=== PATIENT | female | born 2000 | race Caucasian/White ===

== ENCOUNTER 2020-08-16 12:53 | Outpatient (REF) | payer MEDICAID, SELFPAY ==
--- NOTE | 2020-08-16 13:10 | US_ITS ---
EXAMINATION: US DIAGNOSTIC ULTRASOUND BREAST, RIGHT CLINICAL INFORMATION: Right breast lump upper outer quadrant with pain.. COMPARISON: None. TECHNIQUE: Ultrasound of the breast is performed with real-time abreu scale imaging and color Doppler. FINDINGS: There is no focal suspicious finding. There is no solid mass, architectural abnormality, duct ectasia, or edema in the soft tissue planes. Results are discussed with the patient at time of visit. US/US breast RT limited IMPRESSION: No suspicious ultrasound findings in region of palpable abnormality right breast. Dense breast tissue present. ASSESSMENT: BI-RADS 1: Negative RECOMMENDATION: Patient should be managed based on the clinical impression. No suspicious ultrasound findings.
== END 2020-08-16 12:54 | disposition home or self-care (01) ==
LOC: HO.MAMMO 12:53
PROVIDERS: PCP Registered Nurse; Visit Provider Registered Nurse
DX: N63.11 Unspecified lump in the right breast, upper outer quadrant (principal); N64.4 Mastodynia
CPT/HCPCS: 76642

== ENCOUNTER 2021-06-19 10:59 | Outpatient (REF) | payer MEDICAID, SELFPAY ==
[2021-06-19 15:53] LABS: CT PCR NOT DETECTED (Not Detect.); NG PCR NOT DETECTED (Not Detect.)
[2021-06-20 08:40] LABS: BV Int Neg Control Negative (Negative); BV Int Pos Control Positive (Positive)
== END 2021-06-19 11:00 | disposition home or self-care (01) ==
LOC: HO.LAB 10:59
PROVIDERS: Visit Provider Advanced Practice Midwife
DX: Z01.419 Encounter for gynecological examination (general) (routine) without abnormal findings (principal); Z11.8 Encounter for screening for other infectious and parasitic diseases; Z11.3 Encounter for screening for infections with a predominantly sexual mode of transmission; Z88.8 Allergy status to other drugs, medicaments and biological substances
CPT/HCPCS: 87480; 87491; 87510; 87591; 87660; 88142

== ENCOUNTER 2021-08-12 09:37 | Emergency (ER) | payer MEDICAID, SELFPAY ==
--- NOTE | ~2021-08-12 | XR_ITS ---
EXAMINATION: LEFT HAND/WRIST. CLINICAL INFORMATION: Left wrist pain COMPARISON: None TECHNIQUE: 4 views FINDINGS: There is no visible acute fracture, dislocation or subluxation. Especially there is no fracture involving the scaphoid bone or the carpal bones. The soft tissues are normal. XR/XR hand wrist LT IMPRESSION: Unremarkable left hand/wrist exam.
[2021-08-12 10:13] VITALS: BP 105/67; PULSE 62; RESP 18; TEMP 36.2; O2SAT 99; BMI 25.4
--- NOTE | 2021-08-12 11:29 | ED.EXTPRO ---
HPI - Extremity Problem General Chief complaint: Extremity Injury, Upper Stated complaint: hand inj Time Seen by Provider: 08/12/21 10:36 Source: patient Mode of arrival: ambulatory History of Present Illness HPI Narrative: 20-year-old female with no significant past medical history presenting to the ED complaining of left wrist pain s/p stacking boxes at work since yesterday. Denies direct trauma/injury or fall. Denies numbness, tingling MD Complaint: extremity pain, joint swelling and joint paint Onset (ago): day(s) Related Data Home Medications Medication Instructions Recorded Confirmed etonogestrel 68 mg subdermal SUBDERMAL 06/19/21 06/19/21 implant (Nexplanon) Allergies Allergy/AdvReac Type Severity Reaction Status Date / Time ibuprofen [From MOTRIN] Allergy Unknown SWELLING Verified 06/19/21 11:11 Review of Systems Review of Systems: Constitutional: No Fever, No Chills ENT/Mouth: No Ear Pain, No Nasal Congestion, No sore throat Cardiovascular: No Chest Pain, No SOB Respiratory: No Cough, No Sputum, No Wheezing Gastrointestinal: No Nausea, No Vomiting, No Abdominal pain Musculoskeletal: + joint pain, No Myalgias, No Joint Swelling Skin: No Skin Lesions, No rash Neuro: No Weakness, No Numbness, No Paresthesias Yes all other systems are reviewed and are negative FOR[facility]LY [facility] Past Medical History Attestation statement: The following information was validated with the patient. Family History Family History Paternal Grandmother Breast cancer Social History Social History Alcohol intake: never Patient Tobacco Use Status: Never used Tobacco Advance Directives: No Advance Directives Information Provided: No Patient : No Gender identity: Female Physical Exam Vital Signs: Vital Signs: Last Vital Signs Temp 97.1 F 08/12/21 10:13 Pulse 62 08/12/21 10:13 Resp 18 08/12/21 10:13 BP 105/67 08/12/21 10:13 Pulse Ox 99 08/12/21 10:13 BMI result Body Mass Index 25.4 Const: General: cooperative, healthy appearing and no acute distress Orientation/consciousness: patient oriented x3 Limitations: no limitations HENMT: Head: Yes normal to inspection Ears: hearing grossly normal bilaterally General nose exam: Normal external nose present Face and sinus: Yes normal facial exam Eyes: General: appearance normal, both eyes and all related structures EOM: EOMs intact bilaterally Neck: Neck: Yes normal visual inspection and Yes no meningeal signs Resp: Effort & Inspection: normal respiratory effort and no respiratory distress Cardio: Rate: regular rate Peripheral pulses: radial pulses present Skin: Rashes: no rashes Wounds: no wounds Neuro: General: patient oriented x3 and no meningeal signs Gait exam (Neuro): Normal gait present Extrem: Other: Left wrist with scaphoid/radial aspect tenderness to palpation. No deformity. Limited inversion secondary to pain. Hand nontender. [id number] opposition intact. Neurovascular intact. Sensation intact to light touch. No erythema/fluctuance, no streaking General: Yes normal to inspection Course Course Course Narrative: XR hand wrist LT IMPRESSION: Unremarkable left hand/wrist exam. >> patient placed in thumb spica secondary to scaphoid tenderness. Discussed worrisome signs and symptoms and strict return precautions as needed follow-up with orthopedics MDM - Extremity (Nontraumatic) MDM Narrative Medical decision making narrative: 20-year-old female with no significant past medical history presenting to the ED complaining of left wrist pain s/p stacking boxes at work since yesterday. On exam vital signs stable, NAD, physical exam as above. Concern for wrist strain/sprain versus occult fracture/scaphoid fracture Plan: X-rays. Will place patient in thumb spica and follow-up with orthopedics Discharge Plan Discharge Clinical Impression: Strain of left wrist Qualifiers: Encounter type: initial encounter Qualified Code(s): S66.912A - Strain of unspecified muscle, fascia and tendon at wrist and hand level, left hand, initial encounter Patient Disposition: Home, Self-Care Instructions: Wrist Injury (ED) Additional Instructions: Your x-rays were unremarkable, however where you are tender we specifically worry about a specific bone, please wear wrist splint at all times you may take off to shower. Please follow-up with orthopedics in 1-2 weeks Take Tylenol and Motrin at home for pain/swelling Ice her wrist If pain becomes unbearable please return to the ED Prescriptions: No Action Nexplanon 68 mg implant subdermal RF: 0 Referrals: Inez Gruber MD [Physician] - 10 days
== END 2021-08-12 11:43 | disposition home or self-care (01) ==
PROVIDERS: Emergency Provider Emergency Medicine
DX: S66.912A Strain of unspecified muscle, fascia and tendon at wrist and hand level, left hand, initial encounter (principal); X50.0XXA Overexertion from strenuous movement or load, initial encounter; Y93.89 Activity, other specified; Y92.512 Supermarket, store or market as the place of occurrence of the external cause; Y99.0 Civilian activity done for income or pay
CPT/HCPCS: 29125; 73110; 73130; 99283

== ENCOUNTER 2022-06-19 12:42 | Outpatient (REF) | payer MEDICAID, SELFPAY | END 2022-06-19 12:43 | disposition home or self-care (01) | LOC: HO.MAMMO 12:42 | PROVIDERS: Visit Provider Registered Nurse | DX: Z13.89 Encounter for screening for other disorder (principal) ==

== ENCOUNTER 2022-06-19 12:55 | Outpatient (REF) | payer MEDICAID, SELFPAY ==
--- NOTE | ~2022-06-19 | US_ITS ---
EXAMINATION: US DIAGNOSTIC ULTRASOUND BREAST, RIGHT CLINICAL INFORMATION: 21-year-old with palpable fullness and tenderness outer right breast. No discharge. No erythema. COMPARISON: Ultrasound right breast 08/16/2020. TECHNIQUE: Ultrasound right breast is targeted to the areas of clinical concern outer quadrants using grayscale imaging and color Doppler without and with harmonics. Patient is able to point to the area of concern at time of imaging. FINDINGS: There is a small cyst 9:00 position 4 cm from nipple corresponding to area of clinical palpable concern. This is anechoic with increased through-transmission of sound and no associated color flow and measures 1.2 x 0.3 x 0.8 cm. There is no focal suspicious finding. There is no solid mass, architectural abnormality, duct ectasia, or edema in the soft tissue planes. No skin thickening or edema tracking in soft tissue planes. Results are discussed with the patient at time of visit. US/US breast RT limited IMPRESSION: -Small simple cyst at area of palpable concern measuring 1.2 x 0.3 x 0.8 cm. ASSESSMENT: BI-RADS 2: Benign RECOMMENDATION: Patient may be managed based on the clinical impression as needed.
== END 2022-06-19 12:56 | disposition home or self-care (01) ==
LOC: HO.MAMMO 12:55
PROVIDERS: Visit Provider Registered Nurse
DX: N60.21 Fibroadenosis of right breast (principal)
CPT/HCPCS: 76642

== ENCOUNTER 2022-07-15 12:21 | Outpatient (REF) | payer MEDICAID, SELFPAY ==
[2022-07-15 17:19] LABS: CT PCR NOT DETECTED (Not Detect.); NG PCR NOT DETECTED (Not Detect.)
[2022-07-16 09:02] LABS: BV Int Neg Control Negative (Negative); BV Int Pos Control Positive (Positive)
== END 2022-07-15 12:22 | disposition home or self-care (01) ==
LOC: HO.LNP 12:21
PROVIDERS: Visit Provider Advanced Practice Midwife
DX: Z01.419 Encounter for gynecological examination (general) (routine) without abnormal findings (principal)
CPT/HCPCS: 87480; 87491; 87510; 87591; 87660

== ENCOUNTER 2022-12-24 09:23 | Emergency (ER) | payer MEDICAID, SELFPAY ==
--- NOTE | ~2022-12-24 | XR_ITS ---
EXAMINATION: XR FOOT, LEFT CLINICAL INFORMATION: Pain. Injury. COMPARISON: None available. TECHNIQUE: AP, lateral, and oblique views of the left foot. FINDINGS: The bones and soft tissues are normal. No fracture. Alignment is anatomic. Joint spaces are maintained. XR/XR foot LT min 3V IMPRESSION: Normal left foot.
[2022-12-24 09:25] VITALS: BP 100/45; PULSE 63; RESP 20; TEMP 36.1; O2SAT 100; BMI 25.7
--- OUTSIDE RECORDS SUMMARY | 2022-12-24 09:50 | XMS_ITS | Continuity of Care Document ---
Author Name Unknown Organization [facility] Address [address] [place] [id number]- Care Team Providers Care Drill Hand Name Role Phone Yohana Posey MD Primary Care Physician [phone] Encounter [facility] [place] Date(s): 03/10/22 - 03/10/[address] [address]- Discharge Disposition: A-D/C Walkout Attending Physician: Not on Staff, Attending MD Admitting Physician: Not on Staff, Admitting MD Referring Physician: Not on Staff, Referring MD Allergies, Adverse Reactions, Alerts No Known Allergies Vital Signs Most recent to oldest [Reference Range]: 1 Oxygen Saturation [94-100 %] 100 % (03/10/22 1:43 AM) Pulse Rate [55-90 bpm] 75 bpm (03/10/22 1:43 AM) Blood Pressure [90-138/55-84 mm Hg] 130/ 68mm Hg (03/10/22 1:43 AM) Respiratory Rate [16-30 br/min] 16 br/mi n (03/10/22 1:43 AM) Temperature [96.8-100.4 DegF] 98.6 DegF (03/10/22 1:43 AM) Mode of Delivery (Oxygen) Room air (03/10/22 1:43 AM) Blood pressure sites Arm, left (03/10/22 1:43 AM) Temperature Route Oral (03/10/22 1:43 AM)
[2022-12-24 10:00] VITALS: BP 100/62; PULSE 57; RESP 16; O2SAT 100
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
== END 2022-12-24 12:06 | disposition home or self-care (01) ==
PROVIDERS: Emergency Provider Emergency Medicine Emergency Medical Services
DX: S00.83XA Contusion of other part of head, initial encounter (principal); S93.602A Unspecified sprain of left foot, initial encounter; Y04.2XXA Assault by strike against or bumped into by another person, initial encounter; Y93.9 Activity, unspecified; Y92.9 Unspecified place or not applicable; Y99.9 Unspecified external cause status
CPT/HCPCS: 73630; 99283; 99284

== ENCOUNTER 2023-06-18 12:01 | Outpatient (REF) | payer MEDICAID, SELFPAY ==
[2023-06-18 13:01] LABS: MANUAL DIFF FLAG NO
[2023-06-18 13:21] LABS: Basophils Percent Auto 0.2 % (0-2); Eosinophils Absolute Auto 0.1 X10*3/uL (0.0-0.4); Eosinophils Percent Auto 0.6 % (0-4); Hematocrit 38.2 % (37.0-47.0); Hemoglobin 12.3 g/dl (12.0-16.0); Imm Gran Abs Auto 0.02 X10*3/uL (0.00-0.03); Imm Gran Pct Auto 0.2 % (0.0-0.4); Lymphocytes Absolute Auto 2.1 X10*3/uL (1.2-4.9); Lymphocytes Percent Auto 24.8 % (20-40); Mean Corpuscular HGB Conc 32.2 g/dl (31.0-35.0); Mean Corpuscular Hemoglobin 28.4 pg (27.0-33.0); Mean Corpuscular Volume 88.2 fL (80.0-98.0); Monocytes Absolute Auto 0.6 X10*3/uL (0.1-1.2); Neutrophils Absolute Auto 5.5 x10*3/uL (2.0-8.3); Neutrophils Percent Auto 67.2 % (45-73); Platelet Count 283 X10*3/uL (160-400); Red Blood Count 4.33 X10*6/uL (4.20-5.50); White Blood Count 8.3 X10*3/uL (4.8-10.8)
[2023-06-18 14:06] LABS: Estimated Average Glucose 94 mg/dL; Hemoglobin A1c % 4.9 % (<6.0)
[2023-06-18 14:14] LABS: Alanine Aminotransferase 10 U/L (0-31); Albumin Level 4.5 g/dL (3.5-5.0); Alkaline Phosphatase 43 U/L (39-117); Anion Gap 12 (12-20); Aspartate Amino Transferase 15 U/L (5-31); Bilirubin Total 0.3 mg/dL (0.0-1.0); Blood Urea Nitrogen 11 mg/dL (9-16); Calcium 9.5 mg/dL (8.4-10.2); Carbon Dioxide 26 mmol/L (22-29); Chloride 105 mmol/L (96-108); Cholesterol 134 mg/dL (<200); Estimated Glomerular Filt Rate > 60; Glucose Random 95 mg/dL (60-115); HDL Cholesterol 56 mg/dL (>40); LDL Cholesterol Calculated 72 mg/dL (<100); Potassium 4.2 mmol/L (3.3-5.1); Sodium 139 mmol/L (135-145); Total Protein 6.9 g/dL (6.5-8.0); Triglycerides 32 mg/dL (<150)
[2023-06-18 14:29] LABS: TSH reflex Free T4 0.68 uIU/mL (0.32-4.0)
[2023-06-18 15:21] LABS: CT PCR NOT DETECTED (Not Detect.); NG PCR NOT DETECTED (Not Detect.)
[2023-06-19 03:54] LABS: Syphilis Screen Nonreactive (Nonreactive)
[2023-06-19 04:01] LABS: HBS Num1 15.66 mIU/mL (0-7.99); HBc Num1 0.08 S/CO (0.00-0.79); HBsAGNum1 0.37 S/CO (0.00-0.99); HIV AB/AG Nonreactive (Nonreactive); HIV Num 1 0.05 S/CO (0.00-0.99); Hepatitis B Core Antibody Nonreactive (Nonreactive); Hepatitis B Surface Antigen Negative (Negative); ~HepC Num1 0.07 S/CO (0.00-0.79); ~Hepatitis B Surface Antibody REACTIVE (Nonreactive); ~Hepatitis C Antibody Nonreactive (Nonreactive)
== END 2023-06-18 12:02 | disposition home or self-care (01) ==
LOC: HO.HHCL 12:01
PROVIDERS: Visit Provider Student in an Organized Health Care Education/Training Program
DX: Z00.00 Encounter for general adult medical examination without abnormal findings (principal)
CPT/HCPCS: 0353U; 80053; 80061; 83036; 84443; 85025; 86704; 86706; 86780; 86803; 87340; 87389

== ENCOUNTER 2023-07-17 15:00 | Outpatient (AMB) | payer MEDICAID, SELFPAY ==
--- NOTE | 2023-07-17 15:13 | A.OFFVIS_ITS ---
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 She had a Nexplanon inserted 2 years ago she has been bleeding more on the Nexplanon then she has not been bleeding a very irregular bleeding pattern she says she gets symptoms of BV which is the odor but not so much itching or any abnormal discharge and she has been using boric acid capsules herself she last used 1 yesterday and this morning she did not realize she had an appointment. As she recently saw her primary care provider who did blood work and told her she was not anemic. 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 She wears full P PE to protect herself. She is nervous about the pain of any procedure. [facility] Family History Paternal Grandmother Breast cancer Social History Alcohol intake: never Patient Tobacco Use Status: Never used Tobacco Substance Use Type: Marijuana Gender identity: Female Female Reproductive History Menstrual Age of Menarche: 10 Duration of menses: other (every 2 wks 7 days) Date of last menstrual period: 07/10/23 control method: implanted History of abnormal pap smear: No (last pap done /06/19/2021, neg.) Physical Exam Vital Signs: Last Vital Signs BP 110/60 07/17/23 15:17 BMI result Body Mass Index 24.4 Const Other: Nexplanon is palpable in left arm General: healthy appearing, comfortable, no acute distress, well developed and alert Nutritional Appearance: average body habitus Orientation/consciousness: patient oriented x3 Limitations: no limitations HEENT Head: Yes normocephalic Neck Neck: Yes normal visual inspection Chest Chest palpation & inspection: normal inspection of the chest Breast/axilla inspection: normal inspection of the breasts and normal inspection of the axillae Breast/axilla palpation: normal palpation of the breasts and normal palpation of the axillae Resp Effort & Inspection: normal respiratory effort GI Inspection: Yes normal to inspection, No Abdominal wall edema and No distended Palpation (GI): Soft to palpation and nontender Other: Vagina pink and moist there is clear discharge that almost peer appears like fertile mucus her cervix is open ever so slightly. Her uterus is retroverted mobile nontender she has good tone with Kegel General: Yes bladder normal to palpation External Female Exam: normal external appearance and normal appearance of the urethra Speculum Exam - Vagina: normal appearance of the vagina, normal palpation and normal vaginal discharge Speculum Exam - Cervix: normal appearance of the cervix, normal palpation and nontender Bimanual exam- vagina & uterus: normal bimanual exam, normal palpation, uterine size normal, bladder normal to palpation, consistency normal, normal palpation, uterine mobility normal, uterine shape normal, No Cervical tenderness present, non-tender and no cervical motion tenderness Bimanual Exam- Adnexa, other: normal adnexae, no masses, normal and No adnexal tenderness Neuro General: patient oriented x3 Assessment & Plan Assessment & Plan (1) control counseling: Code(s): Z30.09 - Encounter for other general counseling and advice on contraception (2) Well woman exam with routine gynecological exam: Code(s): Z01.419 - Encounter for gynecological examination (general) (routine) without abnormal findings (3) Encounter for surveillance of Nexplanon subdermal contraceptive: Code(s): Z30.46 - Encounter for surveillance of implantable subdermal contraceptive (4) Potential exposure to STD: Code(s): Z20.2 - Contact with and (suspected) exposure to infections with a predominantly sexual mode of transmission (5) Cervical cancer screening: Comment: 06/19/21 pap= neg Code(s): Z12.4 - Encounter for screening for malignant neoplasm of cervix (6) Breakthrough bleeding on Nexplanon: Comment: Recounts bleeding almost every other week for much of the last 2 years. Code(s): N92.1 - Excessive and frequent menstruation with irregular cycle; Z97.5 - Presence of (intrauterine) contraceptive device (7) Vaginal odor: Comment: She treats it herself with boric acid capsules. Exam completely normal and negative today. Code(s): N89.8 - Other specified noninflammatory disorders of vagina Plan -----Discussed in this visit the following: healthy balanced diet, regular and consistent exercise, getting recommended health screens, doing the best she can for her particular health concerns, kegel exercises, pap smear screening and followup recommendations, mammography screening and SBE, normal changes in cycles in her life stage--- .-I reviewed with the patient, all of the currently common used methods of control that are available. We reviewed how they work in the body, how they are taken, common side effects, uncommon side effects, precautions, and contraindications. -Discussed also factors that influence their effectiveness and use, and womens satisfaction with the method. -Discussed how each are used, and drawbacks of each method as well. -Methods covered included: condoms, control pills, control patches, control rings, Depo-Provera, Nexplanon, Mirena and Kyleena IUDs, and ParaGard IUDs. All of the above methods were covered in great detail including their side effect profiles and common experiences that women have and ways to mitigate against the negative experiences including attention to diet and exercise patient's with bleeding challenges that may occur her and efforts to time the initiation of the method to this start of the menstrual period. Patient was given a choice of continuing with the Nexplanon or trying a 1 month course of control pills to see if it would ameliorate some of the breakthrough bleeding. But after full discussion of all of the methods she has chosen to switch to a Mirena. I did discuss with her that I think that her cervix and uterus could accommodate a Mirena and not be it limited to using a Kyleena and it will give her better bleeding control after bleeding often on for 2 years. She is nervous that it will hurt and wants to bring her sister and I told her that is fine but sometimes people tense up more when they have somebody with them but it will be fine. Ideally it we would insert it when she is bleeding. I did show her her cervix that looked consistent with midcycle ovulatory mucus but that would not be expected to be present with a Nexplanon that is been in 2 years.. chart will be checked as much as is possible. Did tell her also that at this point it does not appear that she has any thing close to BV. Testing for gonorrhea chlamydia trichomoniasis Gardnerella and yeast done though the boric acid probably will interfere with results. Also discussed that for women with recurrent BV using condoms is a solution. Orders: Orders Bacterial Vaginosis Panel Today Z20.2 - Contact with and (suspected) exposure to infections with a predominantly sexual mode of transmission CT NG by PCR Today Z01.419 - Encounter for gynecological examination (general) (routine) without abnormal findings Coding Level of Care Code Est Pt Prev Care [id number]) Diagnoses control counseling Z30.09 Well woman exam with routine gynecological exam Z01.419 Encounter for surveillance of Nexplanon subdermal contraceptive Z30.46 Potential exposure to STD Z20.2 Cervical cancer screening Z12.4 Breakthrough bleeding on Nexplanon N92.1; Z97.5 Vaginal odor N89.8
[2023-07-17 15:17] VITALS: BP 110/60; BMI 24.4
== END 2023-07-17 15:53 | disposition home or self-care (01) ==
LOC: HO.HWS 15:00
PROVIDERS: PCP Student in an Organized Health Care Education/Training Program; Visit Provider Advanced Practice Midwife
DX: Z30.09 Encounter for other general counseling and advice on contraception (principal); Z01.419 Encounter for gynecological examination (general) (routine) without abnormal findings; Z30.46 Encounter for surveillance of implantable subdermal contraceptive; Z20.2 Contact with and (suspected) exposure to infections with a predominantly sexual mode of transmission; Z12.4 Encounter for screening for malignant neoplasm of cervix; N92.1 Excessive and frequent menstruation with irregular cycle; Z97.5 Presence of (intrauterine) contraceptive device; N89.8 Other specified noninflammatory disorders of vagina
CPT/HCPCS: 99395

== ENCOUNTER 2023-07-17 15:00 | Outpatient (REF) | payer MEDICAID, SELFPAY ==
[2023-07-18 03:16] LABS: CT PCR NOT DETECTED (Not Detect.); NG PCR NOT DETECTED (Not Detect.)
[2023-07-18 12:41] LABS: BV Int Neg Control Negative (Negative); BV Int Pos Control Positive (Positive)
== END 2023-07-17 15:01 | disposition home or self-care (01) ==
LOC: HO.LAB 15:00
PROVIDERS: PCP Student in an Organized Health Care Education/Training Program; Visit Provider Advanced Practice Midwife
DX: Z01.419 Encounter for gynecological examination (general) (routine) without abnormal findings (principal); Z20.2 Contact with and (suspected) exposure to infections with a predominantly sexual mode of transmission; N92.1 Excessive and frequent menstruation with irregular cycle; N89.8 Other specified noninflammatory disorders of vagina; Z97.5 Presence of (intrauterine) contraceptive device
CPT/HCPCS: 0353U; 87480; 87510; 87660; 99395

== ENCOUNTER 2023-07-29 09:39 | Outpatient (AMB) | payer MEDICAID, SELFPAY ==
--- NOTE | 2023-07-29 09:44 | A.OFFVIS_ITS ---
Intake Vital Signs 07/29/23 09:54 Height 5 ft 1 in Weight 131 lb BMI 24.7 BP 114/68 Intake Visit Reasons: Mirena Biological Science Technician Required: No Information Interpreted: non-clinical & clinical Student Development Coordinator: Student Development Coordinator Present (Daya) Accompanied by: Sister Allergies ibuprofen [From MOTRIN] Allergy (Unknown, Verified 07/29/23 09:54) SWELLING Medication List - Last Reconciled 07/29/23 by Marya Carrasco CNM etonogestrel (Nexplanon) subdermal Is last menstrual period known: Yes Last menstrual period: 07/26/23 Post menopausal: No Patient : No HPI Mirena HPI Details Patient is here for Mirena insertion she is very very very nervous she brought her sister with her. She got her ?period on Thursday and is still bleeding rather heavily. She has a nexplanon and has had such irregular bleeding that that is why she wants it removed. [facility], [facility] Family History Paternal Grandmother Breast cancer Alcohol intake: never Patient Tobacco Use Status: Never used Tobacco Substance Use Type: Marijuana Gender identity: Female Female Reproductive History Menstrual Age of Menarche: 10 Date of last menstrual period: 07/26/23 control method: implanted Date of last pap smear: 06/19/21 (negative) Physical Exam Vital Signs: Last Vital Signs BP 114/68 07/29/23 09:54 BMI result Body Mass Index 24.7 Other: Nulliparous cervix very anterior uterus retroverted heavy menses. External Female Exam: normal external appearance Speculum Exam - Vagina: normal appearance of the vagina and normal vaginal discharge Speculum Exam - Cervix: normal appearance of the cervix Bimanual exam- vagina & uterus: normal bimanual exam, uterine size normal, consistency normal, uterine mobility normal, uterine shape normal and non-tender Bimanual Exam- Adnexa, other: normal adnexae, no masses and No adnexal tenderness Office Procedures IUD Insert/Removal Details Details: ---Patient is here for her IUD insertion. Bimanual exam was done. Her uterus is firm, nontender, and appropriate sized, and is retroverted with her cervix very anterior. . The cervix was swabbed with Betadine. Tenaculum was placed on the cervix slowly to minimize cramping. The uterus was sounded slowly and gently she show a measurement of 7 cm. The IUD was removed from its package, after checking identifying information and lot dates and expiration dates and and gently inserted into the os, as per the IUD insertion procedure. The strings were then trimmed to 3-4 centimetres. The tenaculum was removed and gentle pressure applied with a swab, until any bleeding subsided from the tenaculum sites. The speculum was gently removed. The patient sat up. I Reviewed what to expect, and what indications would necessitate a call. Pt to call for fever, untoward pain or cramping. I reviewed any appropriate backup method. Pt to return for recheck as scheduled. She was feeling nauseous from the nerves before the procedure and she was still feeling that afterwards and she is resting to recover from the vagal response. [id number] Insertion Procedure code (CPT) selection complete Office Meds Mirena 21 mcg/24 hours (8 yrs) 52 mg intrauterine device Performing Provider: Marya Carrasco CNM Performing Location: [facility] Administered by: DARRIUS Gallego on 07/29/23 10:20 Dose Route Admin Location Dispensed Lot Number Expiration Date [facility] [employer] 1 device [facility] [place] 1 device [id number] 08/06/25 [id number] [facility] Results AMB Test Urine AMB Test Urine Negative Last Edit by DARRIUS Gallego on 07/29/23 09:56 Results Reviewed Results Reviewed: Laboratory Last Values Tst Clinic Negative 07/29/23 09:56 Assessment & Plan Assessment & Plan (1) Breakthrough bleeding on Nexplanon: Comment: Recounts bleeding almost every other week for much of the last 2 years. Code(s): N92.1 - Excessive and frequent menstruation with irregular cycle; Z97.5 - Presence of (intrauterine) contraceptive device (2) Encounter for insertion of mirena IUD: Onset Date: ~07/29/23 Code(s): Z30.430 - Encounter for insertion of intrauterine contraceptive device Plan Patient tolerated procedure well she did feel nauseous and felt like she needed to rest for a little while after and she is with her sister resting on her side reviewed the normal vagal response and the range of experiences. Patient is going to be given and note for work today and she may take ibuprofen Q 6 hours as needed but never on an empty stomach we will see her in 6 weeks to see how she is doing with the Mirena and if she likes it and is up to getting the Nexplanon removed on the same day she may schedule it that way I will leave that decision up to her. I reviewed what situations would require a call any sign of severe pain or fever or any other problem but to expect some cramping. Orders: Orders AMB HCG Urine Test Today Z32.02 - Encounter for test, result negative AMB IUD Insertion/Removal - Practice Supplied Today Z30.430 - Encounter for insertion of intrauterine contraceptive device Coding Level of Care Code Est Pt Level 3 (11079) Diagnoses Breakthrough bleeding on Nexplanon N92.1; Z97.5 Encounter for insertion of mirena IUD Z30.430 CPT Codes Details - CPT: 24712-FMX Insertion ([id number])
[2023-07-29 09:54] VITALS: BP 114/68; BMI 24.7
== END 2023-07-29 10:26 | disposition home or self-care (01) ==
LOC: HO.HWS 09:39
PROVIDERS: PCP Student in an Organized Health Care Education/Training Program; Visit Provider Advanced Practice Midwife
DX: N92.1 Excessive and frequent menstruation with irregular cycle (principal); Z30.430 Encounter for insertion of intrauterine contraceptive device; Z32.02 Encounter for pregnancy test, result negative
CPT/HCPCS: 11982; 58300

== ENCOUNTER → 2023-07-29 09:39 | Outpatient (BNVA) | payer MEDICAID, SELFPAY | PROVIDERS: PCP Student in an Organized Health Care Education/Training Program; Visit Provider Advanced Practice Midwife | DX: Z30.430 Encounter for insertion of intrauterine contraceptive device (principal); N92.1 Excessive and frequent menstruation with irregular cycle | CPT/HCPCS: 11982; 58300; 81025; J7298 ==

== ENCOUNTER 2023-08-13 09:47 | Outpatient (AMB) | payer MEDICAID, SELFPAY ==
[2023-08-13 10:16] VITALS: BP 104/62; BMI 24.9
--- NOTE | 2023-08-13 10:16 | MHC.OFFVIS ---
Intake Vital Signs 08/13/23 10:16 Height 5 ft 1 in Weight 132 lb BMI 24.9 BP 104/62 Intake Visit Reasons: Nexplanon removal Clerical Investigator Required: No Information Interpreted: non-clinical & clinical Physician/Internist: Physician/Internist Present (Daya) Allergies ibuprofen [From MOTRIN] Allergy (Unknown, Verified 08/13/23 10:17) SWELLING Medication List - Last Reconciled 08/13/23 by Marya Carrasco CNM etonogestrel (Nexplanon) subdermal levonorgestrel (Mirena) intrauterine Is last menstrual period known: No Post menopausal: No Patient : No HPI Nexplanon removal HPI Details Patient is here for her Nexplanon removal she has had it for about 2 years she had long periods of bleeding with the Nexplanon and decided to have a Mirena inserted the Mirena was inserted at the last visit and she is doing fairly well with it and she has just had some light bleeding and just had cramping for couple of days and that was all so she is here to remove the Nexplanon. PFSH Family History Paternal Grandmother Breast cancer Social History Alcohol intake: never Patient Tobacco Use Status: Never used Tobacco Substance Use Type: Marijuana Patient : No Gender identity: Female Female Reproductive History Menstrual Age of Menarche: 10 control method: progestin IUCD and implanted Date of last pap smear: 06/19/21 (negative) Physical Exam Vital Signs: Last Vital Signs BP 104/62 08/13/23 10:16 BMI result Body Mass Index 24.9 Office Procedures Contraception Insert/Removal Details Details: Nexplanon Removal/Reinsertion Insertion Procedure The patient was placed in a supine position with her non dominant hand resting under her head. The insertion site was located: 8-10cm from the medial epicondyle notch of the humerus, posterior to the sulcus, between the triceps and biceps muscle. The area of the previous implant was identified and the distal tip located. This area was cleansed with an alcohol prep and 3 ml of 1% Lidocaine on a 25 gauge needle and syringe was utilized for adequate anesthesia to the insertion site. After ascertaining adequate anesthesia, the area was prepped with Betadine solution. The skin over the distal tip was incised with a #11 blade scalpel and the capsule was located and entered freeing the implant from the canal. The implant was removed with a gentle tug using a mosquito clamp and removed intact. Direct pressure was applied to the insertion site for hemostasis, minimal bleeding was observed. Steri strips, Tegaderm covering, gauze pads, and Yusef wrap dressing were secured with paper tape. The patient tolerated the procedure well and left the office in good condition. [id number] - Removal Results AMB Test Urine AMB Test Urine Negative Last Edit by DARRIUS Gallego on 08/13/23 10:28 Assessment & Plan Assessment & Plan (1) Breakthrough bleeding on Nexplanon: Comment: Recounts bleeding almost every other week for much of the last 2 years. Code(s): N92.1 - Excessive and frequent menstruation with irregular cycle; Z97.5 - Presence of (intrauterine) contraceptive device (2) Encounter for Nexplanon removal: Code(s): Z30.46 - Encounter for surveillance of implantable subdermal contraceptive Plan Procedure set section for details patient tolerated procedure well. Patient is to keep the Tegaderm dressing on for at least 3 days to keep it clean and sterile and keep the pressure dressing on for the rest of the day especially if she has to use her arm for any lifting effort at work consider presenting letter for no heavy lifting at work today. If she got any signs of infection she would need to seek emergency care. Orders: Orders AMB HCG Urine Test Today Z32.02 - Encounter for test, result negative AMB Nexplanon/Implanon Insertion/Removal - Practice Supplied Today N92.1 - Excessive and frequent menstruation with irregular cycle, Z30.46 - Encounter for surveillance of implantable subdermal contraceptive, Z97.5 - Presence of (intrauterine) contraceptive device Coding Level of Care Code Est Pt Level 3 (95708) Diagnoses Breakthrough bleeding on Nexplanon N92.1; Z97.5 Encounter for Nexplanon removal Z30.46 CPT Codes Details - Contraception: 86517 - Removal ([id number])
== END 2023-08-13 10:56 | disposition home or self-care (01) ==
PROVIDERS: PCP Student in an Organized Health Care Education/Training Program; Visit Provider Advanced Practice Midwife
DX: Z30.46 Encounter for surveillance of implantable subdermal contraceptive (principal); N92.1 Excessive and frequent menstruation with irregular cycle; Z97.5 Presence of (intrauterine) contraceptive device; Z32.02 Encounter for pregnancy test, result negative
CPT/HCPCS: 11982

== ENCOUNTER → 2023-08-13 09:47 | Outpatient (BNVA) | payer MEDICAID, SELFPAY | PROVIDERS: PCP Student in an Organized Health Care Education/Training Program; Visit Provider Advanced Practice Midwife | DX: Z30.46 Encounter for surveillance of implantable subdermal contraceptive (principal); N92.1 Excessive and frequent menstruation with irregular cycle; Z97.5 Presence of (intrauterine) contraceptive device | CPT/HCPCS: 11982; 81025 ==

== ENCOUNTER → 2023-09-17 10:01 | Outpatient (BNVA) | payer SELFPAY | PROVIDERS: PCP Student in an Organized Health Care Education/Training Program; Visit Provider Advanced Practice Midwife ==

== ENCOUNTER 2024-03-28 00:17 | Emergency (ER) | payer MEDICAID, SELFPAY ==
[2024-03-28 00:22] VITALS: BP 108/49; PULSE 69; RESP 18; TEMP 36.8; O2SAT 98; BMI 25.9
[2024-03-28 00:41] VITALS: BP 103/65; PULSE 67; RESP 16; O2SAT 98
[2024-03-28 00:42] LABS: UPreg QC Valid YES; Urine Pregnancy NEGATIVE (NEGATIVE)
[2024-03-28 00:46] LABS: Appearance Urine Cloudy; Bacteria Urine 4+ (None Seen); Color Urine Orange; Glucose Urine UA Negative (Negative); Hyaline Casts Urine 0-2 /LPF (0-2); Leukocyte Esterase Urine Large (3+) (Negative); Nitrite Urine Positive (Negative); RBC Urine >20 /HPF (0-2); UACC Culture Trigger YES; UMIC TRIGGER UACC YES; Urine Blood Small (1+) (Negative); Urine Ketones Negative (Negative); Urine Protein 100 (2+) mg/dL (Neg-Trace)
--- NOTE | 2024-03-28 00:54 | ED_ITS ---
HPI - Female Genitourinary General Chief complaint: Urogenital-Female Stated complaint: ? UTI Time Seen by Provider: 03/28/24 00:36 Source: patient Mode of arrival: ambulatory Limitations: no limitations History of Present Illness ED Provider: STEFAN SCOTT Narrative: 23 yo female with no sig PMH here with c/o dysuria, frequency since no n/v/d or fevers, no flank pain. The patient has mild yellow discharge has no STI concerns but would like to be tested not treated. MD elicited complaint: dysuria and UTI Onset (ago): day(s) (3) Location of symptoms: urethra Severity: mild Quality of pain: burning Consistency: intermittent Vaginal discharge: yellow Vaginal bleeding: none Urinary symptoms: Dysuria, Urgency and Frequency Exacerbating factors: urination Relieving factors: none Associated symptoms: denies other symptoms Treatment prior to arrival: none Related Data Home Medications ?Medication ?Instructions ?Recorded ?Confirmed etonogestrel 68 mg subdermal subdermal 06/19/21 08/13/23 implant (Nexplanon) levonorgestrel 21 mcg/24 hr (up to intrauterine 08/13/23 08/13/23 8 years) 52 mg intrauterine device (Mirena) Previous Rx's ?Medication ?Instructions ?Recorded nitrofurantoin 100 mg PO BID 7 days #13 caps 03/28/24 monohydrate/macrocrystals 100 mg capsule (Macrobid) Allergies Allergy/AdvReac Type Severity Reaction Status Date / Time ibuprofen [From MOTRIN] Allergy Unknown SWELLING Verified 03/28/24 00:24 Review of Systems Review of Systems: Constitutional : No Fever, No Chills, No Fatigue ENT/Mouth : No sore throat, No Rhinorrhea Eyes: No Eye Pain, No Swelling, No Redness Cardiovascular : No Chest Pain, No SOB, No Dyspnea on Exertion Respiratory : No Cough, No Sputum Gastrointestinal : No Nausea, No Vomiting, No Diarrhea, No abdominal Pain Genitourinary : pos Dysuria,pos Urinary Frequency, No Hematuria, pos discharge Musculoskeletal : No joint pain, No Myalgias, No Joint Swelling Skin : No Skin Lesions, No rash Neuro : No Weakness, No Numbness, No Dizziness, no Headache All other systems reviewed and are negative PMFSH Past Medical History Attestation statement: The following information was validated with the patient. Source: old records reviewed Medical History (Updated 03/28/24 @ 00:58 by Marylou Dewitt DO) Breakthrough bleeding on Nexplanon Family History Family History Paternal Grandmother Breast cancer Social History Social History Alcohol intake: never Patient Tobacco Use Status: Never used Tobacco Substance Use Type: Marijuana Advance Directives: No Advance Directives Information Provided: Yes Gender identity: Female Physical Exam Vital Signs: Vital Signs: Last Vital Signs Temp 98.3 F 03/28/24 00:22 Pulse 67 03/28/24 00:41 Resp 16 03/28/24 00:41 BP 103/65 03/28/24 00:41 Pulse Ox 98 03/28/24 00:41 O2 Del Method Room Air 03/28/24 00:41 BMI result Body Mass Index 25.9 Appearance: Alert. Oriented X3. No acute distress. Eyes: Pupils equal, round and reactive to light. ENT: Pharynx normal. Neck: Normal inspection. Neck supple. CVS: Normal heart rate and rhythm. Pulses normal. Respiratory: No respiratory distress. Breath sounds normal. Abdomen: Soft and nontender. no CVA ttp Skin: Skin warm and dry. Normal skin color. Extremities: No lower extremity edema. Neuro: Oriented X 3. No motor deficit. No sensory deficit. Medical Decision Making Medical Decision Making [facility] Narrative: 23 yo female no sig PMH here with dysuria and frequency no pain no fevers no n/v/d no flank pain at this time thinks she has UTI - mild discharge will order UA and pelvic swabs no pain to suggest PID no pain to suggest stone. If positive start on macrobid Differential Diagnosis Differential Diagnoses: The differential diagnosis associated with the presentation includes UTI, vaginitis, STI Admission/Observation Consideration of admission/observation: Escalation of care including admission/observation considered not toxic, stable for DC Lab Data [facility] Lab Attestation statement: I reviewed the patient's lab results. Labs: Lab Results 03/28/24 Range/Units 00:33 Urine Color [place] A Urine Appearance Cloudy Urine pH 5.0 (5.0-9.0) Ur Specific [place] 1.020 (1.005-1.025) Urine Protein 100 (2+) H (Neg-Trace) mg/dL Urine Glucose (UA) Negative (Negative) mg/dL Urine Ketones Negative (Negative) mg/dL Urine Blood Small (1+) H (Negative) Urine Nitrite Positive H (Negative) Ur Leukocyte Esterase Large (3+) H (Negative) Urine RBC >20 H (0-2) /HPF Urine WBC 11-20 H (0-5) /HPF Ur Squamous Epith Cells 11-20 (0-2) /HPF Urine Bacteria 4+ (None Seen) Hyaline Casts 0-2 (0-2) /LPF Urine Test NEGATIVE (NEGATIVE) External Record Review External record reviewed: Office record Prescription Management I considered prescription management with: Antibiotic Discharge Plan Discharge Clinical Impression: Urinary tract infection Qualifiers: Urinary tract infection type: acute cystitis Hematuria presence: with hematuria Qualified Code(s): N30.01 - Acute cystitis with hematuria Patient Disposition: Home, Self-Care Instructions: Urinary Tract Infection in Women (ED) Additional Instructions: return for fevers, vomiting, severe pain or any other concerns will call you with any positive swab results finish antibiotics Prescriptions: New nitrofurantoin monohyd/m-cryst [Macrobid] 100 mg capsule 100 mg PO BID 7 Days Qty: 13 0RF Rx Instructions: must administer with a meal/food No Action Nexplanon 68 mg implant subdermal Mirena 21 mcg/24 hours (8 yrs) 52 mg intrauterine device intrauterine Print Language: Syriac
[2024-03-28] MEDS: Nitrofurantoin Monohyd/M-Cryst 100 MG CAPSULE PO (01:58)
[2024-03-28 02:03] VITALS: BP 107/66; PULSE 77; RESP 16; O2SAT 99
[2024-03-28 02:06] VITALS: BP 107/66; PULSE 77; RESP 16; TEMP 36.5; O2SAT 99
[2024-03-28 11:32] LABS: Bacterial Vaginosis PCR POSITIVE (Negative); Candida Group PCR DETECTED (Not Detect); Candida glab krusei PCR NOT DETECTED (Not Detect); Trichomonas vaginalis PCR NOT DETECTED (Not Detect)
[2024-03-28 12:07] LABS: CT PCR NOT DETECTED (Not Detect.); NG PCR NOT DETECTED (Not Detect.)
== END 2024-03-28 02:07 | disposition home or self-care (01) ==
PROVIDERS: Emergency Provider Emergency Medicine
DX: N30.01 Acute cystitis with hematuria (principal); N89.8 Other specified noninflammatory disorders of vagina; R30.0 Dysuria; R35.0 Frequency of micturition; R39.15 Urgency of urination; Z79.899 Other long term (current) drug therapy
CPT/HCPCS: 0352U; 81001; 81025; 87086; 87088; 87186; 87491; 87591; 99283; 99284

== ENCOUNTER 2024-04-23 15:45 | Emergency (ER) | payer MEDICAID, SELFPAY ==
--- NOTE | ~2024-04-23 | XR_ITS ---
EXAMINATION: XR ANKLE, RIGHT CLINICAL INFORMATION: Injury COMPARISON: None available. TECHNIQUE: AP, lateral, and mortise views of the right ankle. FINDINGS: Nondisplaced fracture at the base of the fifth metatarsal, this is commonly an avulsion fracture. Ankle mortise is preserved. Talar dome is intact. Medial and lateral malleoli are normal. XR/XR ankle RT min 3V IMPRESSION: Nondisplaced avulsion FRACTURE at the base of the fifth metatarsal.
[2024-04-23 15:56] VITALS: BP 102/64; PULSE 109; RESP 18; TEMP 36.5; O2SAT 98; BMI 26.3
--- NOTE | 2024-04-23 16:42 | ED_ITS ---
HPI - Extremity Injury (Lower) General Chief Complaint: Extremity Injury, Lower Stated Complaint: right ankle inj Time Seen by Provider: 04/23/24 16:02 Source: patient and RN notes reviewed Mode of arrival: ambulatory Limitations: no limitations History of Present Illness ED Provider: Brittanie Landeros PA-C HPI Narrative: This is a 23-year-old female who presents emergency department with complaints of right foot pain status post inversion injury. Patient states that she was going down steps at a friend's house when she accidentally inverted her right ankle. She states that she twisted her ankle and heard a crack. She states that she immediately had pain in her left foot. She has been unable to fully bear weight her right foot secondary to pain. She states that she has sprained her ankle in the past however states that her pain has never been this severe before. Denies taking any medications at home to treat her current symptoms. No other complaints or concerns at this time. MD complaint: foot injury Type of Injury: inversion Place: street/outdoors Severity: moderate Relieving factors: cold therapy, immobilization and rest Exacerbating factors: weight bearing, movement and palpation Context: fall Associated symptoms: snap/pop sensation and swelling Other symptoms: none Treatments prior to arrival: cold therapy Related Data Home Medications ?Medication ?Instructions ?Recorded ?Confirmed etonogestrel 68 mg subdermal subdermal 06/19/21 08/13/23 implant (Nexplanon) levonorgestrel 21 mcg/24 hr (up to intrauterine 08/13/23 08/13/23 8 years) 52 mg intrauterine device (Mirena) Previous Rx's ?Medication ?Instructions ?Recorded nitrofurantoin 100 mg PO BID 7 days #13 caps 03/28/24 monohydrate/macrocrystals 100 mg capsule (Macrobid) acetaminophen 500 mg tablet 1,000 mg (2 x 500 mg) PO QID PRN 04/23/24 (Tylenol Extra Strength) pain #30 tabs Allergies Allergy/AdvReac Type Severity Reaction Status Date / Time ibuprofen [From MOTRIN] Allergy Unknown SWELLING Verified 04/23/24 15:58 Review of Systems Review of Systems: Yes all other systems are reviewed and are negative Constitutional: Constitutional: Reports as per [facility] Past Medical History Attestation statement: The following information was validated with the patient. Medical History Breakthrough bleeding on Nexplanon Family History Family History Paternal Grandmother Breast cancer Social History Social History Alcohol intake: never Patient Tobacco Use Status: Never used Tobacco Smoked in Last 30 Days: No Substance Use Type: Marijuana Advance Directives: No Advance Directives Information Provided: No Do you have a plan to hurt others: No Plan Patient : No Gender identity: Female Physical Exam Vital Signs: Vital Signs: Last Vital Signs Temp 97.8 F 04/23/24 17:53 Pulse 68 04/23/24 17:53 Resp 18 04/23/24 17:53 BP 118/66 04/23/24 17:53 Pulse Ox 100 04/23/24 17:53 O2 Del Method Room Air 04/23/24 17:53 BMI result Body Mass Index 26.3 Const: General: cooperative, comfortable and no acute distress Orientation/consciousness: patient oriented x3 Limitations: no limitations HEENT: Head: Yes normal to inspection, Yes normocephalic and Yes atraumatic Ears: hearing grossly normal bilaterally General nose exam: Normal external nose present Face and sinus: Yes normal facial exam Mouth: Normal oral and palatal mucosa present, oropharynx normal and moist mucous membranes Throat: Yes posterior oropharynx normal Eyes: General: appearance normal, both eyes and all related structures Eyelids: Yes eyelids normal Conjunctivae: conjunctivae normal Sclerae: sclerae normal Pupils: Equal, round and reactive pupils present EOM: EOMs intact bilaterally Neck: Neck: Yes normal visual inspection, Yes full ROM and Yes no lymphadenopathy Lymphatic: no lymphadenopathy noted Chest: Chest palpation & inspection: normal inspection of the chest Resp: Effort & Inspection: normal respiratory effort and able to speak in complete sentences Auscultation: clear to auscultation bilaterally, no crackles, no rales, no rhonchi and no wheezes Cardio: Rate: regular rate Rhythm: regular rhythm Heart sounds: S1 normal heart sound present and S2 normal heart sound present GI: Inspection: Yes normal to inspection Skin: General skin exam: no rashes or lesions noted Trauma: no lacerations or abrasions Wounds: no wounds Neuro: General: patient oriented x3 and moves all extremities Cranial nerves: Yes Equal, round and reactive pupils present Extrem: Other: Dorsum of the right foot, with ecchymosis seen, patient has tenderness palpation along the right 5th metatarsal region. Able to plantar and dorsiflex, pain with eversion and inversion of the right ankle. Malleoli are nontender. Strong DP pulse. Sensation intact General: Yes normal to inspection Right upper extremity: normal to inspection Left upper extremity: normal to inspection Right lower extremity: normal to inspection Left lower extremity: normal to inspection Medications Administered Discontinued Medications Generic Name Dose Route Start Last Admin Trade Name Freq PRN Reason Stop Dose Admin Acetaminophen 975 mg 04/23/24 16:42 04/23/24 16:59 Acetaminophen 325 Mg Tablet PO 04/23/24 16:43 975 mg ONCE ONE Administration Medical Decision Making Medical Decision Making MDM Narrative: This is a 23-year-old female who presents emergency department with complaints of right foot pain. On arrival, vital signs within normal limits. She has tenderness palpation along the right metatarsal. Strong DP pulse. Differential diagnoses include fracture, contusion, sprain, strain. X-ray revealing nondisplaced avulsion fracture of the base of the left 5th metatarsal. This is in zone 1, patient placed in short walking boot, and given crutches. Given orthopedic follow-up. Discharged on Tylenol as she has an allergy to ibuprofen. Given strict return precautions. She understands and agrees with plan. Patient stable for discharge. Differential Diagnosis Differential Diagnoses: The differential diagnosis associated with the presentation includes See above Radiology Impression Discussion of test interpretation with radiology: I have reviewed the radiologist's reading. Radiologist Impression: EXAMINATION: XR ANKLE, RIGHT CLINICAL INFORMATION: Injury COMPARISON: None available. TECHNIQUE: AP, lateral, and mortise views of the right ankle. FINDINGS: Nondisplaced fracture at the base of the fifth metatarsal, this is commonly an avulsion fracture. Ankle mortise is preserved. Talar dome is intact. Medial and lateral malleoli are normal. XR/XR ankle RT min 3V IMPRESSION: Nondisplaced avulsion FRACTURE at the base of the fifth metatarsal. Discharge Plan Discharge Clinical Impression: Metatarsal fracture Patient Disposition: Home, Self-Care Instructions: Foot Fracture in Adults (ED) Additional Instructions: You were seen in the emergency department after injuring your right foot. You fractured your right foot. Please keep your foot in the walking boot. Please use crutches. Keep foot in the walking boot until you see orthopedics for further recommendations. Alternate between ibuprofen and Tylenol as needed for pain and symptoms. Rest, ice, elevate. Follow-up with the orthopedic team, call on Thursday to make an appointment. If any new or worsening symptoms occur including but not limited to changes in color to your foot, worsening pain, please return for re-evaluation. Prescriptions: New acetaminophen [Tylenol Extra Strength] 500 mg tablet 1,000 mg PO QID PRN (Reason: pain) Qty: 30 0RF No Action nitrofurantoin monohyd/m-cryst [Macrobid] 100 mg capsule 100 mg PO BID 7 Days Qty: 13 0RF Rx Instructions: must administer with a meal/food Nexplanon 68 mg implant subdermal Mirena 21 mcg/24 hours (8 yrs) 52 mg intrauterine device intrauterine Referrals: [facility] [place] Orthopedic Surgeons [Provider Group] Interventions: ED Discharge Assessment Last Done: 04/23/24 17:53 Discharge Date/Time: 04/23/24 17:54 Print Language: Syriac
[2024-04-23] MEDS: Acetaminophen 325 MG TABLET 975 MG PO (16:59)
[2024-04-23 17:15] VITALS: BP 102/64; PULSE 109; RESP 18; TEMP 36.5; O2SAT 98
[2024-04-23 17:47] VITALS: BP 118/66; PULSE 68; RESP 18; TEMP 36.6; O2SAT 100
[2024-04-23 17:53] VITALS: BP 118/66; PULSE 68; RESP 18; TEMP 36.6; O2SAT 100
== END 2024-04-23 17:54 | disposition home or self-care (01) ==
PROVIDERS: Emergency Provider Emergency Medicine
DX: S92.354A Nondisplaced fracture of fifth metatarsal bone, right foot, initial encounter for closed fracture (principal); W10.8XXA Fall (on) (from) other stairs and steps, initial encounter; Y93.89 Activity, other specified; Y92.008 Other place in unspecified non-institutional (private) residence as the place of occurrence of the external cause; Y99.9 Unspecified external cause status
CPT/HCPCS: 73610; 99283; 99284

== ENCOUNTER 2024-05-13 13:05 | Outpatient (REF) | payer MEDICAID, SELFPAY ==
--- NOTE | ~2024-05-13 | XR_ITS ---
EXAMINATION: XR FOOT, RIGHT CLINICAL INFORMATION: Right foot fracture. COMPARISON: Most recent right ankle radiograph dated 04/23/2024. TECHNIQUE: AP, lateral, and oblique views of the right foot. FINDINGS: Nondisplaced fracture through the base of the fifth metatarsal in unchanged anatomic alignment. There appears to be persistence of the fracture line without significant new bone/callus formation. No additional fracture. No dislocation. No joint space narrowing marginal osteophytes. No osseous erosion. No abnormal soft tissue calcification. XR/XR foot RT min 3V IMPRESSION: Nondisplaced fracture through the base of the fifth metatarsal in unchanged anatomic alignment. Electronically signed by: Anderson Dobbins MD 05/19/2024 02:15 PM EDT
== END 2024-05-13 13:06 | disposition home or self-care (01) ==
LOC: HO.XRAY 13:05
PROVIDERS: Visit Provider Physician Assistant
DX: S92.351A Displaced fracture of fifth metatarsal bone, right foot, initial encounter for closed fracture (principal)
CPT/HCPCS: 73630; 99212

== ENCOUNTER 2024-05-13 13:47 | Outpatient (AMB) | payer MEDICAID, SELFPAY ==
[2024-05-13 13:51] VITALS: BMI 26.3
--- NOTE | 2024-05-13 13:51 | A.OFFVIS_ITS ---
Vital Signs 05/13/24 13:51 Height 5 ft 1 in Weight 139 lb BMI 26.3 Intake Visit Reasons: ED f/u avulsion fx at the base 5th metatarsal Intake Note: Diaz roque 23 year old female who presents today for an ER follow up of right 5th metatarsal fracture, DOI 04/22/24. Patient reports that she was going down steps when she twisted her ankle and heard a crack. She presented to [facility] ER the following day where xrays were taken and placed in a walking boot. Currently she does not have pain, states some soreness. Denies numbness or tingling. She continues to wear boot as instructed. Allergies ibuprofen [From MOTRIN] Allergy (Unknown, Verified 05/13/24 14:00) SWELLING HPI HPI ED f/u avulsion fx at the base 5th metatarsal: Details: 23-year-old female who presents to the office today for an ER follow-up of right 5th metatarsal injury, 04/22/24. She reports she was going downstairs when she twisted her ankle and heard a crack. She was seen at ER the following day where x-rays were performed and she was placed in a walking boot. She currently states she has no pain, numbness, or tingling however she does have some soreness in her foot. She continues to wear her boot as instructed. 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 [facility] Medical History Breakthrough bleeding on Nexplanon Family History Paternal Grandmother Breast cancer Social History (Updated 05/13/24 @ 13:57 by Catarina Horne [facility]) Alcohol intake: never Patient Tobacco Use Status: Never used Tobacco Substance Use Type: Marijuana Current occupational status: unemployed Gender identity: Female Female Reproductive History Menstrual Age of Menarche: 10 Review of Systems Const All systems reviewed & are unremarkable except as noted in HPI and below Physical Exam Vital Signs: BMI result Body Mass Index 26.3 Const General: cooperative, healthy appearing, comfortable, no acute distress, well developed and alert Orientation/consciousness: patient oriented x3 HEENT Head: Yes normal to inspection, Yes normocephalic and Yes atraumatic Eyes General: appearance normal, both eyes and all related structures Resp Effort & Inspection: normal respiratory effort and able to speak in complete sentences Cardio Rate: regular rate Peripheral pulses: Peripheral pulses 2+ throughout GI Palpation (GI): Soft to palpation Skin Lesions: no lesions Rashes: no rashes Neuro General: patient oriented x3 Extrem Other: Right foot: Skin intact.? There is some bruising of the lateral edge of the left foot.? There is tenderness at the base of the 5th metatarsal. Sensation intact.? EHL intact.? No pain along the mediolateral malleolus.? Neurovascularly intact. Office Procedures Fracture Care Fracture Billing Code: Fracture Billing Code Results Reviewed Results Reviewed: xrays of the right foot obtained today show stable avulsion fracture through base of the 5th metatarsal Assessment & Plan Assessment & Plan (1) Fracture of fifth metatarsal bone: Code(s): S92.353A - Displaced fracture of fifth metatarsal bone, unspecified foot, initial encounter for closed fracture Category: Medical Qualifiers: Encounter type: initial encounter Fracture type: closed Laterality: right Plan She will continue with the boot as tolerated. She can transition to a regular street shoe based on her symptoms. She will continue working without limitations. I did explain that she may need to take anti-inflammatories before and after work to help with inflammation. She may also need to ice and elevate and may have intermittent flareups for the next 6-8 weeks which she understands as it is the healing process. If symptoms persist or worsen, patient will contact the office, otherwise follow-up as needed. Orders: Orders XR foot LT min 3V Today M79.672 - Pain in left foot XR foot RT min 3V Today S92.351A - Displaced fracture of fifth metatarsal bone, right foot, initial encounter for closed fracture Patient Instructions: Scribed for Marianna Acuna PA-C, by Song Ordoñez medical records custodian, on 05/13/2024 at 1:15 PM EST.? I, Marianna Acuna PA-C, have personally reviewed and agree with the information entered by the scribe. Coding Level of Care Code New Pt Level 3 (59603) Complex EM visit Add On G2211 Diagnoses Fracture of fifth metatarsal bone S92.353A Encounter type: initial encounter Fracture type: closed Laterality: right CPT Codes Fracture Care - Fracture Billing Code: Fracture Billing Code ([id number])
== END 2024-05-13 14:32 | disposition home or self-care (01) ==
LOC: HO.HOS 13:47
PROVIDERS: Visit Provider Physician Assistant
DX: S92.351A Displaced fracture of fifth metatarsal bone, right foot, initial encounter for closed fracture (principal)
CPT/HCPCS: 99203

== ENCOUNTER 2024-07-07 17:54 | Outpatient (REF) | payer MEDICAID, SELFPAY ==
[2024-07-08 10:27] LABS: HPV 16,18/45 See PAP report
[2024-07-18 05:33] LABS: C. trachomatis RNA TMA Not Detected (Not Detected); N. gonorrhoeae RNA TMA Not Detected (Not Detected); Trichomonas (NAAT) Not Detected (Not Detected)
== END 2024-07-07 17:55 | disposition home or self-care (01) ==
LOC: HO.HHCLNP 17:54
PROVIDERS: Visit Provider Advanced Practice Midwife
DX: Z12.4 Encounter for screening for malignant neoplasm of cervix (principal); Z11.3 Encounter for screening for infections with a predominantly sexual mode of transmission
CPT/HCPCS: 36415; 87491; 87591; 87624; 87661; 88175

== ENCOUNTER 2025-01-04 00:25 | Emergency (ER) | payer MEDICAID, SELFPAY ==
[2025-01-04 00:29] VITALS: BP 130/68; PULSE 72; O2SAT 94
[2025-01-04 00:32] VITALS: BP 105/55; PULSE 71; RESP 18; TEMP 36.8; O2SAT 99; BMI 26.4
[2025-01-04 00:48] LABS: MANUAL DIFF FLAG NO
[2025-01-04 00:49] LABS: Basophils Percent Auto 0.3 % (0-2); Eosinophils Absolute Auto 0.1 X10*3/uL (0.0-0.4); Hematocrit 35.7 % (37.0-47.0); Imm Gran Abs Auto 0.01 X10*3/uL (0.00-0.03); Imm Gran Pct Auto 0.1 % (0.0-0.4); Lymphocytes Absolute Auto 3.8 X10*3/uL (1.2-4.9); Lymphocytes Percent Auto 36.3 % (20-40); Mean Corpuscular HGB Conc 33.6 g/dl (31.0-35.0); Mean Corpuscular Hemoglobin 28.8 pg (27.0-33.0); Mean Corpuscular Volume 85.8 fL (80.0-98.0); Mean Platelet Volume 10.8 fL (9.4-12.3); Monocytes Absolute Auto 0.7 X10*3/uL (0.1-1.2); Monocytes Percent Auto 6.2 % (2-11); Neutrophils Absolute Auto 5.9 x10*3/uL (2.0-8.3); Neutrophils Percent Auto 56.1 % (45-73); Platelet Count 202 X10*3/uL (160-400); Red Blood Count 4.16 X10*6/uL (4.20-5.50); Red Cell Distribution Width 12.8 % (11.0-16.0); White Blood Count 10.5 X10*3/uL (4.8-10.8)
[2025-01-04 01:20] LABS: Alanine Aminotransferase 14 U/L (0-31); Albumin Level 4.2 g/dL (3.5-5.0); Alkaline Phosphatase 44 U/L (39-117); Anion Gap 11 (12-20); Aspartate Amino Transferase 17 U/L (5-31); Bilirubin Total 0.2 mg/dL (0.0-1.0); Blood Urea Nitrogen 14 mg/dL (9-16); Calcium 8.8 mg/dL (8.4-10.2); Carbon Dioxide 24 mmol/L (22-29); Chloride 108 mmol/L (96-108); Creatinine Clr Calc Pharmacy 94.1; Estimated Glomerular Filt Rate > 60; Glucose Random 93 mg/dL (60-115); Potassium 3.3 mmol/L (3.3-5.1); Sodium 140 mmol/L (135-145); Total Protein 6.5 g/dL (6.5-8.0)
[2025-01-04 01:27] LABS: Lipase 28 U/L (8-78)
[2025-01-04 02:01] LABS: HCG Quantitative < 2 mIU/mL
[2025-01-04 02:55] LABS: Appearance Urine Clear; Color Urine Yellow; Glucose Urine UA Negative (Negative); Leukocyte Esterase Urine Negative (Negative); Nitrite Urine Negative (Negative); PH 5.5 (5.0-9.0); Specific Gravity - Urine >= 1.030 (1.005-1.025); Urine Blood Negative (Negative); Urine Ketones Trace mg/dL (Negative); Urine Protein Negative (Neg-Trace)
[2025-01-04 03:09] LABS: Bacteria Urine None Seen (None Seen); Hyaline Casts Urine 0-2 /LPF (0-2); RBC Urine 0-2 /HPF (0-2); Squamous Epithelial Cell Urine 0-2 /HPF (0-2); WBC Urine 0-5 /HPF (0-5)
--- NOTE | 2025-01-04 03:35 | ED_ITS ---
HPI - Abdominal Pain General Chief Complaint: Abdominal Pain Stated Complaint: ABDOMINAL PAIN Time Seen by Provider: 01/04/25 03:34 Source: patient Mode of arrival: ambulatory Limitations: no limitations History of Present Illness ED Provider: Dr. Marcelino Red HPI narrative: 24-year-old female who presents emergency department for evaluation of abdominal pain. I went into the room to see her and she was frustrated that she had waited 4 hours and was told that she was going to be seen multiple times and still had to wait. I told the patient that I am in the room and I can talk to her and evaluate her however she refused and wants to leave without completing treatment. Related Data Home Medications ?Medication ?Instructions ?Recorded ?Confirmed levonorgestrel 21 mcg/24 hr (up to intrauterine 08/13/23 08/13/23 8 years) 52 mg intrauterine device (Mirena) Previous Rx's ?Medication ?Instructions ?Recorded nitrofurantoin 100 mg PO BID 7 days #13 caps 03/28/24 monohydrate/macrocrystals 100 mg capsule (Macrobid) acetaminophen 500 mg tablet 1,000 mg (2 x 500 mg) PO QID PRN 04/23/24 (Tylenol Extra Strength) pain #30 tabs Allergies Allergy/AdvReac Type Severity Reaction Status Date / Time No Known Allergies Allergy Verified 01/04/25 00:34 [facility] Past Medical History Medical History Breakthrough bleeding on Nexplanon Family History Family History Paternal Grandmother Breast cancer Social History Social History (Updated 05/13/24 @ 13:57 by Catarina Horne [facility]) Alcohol intake: never Patient Tobacco Use Status: Never used Tobacco Substance Use Type: Marijuana Advance Directives: No Advance Directives Information Provided: Yes Do you have a plan to hurt others: No Plan Current occupational status: unemployed Gender identity: Female Physical Exam ED Vital Signs: Vital Signs - 24 hr 01/04/25 00:32 Temperature 98.2 F Pulse Rate 71 Respiratory Rate 18 Blood Pressure 105/55 L Pulse Oximetry 99 Oxygen Delivery Method Room Air BMI result Body Mass Index 26.4 Medical Decision Making Lab Data 01/04/25 00:45 01/04/25 00:45 Labs: Lab Results 01/04/25 01/04/25 Range/Units 00:45 02:48 WBC 10.5 (4.8-10.8) X10*3/uL RBC 4.16 L (4.20-5.50) X10*6/uL Hgb 12.0 (12.0-16.0) g/dl Hct 35.7 L (37.0-47.0) % MCV 85.8 (80.0-98.0) fL MCH 28.8 (27.0-33.0) pg MCHC 33.6 (31.0-35.0) g/dl RDW 12.8 (11.0-16.0) % Plt Count 202 D (160-400) X10*3/uL MPV 10.8 (9.4-12.3) fL Immature Gran % (Auto) 0.1 (0.0-0.4) % Neut % (Auto) 56.1 (45-73) % Lymph % (Auto) 36.3 (20-40) % [place] % (Auto) 6.2 (2-11) % Eos % (Auto) 1.0 (0-4) % Baso % (Auto) 0.3 (0-2) % Lymph # (Auto) 3.8 (1.2-4.9) X10*3/uL [place] # (Auto) 0.7 (0.1-1.2) X10*3/uL Eos # (Auto) 0.1 (0.0-0.4) X10*3/uL Baso # (Auto) 0.0 (0.0-0.2) X10*3/uL Abs Immat Gran (auto) 0.01 (0.00-0.03) X10*3/uL Absolute Neuts (auto) 5.9 (2.0-8.3) x10*3/uL Absolute Nucleated RBC 0.000 (0.0-0.012) X10*3/uL Nucleated RBC % (auto) 0.0 (0.0-0.2) /100WBC Sodium 140 (135-145) mmol/L Potassium 3.3 (3.3-5.1) mmol/L Chloride 108 (96-108) mmol/L Carbon Dioxide 24 (22-29) mmol/L Anion Gap 11 L (12-20) BUN 14 (9-16) mg/dL Creatinine 0.78 (0.5-1.4) mg/dL Estim Creat Clear Calc 94.1 Estimated GFR > 60 Random Glucose 93 (60-115) mg/dL Calcium 8.8 D (8.4-10.2) mg/dL Total Bilirubin 0.2 (0.0-1.0) mg/dL AST 17 (5-31) U/L ALT 14 (0-31) U/L Alkaline Phosphatase 44 (39-117) U/L Total Protein 6.5 (6.5-8.0) g/dL Albumin 4.2 (3.5-5.0) g/dL Lipase 28 (8-78) U/L Beta HCG, Quant < 2 mIU/mL Urine Color Yellow Urine Appearance Clear Urine pH 5.5 (5.0-9.0) Ur Specific [place] >= 1.030 H (1.005-1.025) Urine Protein Negative (Neg-Trace) mg/dL Urine Glucose (UA) Negative (Negative) mg/dL Urine Ketones Trace (Negative) mg/dL Urine Blood Negative (Negative) Urine Nitrite Negative (Negative) Ur Leukocyte Esterase Negative (Negative) Urine RBC 0-2 (0-2) /HPF Urine WBC 0-5 (0-5) /HPF Ur Squamous Epith Cells 0-2 (0-2) /HPF Urine Bacteria None Seen (None Seen) Hyaline Casts 0-2 (0-2) /LPF Discharge Plan Discharge Clinical Impression: Abdominal pain Patient Disposition: Left W/O Completing Treatment Prescriptions: No Action nitrofurantoin monohyd/m-cryst [Macrobid] 100 mg capsule 100 mg PO BID 7 Days Qty: 13 0RF Rx Instructions: must administer with a meal/food acetaminophen [Tylenol Extra Strength] 500 mg tablet 1,000 mg PO QID PRN (Reason: pain) Qty: 30 0RF Mirena 21 mcg/24 hours (8 yrs) 52 mg intrauterine device intrauterine Print Language: Greek
--- NOTE | 2025-01-04 04:19 | PC.NURSE ---
pt requesting to leave at this time does not wish to wait any longer to be seen by provider. this RN explained that the doctor had just signed up and will be right in, MD álvarez even went in room to see patient in the moment and pt denied. says she would just rather go home. iv removed and pt ambulated with a steady gait out of tx room.
== END 2025-01-04 04:21 | disposition left against medical advice (07) ==
PROVIDERS: Emergency Provider Emergency Medicine Emergency Medical Services; PCP Student in an Organized Health Care Education/Training Program
DX: R10.9 Unspecified abdominal pain (principal)
CPT/HCPCS: 36415; 80053; 81001; 83690; 84702; 85025; 99283; 99284

== ENCOUNTER 2025-01-10 22:56 | Emergency (ER) | payer MEDICAID, SELFPAY ==
[2025-01-10 22:59] VITALS: BP 136/90; PULSE 51; O2SAT 98
[2025-01-10 23:05] VITALS: BP 116/76; PULSE 49; RESP 22; TEMP 36.7; O2SAT 100; BMI 24.4
[2025-01-10 23:33] LABS: MANUAL DIFF FLAG NO
[2025-01-10 23:35] LABS: Basophils Percent Auto 0.2 % (0-2); Eosinophils Absolute Auto 0.1 X10*3/uL (0.0-0.4); Hematocrit 37.4 % (37.0-47.0); Hemoglobin 12.7 g/dl (12.0-16.0); Imm Gran Abs Auto 0.02 X10*3/uL (0.00-0.03); Imm Gran Pct Auto 0.2 % (0.0-0.4); Lymphocytes Percent Auto 29.8 % (20-40); Mean Corpuscular Hemoglobin 29.1 pg (27.0-33.0); Mean Corpuscular Volume 85.8 fL (80.0-98.0); Mean Platelet Volume 10.7 fL (9.4-12.3); Monocytes Absolute Auto 0.7 X10*3/uL (0.1-1.2); Monocytes Percent Auto 5.1 % (2-11); Neutrophils Absolute Auto 8.5 x10*3/uL (2.0-8.3); Neutrophils Percent Auto 63.7 % (45-73); Platelet Count 246 X10*3/uL (160-400); Red Blood Count 4.36 X10*6/uL (4.20-5.50); Red Cell Distribution Width 12.9 % (11.0-16.0); White Blood Count 13.3 X10*3/uL (4.8-10.8)
[2025-01-10 23:53] LABS: Alanine Aminotransferase 12 U/L (0-31); Albumin Level 4.7 g/dL (3.5-5.0); Alkaline Phosphatase 46 U/L (39-117); Anion Gap 14 (12-20); Aspartate Amino Transferase 21 U/L (5-31); Bilirubin Total 0.2 mg/dL (0.0-1.0); Blood Urea Nitrogen 16 mg/dL (9-16); Calcium 9.2 mg/dL (8.4-10.2); Carbon Dioxide 23 mmol/L (22-29); Chloride 107 mmol/L (96-108); Creatinine Clr Calc Pharmacy 86.2; Estimated Glomerular Filt Rate > 60; Glucose Random 109 mg/dL (60-115); Lipase 25 U/L (8-78); Potassium 4.3 mmol/L (3.3-5.1); Sodium 140 mmol/L (135-145); Total Protein 7.3 g/dL (6.5-8.0)
[2025-01-11 00:09] LABS: HCG Quantitative < 2 mIU/mL
--- NOTE | 2025-01-11 01:40 | ED_ITS ---
HPI - General Adult General Chief complaint: Abdominal Pain Stated complaint: acid reflux Time Seen by Provider: 01/11/25 01:11 Source: patient, RN notes reviewed and old records reviewed Mode of arrival: EMS Limitations: no limitations History of Present Illness ED Provider: Brien SCOTT narrative: 24-year-old female presents for evaluation of upper abdominal pain. Patient describes a burning upper abdominal pain that started a few hours after eating a chicken strep. She has associated nausea without vomiting. She has had similar episodes in the past and she believes it may be ?heartburn. ? Denies any history abdominal surgeries Denies any fevers or chills Denies any other complaints or concerns at this time Related Data Home Medications ?Medication ?Instructions ?Recorded ?Confirmed levonorgestrel 21 mcg/24 hr (up to intrauterine 08/13/23 08/13/23 8 years) 52 mg intrauterine device (Mirena) Previous Rx's ?Medication ?Instructions ?Recorded nitrofurantoin 100 mg PO BID 7 days #13 caps 03/28/24 monohydrate/macrocrystals 100 mg capsule (Macrobid) acetaminophen 500 mg tablet 1,000 mg (2 x 500 mg) PO QID PRN 04/23/24 (Tylenol Extra Strength) pain #30 tabs omeprazole 20 mg tablet,delayed 20 mg PO DAILY #14 tabs 01/11/25 release ondansetron 4 mg disintegrating 4 mg PO Q8H PRN nausea and 01/11/25 tablet vomiting #20 tabs Allergies Allergy/AdvReac Type Severity Reaction Status Date / Time No Known Allergies Allergy Verified 01/10/25 23:07 Review of Systems 2 Constitutional: Constitutional: Denies body ache(s), Denies chills and Denies fever(s) ENT: Denies vertigo and Denies dizziness Cardiovascular: Cardiovascular: Denies chest pain Respiratory: Respiratory: Denies chest congestion and Denies cough Gastrointestinal: Gastrointestinal: Reports abdominal pain, Denies hematochezia, Denies diarrhea, Denies loose stools, Reports nausea and Denies vomiting Musculoskeletal: Musculoskeletal: Denies back pain Integumentary/Breasts: Skin/Breast: Denies rash Neurologic: Denies vertigo and Denies dizziness Psychiatric: Psychiatric: Denies anxiety PMFSH Past Medical History Medical History Breakthrough bleeding on Nexplanon Family History Family History Paternal Grandmother Breast cancer Social History Social History (Updated 05/13/24 @ 13:57 by Catarina Horne Adrianna) Alcohol intake: never Patient Tobacco Use Status: Never used Tobacco Substance Use Type: Marijuana Advance Directives: No Advance Directives Information Provided: Yes Current occupational status: unemployed Gender identity: Female Physical Exam ED Vital Signs: Vital Signs - 24 hr 01/10/25 23:05 Temperature 98.0 F Pulse Rate 49 L Respiratory Rate 22 H Blood Pressure 116/76 Pulse Oximetry 100 Oxygen Delivery Method Room Air BMI result Body Mass Index 24.4 Const General: healthy appearing, comfortable, no acute distress, alert and awake Nutritional Appearance: well nourished Orientation/consciousness: patient oriented x3 HENMT Head: Yes normocephalic and Yes atraumatic Eyes Eyelids: Yes eyelids normal Conjunctivae: conjunctivae normal Sclerae: sclerae normal Corneas: corneas normal Pupils: Equal, round and reactive pupils present EOM: EOMs intact bilaterally Neck Neck: Yes full ROM Resp Effort & Inspection: normal respiratory effort, able to speak in complete sentences and not labored GI Inspection: No distended Palpation (GI): Soft to palpation, not firm, Tenderness to palpation present (GI) in the epigastrum and in the LUQ; not in the LLQ, not in the RLQ and not in the RUQ, no guarding and not rigid Auscultation: normoactive bowel sounds Skin General skin exam: elasticity normal Neuro General: patient oriented x3 Cranial nerves: Yes Equal, round and reactive pupils present and Yes Bilaterally intact EOM present Cognition (Neuro): normal cognition Extrem Other: Moving all extremities well without any obvious deformities Course Reevaluation(s) Reevaluation #1: Patient reports some improvement after GI cocktail but is still having epigastric pain. She remains nontender right upper quadrant, low suspicion for biliary disease. The patient is comfortable with plan for discharge and follow up with GI. Return precautions were given Time: 02:24 Medications Administered Discontinued Medications Generic Name Dose Route Start Last Admin Trade Name Freq PRN Reason Stop Dose Admin Al Hydroxide/Mg Hydroxide 30 ml 01/11/25 01:31 01/11/25 01:49 Magnesium Hydrox/Alum Hydrox 30 Ml Oral.Susp PO 01/11/25 01:32 30 ml ONCE ONE Administration Lidocaine HCl 15 ml 01/11/25 01:31 01/11/25 01:49 Lidocaine Hcl Viscous 2 % 15 Ml Solution MUCOUS MEM 01/11/25 01:32 15 ml ONCE ONE Administration Ondansetron HCl 4 mg 01/11/25 01:31 01/11/25 01:49 Ondansetron Odt 4 Mg Tab.Rapdis TRANSLINGU 01/11/25 01:32 4 mg ONCE ONE Administration Medical Decision Making Medical Decision Making [facility] Narrative: 24-year-old female with no significant past medical history presents for evaluation of upper abdominal pain after eating. Her pain is described as burning and, in his no middle of her upper abdomen and left upper abdomen. This is less likely biliary disease. She has no right upper quadrant tenderness, she has LFTs within normal limits, less likely biliary obstruction. No lower abdominal pain or tenderness to suggest acute appendicitis. We will treat her symptoms with a GI cocktail Differential Diagnosis Differential Diagnoses: The differential diagnosis associated with the presentation includes Gastritis GERD Acid reflux Biliary disease Gastroenteritis Lab Data [facility] Lab Attestation statement: I reviewed the patient's lab results. Mild leukocytosis to 13.3 which is likely reactive. No significant anemia. Normal platelet count. No electrolyte abnormalities. LFTs within normal limits 01/10/25 23:29 01/10/25 23:29 Labs: Lab Results 01/10/25 Range/Units 23:29 WBC 13.3 H (4.8-10.8) X10*3/uL RBC 4.36 (4.20-5.50) X10*6/uL Hgb 12.7 (12.0-16.0) g/dl Hct 37.4 (37.0-47.0) % MCV 85.8 (80.0-98.0) fL MCH 29.1 (27.0-33.0) pg MCHC 34.0 (31.0-35.0) g/dl RDW 12.9 (11.0-16.0) % Plt Count 246 (160-400) X10*3/uL MPV 10.7 (9.4-12.3) fL Immature Gran % (Auto) 0.2 (0.0-0.4) % Neut % (Auto) 63.7 (45-73) % Lymph % (Auto) 29.8 (20-40) % [place] % (Auto) 5.1 (2-11) % Eos % (Auto) 1.0 (0-4) % Baso % (Auto) 0.2 (0-2) % Lymph # (Auto) 4.0 (1.2-4.9) X10*3/uL [place] # (Auto) 0.7 (0.1-1.2) X10*3/uL Eos # (Auto) 0.1 (0.0-0.4) X10*3/uL Baso # (Auto) 0.0 (0.0-0.2) X10*3/uL Abs Immat Gran (auto) 0.02 (0.00-0.03) X10*3/uL Absolute Neuts (auto) 8.5 H (2.0-8.3) x10*3/uL Absolute Nucleated RBC 0.000 (0.0-0.012) X10*3/uL Nucleated RBC % (auto) 0.0 (0.0-0.2) /100WBC Sodium 140 (135-145) mmol/L Potassium 4.3 D (3.3-5.1) mmol/L Chloride 107 (96-108) mmol/L Carbon Dioxide 23 (22-29) mmol/L Anion Gap 14 (12-20) BUN 16 (9-16) mg/dL Creatinine 0.82 (0.5-1.4) mg/dL Estim Creat Clear Calc 86.2 Estimated GFR > 60 Random Glucose 109 (60-115) mg/dL Calcium 9.2 (8.4-10.2) mg/dL Total Bilirubin 0.2 (0.0-1.0) mg/dL AST 21 (5-31) U/L ALT 12 (0-31) U/L Alkaline Phosphatase 46 (39-117) U/L Total Protein 7.3 (6.5-8.0) g/dL Albumin 4.7 (3.5-5.0) g/dL Lipase 25 (8-78) U/L Beta HCG, Quant < 2 mIU/mL Discharge Plan Discharge Clinical Impression: Abdominal pain Patient Disposition: Home, Self-Care Instructions: GERD (Gastroesophageal Reflux Disease) (ED), Abdominal Pain (ED) Additional Instructions: I recommend taking omeprazole daily for the next 2 weeks You should avoid spicy, greasy foods Drink lots of fluids. You may use Zofran as needed for nausea and vomiting. Follow up with GI, Dr. Davis at the number provided Return for new or worsening symptoms Prescriptions: New ondansetron 4 mg tablet,disintegrating 4 mg PO Q8H PRN (Reason: nausea and vomiting) Qty: 20 0RF omeprazole 20 mg tablet,delayed release (DR/EC) 20 mg PO DAILY Qty: 14 0RF No Action nitrofurantoin monohyd/m-cryst [Macrobid] 100 mg capsule 100 mg PO BID 7 Days Qty: 13 0RF Rx Instructions: must administer with a meal/food acetaminophen [Tylenol Extra Strength] 500 mg tablet 1,000 mg PO QID PRN (Reason: pain) Qty: 30 0RF Mirena 21 mcg/24 hours (8 yrs) 52 mg intrauterine device intrauterine Referrals: Ivett Davis MD [Physician] - (upper abdominal pain) Print Language: Guamanian
[2025-01-11] MEDS: Magnesium Hydrox/Alum Hydrox 30 ML ORAL.SUSP PO (01:49)
[2025-01-11] MEDS: Ondansetron ODT 4 MG TAB.RAPDIS TRANSLINGU (01:49)
[2025-01-11] MEDS: Lidocaine HCl Viscous 2 % 15 ML SOLUTION MUCOUS MEM (01:49)
[2025-01-11 03:08] VITALS: BP 102/63; PULSE 63; RESP 18; TEMP 36.8; O2SAT 100
[2025-01-11 03:32] VITALS: BP 102/63; PULSE 63; RESP 18; TEMP 36.8; O2SAT 100
== END 2025-01-11 03:33 | disposition home or self-care (01) ==
PROVIDERS: Emergency Medicine; Emergency Provider Emergency Medicine
DX: K21.9 Gastro-esophageal reflux disease without esophagitis (principal); R11.0 Nausea; R10.11 Right upper quadrant pain; R10.13 Epigastric pain; Z79.899 Other long term (current) drug therapy
CPT/HCPCS: 36415; 80053; 83690; 84702; 85025; 99283

== ENCOUNTER 2025-01-16 05:03 | Emergency (ER) | payer MEDICAID, SELFPAY ==
[2025-01-16 05:10] VITALS: BP 104/71; BP 118/72; PULSE 62; PULSE 64; RESP 18; TEMP 36.9; O2SAT 100; O2SAT 99; BMI 22.8
--- OUTSIDE RECORDS SUMMARY | 2025-01-16 05:13 | XMS_ITS | Encounter Summary ---
Author Organization [employer] Address [address] [place] [address] Care Team Providers Care Electrolysis Investigator Name Role Phone Cora Jimenez MD Primary Care Pro vider Encounter Details Date Type Department Care Team (Late st Contact Info) Description 06/10/2023 Abstract [facility] [address] [place], [place] [id number] Swati Villalpando Social History Tobacco Use Types Packs/Day Years Used Date Smoking Tobacco: Never Assessed Comments Unknown Sex and Gender Information Value Date Recorded Sex Assigned at Female 07/07/2022 10:18 AM EDT Legal Sex Female 10:18 AM EDT Gender Identity Female 07/07/2022 10:18 AM EDT Sexual Orientation Straight 07/07/2022 10 :18 AM EDT documented as of this encounter Plan of Treatment Upcoming Encounters Date Type Department Care Team (Late st Contact Info) Description 06/05/2025 3:00 PM EDT Office Visit [facility] [address] [place] [address] Vikram Hood documented as of this encounter Procedures Procedure Name Priority Date/Time Associated Diagnosis Comments PAP/HPV Routine 06/19/2021 documented in this encounter Results * Hm Pap Smear (06/19/2021) Pap Negative for intraephithelial lesion or malignancy Negative for intraephithelial lesion or malignancy, Other Historical Provider HEALTH MAINTENANCE Final Result documented in this encounter Visit Diagnoses Not on filedocumented in this encounter Care Teams Electrolysis Investigator Relationship Specialty Start Date End Date Cora Jimenez MD [address] [place] [id number] PCP - General Internal Medicine 07/17/23 documented as of this encounter
--- NOTE | 2025-01-16 05:44 | PC.NURSE ---
pt biba from home, a&ox4, respirations even and unlabored. pt reports waking up with sudden onset of epigastric pain with some intermittent nausea. pt reports being seen at 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 pt reports some intermittent right flank pain, denies any urinary symptoms. vss.
[2025-01-16 06:11] LABS: MANUAL DIFF FLAG NO
[2025-01-16 06:13] LABS: Basophils Percent Auto 0.1 % (0-2); Eosinophils Absolute Auto 0.1 X10*3/uL (0.0-0.4); Eosinophils Percent Auto 1.2 % (0-4); Hematocrit 34.7 % (37.0-47.0); Hemoglobin 11.7 g/dl (12.0-16.0); Imm Gran Abs Auto 0.01 X10*3/uL (0.00-0.03); Imm Gran Pct Auto 0.1 % (0.0-0.4); Lymphocytes Absolute Auto 2.7 X10*3/uL (1.2-4.9); Lymphocytes Percent Auto 36.7 % (20-40); Mean Corpuscular HGB Conc 33.7 g/dl (31.0-35.0); Mean Corpuscular Hemoglobin 28.8 pg (27.0-33.0); Mean Corpuscular Volume 85.5 fL (80.0-98.0); Mean Platelet Volume 10.7 fL (9.4-12.3); Monocytes Absolute Auto 0.6 X10*3/uL (0.1-1.2); Monocytes Percent Auto 7.9 % (2-11); Platelet Count 224 X10*3/uL (160-400); Red Blood Count 4.06 X10*6/uL (4.20-5.50); Red Cell Distribution Width 12.6 % (11.0-16.0); White Blood Count 7.4 X10*3/uL (4.8-10.8)
[2025-01-16 06:22] LABS: Appearance Urine Clear; Color Urine Yellow; Glucose Urine UA Negative (Negative); Leukocyte Esterase Urine Negative (Negative); Nitrite Urine Negative (Negative); PH 5.5 (5.0-9.0); Specific Gravity - Urine 1.025 (1.005-1.025); Urine Blood Negative (Negative); Urine Ketones 40 mg/dL (Negative); Urine Protein Trace mg/dL (Neg-Trace)
[2025-01-16 06:27] LABS: Bacteria Urine None Seen (None Seen); Hyaline Casts Urine 0-2 /LPF (0-2); RBC Urine 0-2 /HPF (0-2); Squamous Epithelial Cell Urine 0-2 /HPF (0-2); WBC Urine 0-5 /HPF (0-5)
[2025-01-16 06:27] LABS: Alanine Aminotransferase 17 U/L (0-31); Albumin Level 4.3 g/dL (3.5-5.0); Alkaline Phosphatase 42 U/L (39-117); Anion Gap 11 (12-20); Aspartate Amino Transferase 20 U/L (5-31); Bilirubin Total 0.5 mg/dL (0.0-1.0); Blood Urea Nitrogen 11 mg/dL (9-16); Calcium 9.1 mg/dL (8.4-10.2); Carbon Dioxide 24 mmol/L (22-29); Chloride 107 mmol/L (96-108); Creatinine Clr Calc Pharmacy 104.6; Estimated Glomerular Filt Rate > 60; Glucose Random 85 mg/dL (60-115); Lipase 18 U/L (8-78); Magnesium 1.8 mg/dL (1.6-2.6); Potassium 3.4 mmol/L (3.3-5.1); Sodium 139 mmol/L (135-145); Total Protein 6.5 g/dL (6.5-8.0)
[2025-01-16 07:49] VITALS: BP 114/72; PULSE 60; RESP 12; TEMP 36.2; O2SAT 99
[2025-01-16 08:24] LABS: UPreg QC Valid YES; Urine Pregnancy NEGATIVE (NEGATIVE)
--- NOTE | 2025-01-16 08:40 | ED_ITS ---
HPI - Abdominal Pain General Chief Complaint: Abdominal Pain Stated Complaint: LT FLANK PAIN Time Seen by Provider: 01/16/25 07:03 History of Present Illness HPI narrative: Patient is a 24-year-old female presents today with having epigastric pain on an aunt. It is burning in nature. Worse at night. Worse with certain position. Patient was supposed to take omeprazole but did not pickling grader her prescription yet. There is no fever no chills. There is no diaphoresis. Does not think she is . There is no change in bowel movement. There is no vomiting. Tolerating p.o.. Patient is from home. Not associated with any specific food. Related Data Home Medications ?Medication ?Instructions ?Recorded ?Confirmed levonorgestrel 21 mcg/24 hr (up to intrauterine 08/13/23 08/13/23 8 years) 52 mg intrauterine device (Mirena) Previous Rx's ?Medication ?Instructions ?Recorded nitrofurantoin 100 mg PO BID 7 days #13 caps 03/28/24 monohydrate/macrocrystals 100 mg capsule (Macrobid) acetaminophen 500 mg tablet 1,000 mg (2 x 500 mg) PO QID PRN 04/23/24 (Tylenol Extra Strength) pain #30 tabs omeprazole 20 mg tablet,delayed 20 mg PO DAILY #14 tabs 01/11/25 release ondansetron 4 mg disintegrating 4 mg PO Q8H PRN nausea and 01/11/25 tablet vomiting #20 tabs Allergies Allergy/AdvReac Type Severity Reaction Status Date / Time No Known Allergies Allergy Verified 01/16/25 05:17 Review of Systems Review of Systems Positive epigastric pain Yes all other systems are reviewed and are negative [facility] Past Medical History Attestation statement: The following information was validated with the patient. Medical History Breakthrough bleeding on Nexplanon Family History Family History Paternal Grandmother Breast cancer Social History Social History Alcohol intake: never Patient Tobacco Use Status: Never used Tobacco Smoked in Last 30 Days: No Use of substances other than those prescribed or required for medical reasons: No Substance Use Type: Marijuana Advance Directives: No Advance Directives Information Provided: Yes Do you have a plan to hurt others: No Plan Patient : No Current occupational status: unemployed Gender identity: Female Physical Exam ED Vital Signs: Vital Signs - 24 hr 01/16/25 05:10 01/16/25 07:49 Temperature 98.4 F 97.2 F Pulse Rate 64 60 Respiratory Rate 18 12 Blood Pressure 104/71 114/72 Pulse Oximetry 100 99 Oxygen Delivery Method Room Air Room Air BMI result Body Mass Index 22.8 Appearance: Alert. Oriented X3. No acute distress. Eyes: Pupils equal, round and reactive to light. ENT: Pharynx normal. Neck: Normal inspection. Neck supple. No lymph nodes noted. No crepitus CVS: Normal heart rate and rhythm. Pulses normal. Normal S1 and S2 Respiratory: No respiratory distress. Breath sounds normal. No Wheezing. No rales Abdomen: Soft and nontender. No rigidity. No distention. good BS x4 Skin: Skin warm and dry. Normal skin color. Normal skin turgor. Extremities: No lower extremity edema. Neurovascular intact to all extremities. No Lacerations. No Rash Neuro: Oriented X 3. No motor deficit. No sensory deficit. Moving all extermities. No slurred speech Medical Decision Making Medical Decision Making [facility] Narrative: Patient well-appearing on my arrival the pain has gone away. In no acute distress. Patient's test was negative no evidence for - related issue white count is normal hemoglobin is 11.7 no signs of anemia. Patient's LFTs are normal. No evidence for biliary disease lipase is 18 no evidence for pancreatitis urine showed no signs of infection no blood to suggest there is a kidney stone. The pain is more epigastric in nature. Has gone away. Will have patient pickling grader her omeprazole follow-up on an outpatient basis. No additional medication to be given. Currently in stable condition. Differential Diagnosis Differential Diagnoses: The differential diagnosis associated with the presentation includes Admission/Observation Consideration of admission/observation: Escalation of care including admission/observation considered Lab Data [facility] Lab Attestation statement: I reviewed the patient's lab results. 01/16/25 05:53 01/16/25 05:53 Labs: Lab Results 01/16/25 01/16/25 Range/Units 05:53 06:13 WBC 7.4 (4.8-10.8) X10*3/uL RBC 4.06 L (4.20-5.50) X10*6/uL Hgb 11.7 L (12.0-16.0) g/dl Hct 34.7 L (37.0-47.0) % MCV 85.5 (80.0-98.0) fL MCH 28.8 (27.0-33.0) pg MCHC 33.7 (31.0-35.0) g/dl RDW 12.6 (11.0-16.0) % Plt Count 224 (160-400) X10*3/uL MPV 10.7 (9.4-12.3) fL Immature Gran % (Auto) 0.1 (0.0-0.4) % Neut % (Auto) 54.0 (45-73) % Lymph % (Auto) 36.7 (20-40) % [place] % (Auto) 7.9 (2-11) % Eos % (Auto) 1.2 (0-4) % Baso % (Auto) 0.1 (0-2) % Lymph # (Auto) 2.7 (1.2-4.9) X10*3/uL [place] # (Auto) 0.6 (0.1-1.2) X10*3/uL Eos # (Auto) 0.1 (0.0-0.4) X10*3/uL Baso # (Auto) 0.0 (0.0-0.2) X10*3/uL Abs Immat Gran (auto) 0.01 (0.00-0.03) X10*3/uL Absolute Neuts (auto) 4.0 (2.0-8.3) x10*3/uL Absolute Nucleated RBC 0.000 (0.0-0.012) X10*3/uL Nucleated RBC % (auto) 0.0 (0.0-0.2) /100WBC Sodium 139 (135-145) mmol/L Potassium 3.4 D (3.3-5.1) mmol/L Chloride 107 (96-108) mmol/L Carbon Dioxide 24 (22-29) mmol/L Anion Gap 11 L (12-20) BUN 11 (9-16) mg/dL Creatinine 0.68 (0.5-1.4) mg/dL Estim Creat Clear Calc 104.6 Estimated GFR > 60 Random Glucose 85 (60-115) mg/dL Calcium 9.1 (8.4-10.2) mg/dL Magnesium 1.8 (1.6-2.6) mg/dL Total Bilirubin 0.5 (0.0-1.0) mg/dL AST 20 (5-31) U/L ALT 17 (0-31) U/L Alkaline Phosphatase 42 (39-117) U/L Total Protein 6.5 (6.5-8.0) g/dL Albumin 4.3 (3.5-5.0) g/dL Lipase 18 (8-78) U/L Urine Color Yellow Urine Appearance Clear Urine pH 5.5 (5.0-9.0) Ur Specific [place] 1.025 (1.005-1.025) Urine Protein Trace (Neg-Trace) mg/dL Urine Glucose (UA) Negative (Negative) mg/dL Urine Ketones 40 (Negative) mg/dL Urine Blood Negative (Negative) Urine Nitrite Negative (Negative) Ur Leukocyte Esterase Negative (Negative) Urine RBC 0-2 (0-2) /HPF Urine WBC 0-5 (0-5) /HPF Ur Squamous Epith Cells 0-2 (0-2) /HPF Urine Bacteria None Seen (None Seen) Hyaline Casts 0-2 (0-2) /LPF Urine Test NEGATIVE (NEGATIVE) Social Determinants Patient?s care significantly limited by Social Determinants of Health including: Problems related to primary support group Discharge Plan Discharge Clinical Impression: Gastritis Patient Disposition: Home, Self-Care Prescriptions: No Action ondansetron 4 mg tablet,disintegrating 4 mg PO Q8H PRN (Reason: nausea and vomiting) Qty: 20 0RF omeprazole 20 mg tablet,delayed release (DR/EC) 20 mg PO DAILY Qty: 14 0RF nitrofurantoin monohyd/m-cryst [Macrobid] 100 mg capsule 100 mg PO BID 7 Days Qty: 13 0RF Rx Instructions: must administer with a meal/food acetaminophen [Tylenol Extra Strength] 500 mg tablet 1,000 mg PO QID PRN (Reason: pain) Qty: 30 0RF Mirena 21 mcg/24 hours (8 yrs) 52 mg intrauterine device intrauterine Referrals: [facility] [Primary Care Provider] - 01/18/25 Print Language: Croatian
[2025-01-16 09:06] VITALS: BP 114/72; PULSE 60; RESP 12; TEMP 36.2; O2SAT 99
== END 2025-01-16 09:07 | disposition home or self-care (01) ==
PROVIDERS: Emergency Provider Emergency Medicine Emergency Medical Services
DX: K29.70 Gastritis, unspecified, without bleeding (principal); R10.13 Epigastric pain; Z79.899 Other long term (current) drug therapy
CPT/HCPCS: 36415; 80053; 81001; 81025; 83690; 83735; 85025; 99212; 99283; 99284

== ENCOUNTER 2025-01-16 11:17 | Outpatient (AMB) | payer MEDICAID, SELFPAY ==
[2025-01-16 11:46] VITALS: BP 104/64; BMI 22.0
--- NOTE | 2025-01-16 11:46 | A.OFFVIS_ITS ---
Vital Signs 01/16/25 11:46 Height 5 ft 3 in Weight 124 lb 6 oz BMI 22.0 BP 104/64 Intake Visit Reasons: STD testing Allergies No Known Allergies Allergy (Verified 01/16/25 05:17) Medication List - Last Reconciled 01/16/25 by Marya Carrasco CNM acetaminophen (Tylenol Extra Strength) 1,000 mg (2 x 500 mg) PO QID PRN levonorgestrel (Mirena) intrauterine nitrofurantoin monohyd/m-cryst 100 mg (Macrobid) 100 mg PO BID 7 days omeprazole 20 mg PO DAILY ondansetron 4 mg PO Q8H PRN HPI HPI STD testing: Details: patient is here for STD check she had testing done at her last office asst visits that were negative and the last labs in our system were negative however she said she had an encounter with somebody in the [facility] it came [facility] with positive trich she told the person but she does not think that he believed her or got treatment she was treated herself and she had a negative test of cure however she then had sex with him again and she believes that she has contract at it again and she wants to be checked and in fact she would like to be treated regardless she has a yellow discharge that she did not have before that reminds her of when she did have the trich. the positive trich noted in her phone was from November 08 7 [facility] Medical History (Updated 01/16/25 @ 13:01 by Marya Carrasco CNM) History of use of contraceptive intrauterine device (IUD) Family History Paternal Grandmother Breast cancer Social History Alcohol intake: never Patient Tobacco Use Status: Never used Tobacco Substance Use Type: Marijuana Current occupational status: unemployed Gender identity: Female Female Reproductive History Menstrual Age of Menarche: 10 Duration of menses: 3-5 days Date of last menstrual period: 01/09/25 control method: other (Mirena IUD) Total pregnancies: 0 Date of last pap smear: 07/08/24 History of abnormal pap smear: No Physical Exam Vital Signs: Last Vital Signs BP 104/64 01/16/25 11:46 BMI result Body Mass Index 22.0 Other: external exam within normal limits vagina is pink and moist there is a whitish slightly yellowish discharge cervix is nulliparous with Mirena strings easily visible. Swabs taken for gonorrhea chlamydia trichomoniasis bacterial vaginosis and yeast. Results Reviewed Results Reviewed: ddendum Addendum #1 HPV High Risk: Negative HPV Genotyping 16: Negative HPV Genotyping 18: Negative Electronically Signed By: Vipin Jaime MD 07/19/24 1240 Interpretation Satisfactory for evaluation. No endocervical cells seen. Negative for intraepithelial lesion or malignancy. Clinical Information LMP: Unknown date Previous PAP test: Unknown date Material Received ThinPrep-Vaginal/Cervical Electronically Signed By: SANJAY Bonilla (ASCP) 07/11/24 1242 As of June 29, 2024, the PAP screening and HPV testing will be performed at [facility] (CLIA#[id number]), [address] [place] [address]. Testing for HPV was performed using the [employer] [id number] system. The presence of HPV is the female genital tract is associated with a number of diseases, including cervical carcinoma. The HPV DNA high risk pool test for HPV 31, 33, 35, 39, 45, 51, 52, 56, 58, 59, 66 and 68. The testing for HPV 16 and 18 genotypes has also been performed. A positive result indicates detection of nucleic acid sequences from one or more subtypes, whereas negative result indicates such sequences were not detected. Technical services and automated prescreening were performed by the [employer] System. The Pap Test is a screening procedure with the inherent possibility of both false negative and false positive results. Results should be interpreted in the context of historic and current clinical findings. Reliability of the Pap Test is enhanced by performing the test on a regular repetitive basis. Patient: Diaz Field Age/Sex: 23/F MR#: [id number] Page 1 of 1 Assessment & Plan Assessment & Plan (1) Potential exposure to STD: Comment: patient had trichomoniasis November of 2024 [facility] and believes she has been re exposed and wants retesting and re- treatment as well. providing both 01/16/25. Code(s): Z20.2 - Contact with and (suspected) exposure to infections with a predominantly sexual mode of transmission Category: Medical (2) IUD contraception: Code(s): Z97.5 - Presence of (intrauterine) contraceptive device Category: Medical Plan reviewed options patient could await the results of the labs and treat accordingly but she is so anxious and believes that she did come in contact with trich again because she does not believe the the person got treated as she had recommended she would rather just be treated again just to be on the safe side because the discharge is also not the normal color for her it is yellowish it does not particularly have a that is smell or itch but she does not want to wait for that. I am offering testing for blood work for STIs as well and she is interested in getting those done and she is going to go to the lab today and get those done. She is concerned about having her mother see the medication if [facility] is [facility] so she is asking me to send the prescription for the metronidazole pills b.i.d. for 7 days to her [facility] pharmacy. I also informed her that this is the same medication regime that is used to treat bacterial vaginosis and is commonly used for that. . She is happy with the IUD it is helping her with her periods and she is not having any issues with it at all I did review that condoms are a very good idea with every sexual encounter. RTC for annual exams or PRN though it appears that she had an annual exam with a Pap smear done at the [facility] this and it was negative. Orders: Orders CT NG by PCR Today Z20.2 - Contact with and (suspected) exposure to infections with a predominantly sexual mode of transmission Bacterial Vaginosis Panel Today Z20.2 - Contact with and (suspected) exposure to infections with a predominantly sexual mode of transmission Hepatitis B Surface Antigen Today Z20.2 - Contact with and (suspected) exposure to infections with a predominantly sexual mode of transmission, Z97.5 - Presence of (intrauterine) contraceptive device Hepatitis C Antibody Today Z20.2 - Contact with and (suspected) exposure to infections with a predominantly sexual mode of transmission, Z97.5 - Presence of (intrauterine) contraceptive device HIV Ab/Ag Today Z20.2 - Contact with and (suspected) exposure to infections with a predominantly sexual mode of transmission, Z97.5 - Presence of (intrauterine) contraceptive device Syphilis Screen Today Z20.2 - Contact with and (suspected) exposure to infections with a predominantly sexual mode of transmission, Z97.5 - Presence of (intrauterine) contraceptive device Medications: New metronidazole 500 mg PO Q12H 14 tabs 0RF Coding Level of Care Code Est Pt Level 3 (02802) Diagnoses Potential exposure to STD Z20.2 IUD contraception Z97.5
--- OUTSIDE RECORDS SUMMARY | 2025-01-16 12:07 | XMS_ITS | Clinical Summary ---
Author Organization [facility] Address [address] [facility] [address] [place] [address] Care Team Providers Care Medical Librarian Name Role Phone Cora Jimenez MD Primary Care Pro vider Allergies No known active allergies Medications * This document contains information received from the source organization and may not represent a complete record from that organization. 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 Scalp lesion 06/29/2024 Chest discomfort 06/29/2024 Health care maintenance 06/19/2023 Depression 06/19/2023 Marijuana abuse 06/19/2023 Atopic dermatitis 06/11/2023 Seasonal allergic rhinitis 11/20/2015 Encounters Date Type Department Care Team Description 01/04/2025 Orders Only GENERIC EXTERNAL DATA DEPARTMENT Provider, Generic External Data 12/30/2024 2:30 PM EDT Office Visit [facility] MEDICINE [address] [place] [address] Bailey Dugan MD Hyperhidrosis of axilla (Primary Dx); EIC (epidermal inclusion cyst) 12/30/2024 Travel 11/29/2024 8:00 AM EDT Office Visit [facility] CHC ADULT DENTAL [address] [place] [address] Vikram Hood Dental calculus (Primary Dx) 11/18/2024 Population Health Risk Score [facility] (C3) Department [address] [phone] Provider, Population Health Generic from Last 3 Months Immunizations Name Administration Dates Next Due DTaP 12/04/2005, 2,10/08/2000,05/08,1999 HPV, Quadrivalent 10/18/2013,08/03/2012,07/29/20 11 Hep A, ped/adol, 2 dose 10/18/2013,06/24/2010 Hep B, Adolescent or Pediatric 10/08/2000,1999 Hib (HbOC) 01/05/2001,10/08/2000,05/08/2000 IPV 12/04/2005, 1,05/08/2000,11/05 Influenza injectable quadriv alent preservative free 06/18/2023,06/05/2016,12/06/2015 Influenza, IIV3, injectable 07/29/2011, 8 Influenza, Split (incl. katty fied surface antigen) 10/18/2013,08/03/2012 MMR 12/04/2005,01/05/2001 Meningococcal MCV4P ACYW-135 12/06/2015,08/03/20 12 Pneumococcal Conjugate PCV 7 04/07/2001,02/06/20 01 Tdap 06/18/2023,08/03/2012 Varicella 06/27/2008,01/05/2001 Family History Medical History Relation Name Comments No Known Problems Father No Known Problems Father's Brother No Known Problems Father's Sister No Known Problems Maternal Grandfather No Known Problems Maternal Grandmother No Known Problems Mother No Known Problems Mother's Brother No Known Problems Mother's Sister No Known Problems Paternal Grandfather Relation Name Status Comments Father Father's Brother Father's Sister Maternal Grandfather Maternal Grandmother Mother Mother's Brother Mother's Sister Paternal Grandfather Social History Tobacco Use Types Packs/Day Years Used Date Smoking Tobacco: Never Smokeless Tobacco: Never Tobacco Cessation:Counseling Given: Not Answered Alcohol Use Standard Drinks/Week Comments Never 0 (1 standard drink = 0.6 oz pur e alcohol) Alcohol Answer Date Recorded Frequency of Alcohol Consumption Not on file 06/28/2024 Average Number of Drinks Not on file 024 Frequency of Binge Drinking Not on file 06/08 Score 0 06/28/2024 Depression Answer Date Recorded Patient Health Questionnaire-9 Score 15 06/28/2024 Patient Health Questionnaire-9 Score 15 06/28/2024 Last PHQ-9: Questionnaire Data Not on file 1 Housing Stability Answer Date Recorded What is your housing situation today? I have bala tuttle 06/16/[address] you li ve. Do you have problems with any of the following? None of the above 06/16/2024 Food Insecurity Answer Date Recorded Within the past 12 months, y ou worried that your food would run out before you got money to buy more: Never True 06/16/2024 Within the past 12 months,th e food you bought just didn't last and you didn't have enough money to get more: Never True 06/2024 Transportation Answer Date Recorded In the past 12 months, has l ack of transportation kept you from medical appts, meetings, work or from getting things needed for daily living? No 06/16/2024 Utilities Answer Date Recorded In the past 12 months, has t he electric, gas, oil or water company threatened to shut off services in your home? No 06/16/2024 Depression Answer Date Recorded Patient Health Questionnaire-2 Score 4 06/28/2024 Internet Access Answer Date Recorded Internet Access Q1 Yes 06/16/2024 Internet Access Q2 Not on file 06/16/2024 Comments No Sex and Gender Information Value Date Recorded Sex Assigned at Female 07/07/2022 10:18 AM EDT Legal Sex Female 10:18 AM EDT Gender Identity Female 07/07/2022 10:18 AM EDT Sexual Orientation Straight 07/07/2022 10 :18 AM EDT Last Filed Vital Signs Vital Sign Reading Time Taken Comments Blood Pressure 110/68 12/30/2024 2:47 PM EDT Pulse 70 12/30/2024 2:47 PM EDT Temperature 37.6 ??C (99.7 ??F) 12/30/2024 2:47 PM ED T Respiratory Rate 16 12/30/2024 2:47 PM EDT Oxygen Saturation 98% 06/28/2024 11:04 AM EDT Inhaled Oxygen Concentration - - Weight 58.5 kg (129 lb) 12/30/2024 2:47 PM EDT Height 154.9 cm (5' 1 ) 12/30/2024 2:47 PM EDT Body Mass Index 24.37 12/30/2024 2:47 PM EDT Plan of Treatment Upcoming Encounters Date Type Department Care Team (Late st Contact Info) Description 06/05/2025 3:00 PM EDT Office Visit [facility] ADULT DENTAL [address] [place] [address] Vikram Hood Health Maintenance Due Date Last Done Comments Hepatitis B Vaccines (3 of 3 - 3-dose series) 12/03/2000 10/08/2000, 06/07/2000, 1999 COVID-19 Vaccine ( season) 2024 Influenza Vaccine (#1) 2024 , 06/05/2016, 12/06/2015, Additional history exists Dental Oral Exam 06/02/2025 11/29/2024, , 10/13/2017, Additional history exists Dental Prophylaxis 06/02/2025 11/29/2024, 0 04/19/2018, 10/13/2017, Additional history exists SDOH Screening 06/16/2025 06/16/2024 Alcohol/Substance Use Screening 06/28/2025 06/28/2024 Depression Screening 06/28/2025 06/28/2024, 06/28/20 24 Family Planning (PISQ) 07/07/2025 07/07/2024 Tobacco Screening 11/29/2025 11/29/2024 Dental X-Ray: Bitewings 11/30/2025 11/30/19, 10/13/2017, 01/28/2016 Pap Smear 07/07/2027 07/07/2024, 06/19/2021 Dental X-Ray: Full Mouth 12/01/2027 11/29/2024 DTaP/Tdap/Td Vaccines (8 - Td or Tdap) 06/18/2033 06/18/2023, 08/03/2012, 12/04/2005, Additional history exists Zoster Vaccines (1 of 2) 2049 RSV Patients and Patients Aged 60 years or older (1 - 1-dose 75+ series) 2074 HIB Vaccines Completed 01/05/2001, 09/2000, 05/08/2000 Pneumococcal Vaccine: Pediatrics (0 to 5 Years) and At-Risk Patients (6 to 49) Years) Aged Out 04/07/2001, 02/05/2001 No longer eligibl e based on patient's age to complete this topic IPV Vaccines Completed 12/04/2005, 09/2000, 05/08/2000, Additional history exists HPV Vaccines Completed 10/18/2013, 07/09, 07/29/2011 Hepatitis A Vaccines Completed 10/18/2013, 06/24/20 10 Meningococcal Vaccine Completed 12/06/2015, 012 HIV Screening Completed 06/18/2023 Hepatitis C Screening Completed 06/18/2023 RSV under 20 months Aged Out No longe r eligible based on patient's age to complete this topic Rotavirus Vaccines Aged Out No longer eligible based on patient's age to complete this topic Procedures Procedure Name Priority Date/Time Associated Diagnosis Comments HCG, QL, URINE Routine 01/16/2025 6:13 AM EDT URINALYSIS, COMPLETE, WITH REFLEX TO CULTURE Routine 01/16/2025 6:13 AM EDT LIPASE Routine 01/16/2025 5:53 AM EDT MAGNESIUM Routine 01/16/2025 5:53 AM EDT COMPREHENSIVE METABOLIC PANEL Routine 01/16/2025 5:53 AM EDT CBC WITH AUTO DIFFERENTIAL Routine 01/16/2025 5:53 AM EDT URINALYSIS, COMPLETE, WITH REFLEX TO CULTURE Routine 01/04/2025 2:48 AM EDT COMPREHENSIVE PERIODONTAL EVALUATION - NEW OR ESTABLISHED PATIENT Routine 11/29/2024 8:00 AM EDT PERIODIC ORAL EVALUATION - ESTABLISHED PATIENT Routine 11/29/2024 8:00 AM EDT CASE PRESENTATION, DETAILED AND EXTENSIVE TREATMENT PLANNING Routine 11/29/2024 8:00 AM EDT ORAL HYGIENE INSTRUCTIONS Routine 11/29/2024 8:00 AM EDT INTRAORAL - COMPLETE SERIES OF RADIOGRAPHIC IMAGES Routine 11/29/2024 8:00 AM EDT PROPHYLAXIS - ADULT Routine 11/29/2024 8 :00 AM EDT PAP SMEAR Routine 07/07/2024 10:56 AM EDT Cervical cancer screening HEPATITIS C AB W/REFL TO HCV RNA, QN, PCR Routine 06/18/2023 12:07 PM EDT Annual physical exam HIV ANTIBODY/ANTIGEN ([place] DPH) Routine 06/18/2023 12:07 PM EDT from Last 3 Months or Most Recently Relevant to Health Maintenance Results * Urinalysis, Complete, with Reflex to Culture (01/16/2025 6:13 AM EDT) Only the most recent of2 resultswithin the time period is included. Color Urine Yellow [facility] Appearance Urine Clear [facility] PH 5.5 5.0 - 9.0 [facility] Glucose Urine UA Negative Negative mg/dL [facility] Urine Blood Negative Negative [facility] Specific [place] - Urine 1.025 1.005 - 1.025 [facility] Urine Protein Trace Neg-Trace mg/dL [facility] Urine Ketones 40 Negative mg/dL [facility] Nitrite Urine Negative Negative [facility] Leukocyte Esterase Urine Negative Negative [facility] RBC Urine 0-2 0 - 2 /HPF [facility] Urine WBC 0-5 0 - 5 /HPF [facility] Urine Squamous Epithelial Cell 0-2 0 - 2 /HPF [facility] Urine Bacteria None Seen None Seen [facility] Hyaline Casts, Urine 0-2 0 - 2 /LPF [facility] 01/16/2025 6:13 AM EDT 01/16/2025 6:18 AM EDT Narrative [facility] - 01/16/2025 6:33 AM EDT [id number], Clean Catch us Generic External Data Provider LAB URINE ORDERAB LES Final Result Performing Organization Address City/[facility]/ZIP Co de Phone Number [facility] [address] [place] [address] [phone] * HCG, Qualitative, Urine (01/16/2025 6:13 AM EDT) Pathologist [facility] Urine NEGATIVE NEGATIVE [facility] Comment:This test was develo ped to detect early . Falsenegative results may occur after the 5th - 7th week ofpregnancy when using this test method. If clinicallyindicated, consider a serum hCG. 01/16/2025 6:13 AM EDT 01/16/2025 8:20 AM EDT us Generic External Data Provider LAB URINE ORDERAB LES Final Result Performing Organization Address [facility] Co de Phone Number [facility] [address] [place] [address] [phone] * (ABNORMAL) CBC auto differential (01/16/2025 5:53 AM EDT) [facility] White Blood Count 7.4 4.8 - 10.8 X10*3/uL [facility] Red Blood Count 4.06(L) 4.20 - 5.50 X10*6/uL [facility] Hemoglobin 11.7(L) 12.0 - 16.0 g/dl [facility] Hematocrit 34.7(L) 37.0 - 47.0 % [facility] Mean Corpuscular Volume 85.5 80.0 - 98.0 fL [facility] Mean Corpuscular Hemoglobin 28.8 27.0 - 33.0 pg [facility] Mean Corpuscular HGB Conc 33.7 31.0 - 35.0 g/dl [facility] Red Cell Distribution Width 12.6 11.0 - 16.0 % [facility] Platelet Count 224 160 - 400 X10*3/uL [facility] Mean Platelet Volume 10.7 9.4 - 12.3 fL [facility] Neutrophils Percent Auto 54.0 45 - 73 % [facility] Imm Gran Pct Auto 0.1 0.0 - 0.4 % [facility] Lymphocytes Percent Auto 36.7 20 - 40 % [facility] Monocytes Percent Auto 7.9 2 - 11 % [facility] Eosinophils Percent Auto 1.2 0 - 4 % [facility] Basophils Percent Auto 0.1 0 - 2 % [facility] NRBC Pct Auto 0.0 0.0 - 0.2 /100WBC [facility] Neutrophils Absolute Auto 4.0 2.0 - 8.3 x10*3/uL [facility] Imm Gran Abs Auto 0.01 0.00 - 0.03 X10*3/uL [facility] Lymphocytes Absolute Auto 2.7 1.2 - 4.9 X10*3/uL [facility] Monocytes Absolute Auto 0.6 0.1 - 1.2 X10*3/uL [facility] Eosinophils Absolute Auto 0.1 0.0 - 0.4 X10*3/uL [facility] Basophils Absolute Auto 0.0 0.0 - 0.2 X10*3/uL [facility] NRBC Abs Auto 0.000 0.0 - 0.012 X10*3/uL [facility] 01/16/2025 5:53 AM EDT 01/16/2025 6:10 AM EDT us Generic External Data Provider LAB BLOOD ORDERAB LES Final Result [facility] [address] [place] [phone] * Magnesium (01/16/2025 5:53 AM EDT) Magnesium 1.8 1.6 - 2.6 mg/dL [facility] 01/16/2025 5:53 AM EDT 01/16/2025 6:10 AM EDT us Generic External Data Provider LAB BLOOD ORDERAB LES Final Result [facility] [address] [place] [phone] * Lipase (01/16/2025 5:53 AM EDT) Lipase 18 8 - 78 U/L [facility] 01/16/2025 5:53 AM EDT 01/16/2025 6:10 AM EDT us Generic External Data Provider LAB BLOOD ORDERAB LES Final Result Performing Organization Address [facility] Co de Phone Number [facility] [address] [place] [address] [phone] * (ABNORMAL) Comprehensive Metabolic Panel (01/16/2025 5:53 AM EDT) Sodium 139 135 - 145 mmol/L [facility] Potassium 3.4 3.3 - 5.1 mmol/L [facility] Chloride 107 96 - 108 mmol/L [facility] Carbon Dioxide 24 22 - 29 mmol/L [facility] Anion Gap 11(L) 12 - 20 [facility] Urea Nitrogen (BUN) 11 9 - 16 mg/dL [facility] Creatinine, Serum 0.68 0.5 - 1.4 mg/dL [facility] Creatinine Clr Calc Pharmacy 104.6 [facility] Comment:Provided height and weight: 160.02 cm,58.5 kg.eGFR (calculated from the MDRD study equation) and eCrCl(calculated from the Cockcroft-Gault equation) are based ondifferent parameters and may not yield comparable results.If eCrCl result is absurd, please check patient'sheight/weight. Estimated Glomerular Filt Rate >60 [facility] Comment:Chronic Kidney Disea se: Estimated GFR < 60 mL/min/1.50s6Obkryl Kidney Disease: Estimated GFR < 15 mL/min/1.73m2 Glucose 85 60 - 115 mg/dL [facility] Calcium 9.1 8.4 - 10.2 mg/dL [facility] Bilirubin, Total 0.5 0.0 - 1.0 mg/dL [facility] Aspartate Amino Transferase 20 5 - 31 U/L [facility] Alanine Aminotransferase 17 0 - 31 U/L [facility] Total Protein 6.5 6.5 - 8.0 g/dL [facility] Albumin Level 4.3 3.5 - 5.0 g/dL [facility] Alkaline Phosphatase 42 39 - 117 U/L [facility] 01/16/2025 5:53 AM EDT 01/16/2025 6:10 AM EDT us Generic External Data Provider LAB BLOOD ORDERAB LES Final Result Performing Organization Address [facility]/State/[facility] Co de Phone Number [facility] [address] [place] [phone] * Pap Smear (07/07/2024 10:56 AM EDT) Swab 07/07/2024 10:5 6 AM EDT 07/08/2024 10:23 AM EDT Narrative [facility] - 07/19/2024 12:40 PM EST ----- ------- Name: Diaz Field ?Age/Sex: 23/F ? : 2000 Unit#: [id number] ?? Attend Dr: JOSIE RODRIGUEZ CNM ?Re07/07/24 ?Status: DEP REF ? [facility] ? Disch: ? ----- ------- SPEC : [id number] ?RECD: 07/08/24 ? STATUS: ??SOUT ? REQ NUM: [id number] ? AWILDA: 07/07/242 ? SUBM DR: JOSIE RODRIGUEZ CNM ? ENTERED: ??07/08/24 ?SP TYPE: Pap Smr ?OTHR DR: ? ORDERED: ??Pap Smear ?Addendum Addendum ??1 ?Entered: 07/19/24 HPV High Risk: ??Negative HPV Genotyping 16: ??Negative HPV Genotyping 18: ??Negative Addendum Signed (signature on file) Vipin Jaime MD 07/19/240 ? ----- ------- ? Interpretation ?? Satisfactory for evaluation. ?? No endocervical cells seen. ?? Negative for intraepithelial lesion or malignancy. ?Clinical Information LMP: Unknown date Previous PAP test: Unknown date ? Material Received ?? ThinPrep-Vaginal/Cervical ----- ------- Signed (signature on file) SANJAY Bonilla (ASCP) 07/11/24 1242 ? (signature on file) Vipin Jaime MD 07/19/24 1240 ? ----- ------- ? END OF REPORT ? us Josie Rodriguez [facility] CYTOLOGY ORDERABLES F inal Result Performing Organization Address [facility]/ZIP Co de Phone Number [facility] [address] [place] [phone] [phone] * HIV Ab/Ag ([facility]) (06/18/2023 12:07 PM EDT) HIV AB/AG Nonreactive Nonreactive [facility] Comment:HIV-1 p24 Ag and/or HIV-1/HIV-2 Ab not detected.A test result that is nonreactive does not exclude thepossibility of exposure to or infection with HIV-1 and/orHIV-2. Nonreactive results in this assay for individualswith prior exposure to HIV-1 and/or HIV-2 may be due toantigen and antibody levels that are below the limit ofdetection of this assay.The [employer] HIV Ag/Ab Combo assay result andsupplemental assay results should be interpreted inconjunction with the patient's clinical presentation,history and other laboratory results. If the results areinconsistent with clinical evidence, additional testing issuggested to confirm the result. 06/18/2023 12:0 7 PM EDT 06/18/2023 12:56 PM EDT Cora Pisano MD LAB BLOOD ORDERAB LES Final Result Performing Organization Address [facility]/ZIP Co de Phone Number [facility] [address] [place] [phone] * Hepatitis C Antibody with Reflex to HCV, RNA, Quantitative, Real-Time PCR (06/18/2023 12:07 PM EDT) Hepatitis C Antibody Nonreactive Nonreactive [facility] Comment:Antibodies to HCV no t detected; does not exclude early acuteHCV infection. Blood Venous blood specimen / Unknown 06/18/2023 12:07 PM EDT 06/18/2023 12:56 PM EDT Cora Pisano MD LAB BLOOD ORDERAB LES Final Result [facility] [address] [place], [place] [phone] from Last 3 Months or Most Recently Relevant to Health Maintenance Insurance [facility] STAND ADULT Care Teams Medical Librarian Relationship Specialty Start Date End Date Cora Jimenez MD [address] [place] [address] [phone] PCP - General Internal Medicine 07/17/23
--- OUTSIDE RECORDS SUMMARY | 2025-01-16 12:07 | XMS_ITS | Encounter Summary ---
Author Organization [employer] Address [address] [facility] [address] [place] [address] Care Team Providers Care Scalp Specialist Name Role Phone Cora Jimenez MD Primary Care Pro vider Encounter Details Date Type Department Care Team (Late st Contact Info) Description 06/10/2023 Abstract [facility] [address], [place] [phone] Swati Villalpando Social History Tobacco Use Types [...] Description 06/05/2025 3:00 PM EDT Office Visit [facility] [address] [place] [address] Vikram Hood documented as of this encounter Procedures Procedure Name Priority Date/Time Associated Diagnosis Comments PAP/HPV Routine 06/19/2021 documented in this encounter Results * Hm Pap Smear (06/19/2021) Pap Negative for intraephithelial lesion or malignancy Negative for intraephithelial lesion or malignancy, Other Historical Provider HEALTH MAINTENANCE Final Result documented in this encounter Visit Diagnoses Not on filedocumented in this encounter Care Teams Scalp Specialist Relationship Specialty Start Date End Date Cora Jimenez MD [address] [place] [phone] PCP - General Internal Medicine 07/17/23 documented as of this encounter
== END 2025-01-16 14:58 | disposition home or self-care (01) ==
LOC: HO.HWS 11:17
PROVIDERS: Visit Provider Advanced Practice Midwife
DX: Z20.2 Contact with and (suspected) exposure to infections with a predominantly sexual mode of transmission (principal); Z97.5 Presence of (intrauterine) contraceptive device
CPT/HCPCS: 99213

== ENCOUNTER 2025-01-16 12:50 | Outpatient (REF) | payer MEDICAID, SELFPAY ==
--- OUTSIDE RECORDS SUMMARY | 2025-01-16 13:09 | XMS_ITS | Clinical Summary ---
Author Organization [email or web address] [facility] Address [address] [facility] 7t [place] [address] Care Team Providers Care Brand Analyst Name Role Phone Cora Jimenez MD Primary [...] Data 12/30/2024 2:30 PM EDT Office Visit [facility] [address] [place] [address] Bailey Dugan MD Hyperhidrosis of axilla (Primary Dx); EIC (epidermal inclusion cyst) 12/30/2024 Travel 11/29/2024 8:00 AM EDT Office Visit [facility] [address] [place] [address] Vikram Hood Dental calculus (Primary Dx) 11/18/2024 Population Health Risk Score [facility] (C3) Department [address] [phone] Provider, Population Health Generic from [...] Description 06/05/2025 3:00 PM EDT Office Visit [facility] [address] [place] [address] Vikram Hood Health Maintenance Due Date Last [...] time period is included. Color Urine Yellow [facility] Appearance Urine Clear [facility] PH 5.5 5.0 - 9.0 [facility] Glucose Urine UA Negative Negative mg/dL [facility] Urine Blood Negative Negative [facility] Specific [place] - Urine 1.025 1.005 - 1.025 [facility] Urine Protein Trace Neg-Trace mg/dL [facility] Urine Ketones 40 Negative mg/dL [facility] Nitrite Urine Negative Negative [facility] Leukocyte Esterase Urine Negative Negative [facility] RBC Urine 0-2 0 - 2 /HPF [facility] Urine WBC 0-5 0 - 5 /HPF [facility] Urine Squamous Epithelial Cell 0-2 0 - 2 /HPF [facility] Urine Bacteria None Seen None Seen [facility] Hyaline Casts, Urine 0-2 0 - 2 /LPF [facility] 01/16/2025 6:13 AM EDT 01/16/2025 6:18 AM EDT Narrative [facility] - 01/16/2025 6:33 AM EDT [id number], Clean Catch us Generic External Data Provider LAB URINE ORDERAB LES Final Result Performing Organization Address City/[facility]/ZIP Co de Phone Number [facility] [address] [place] [address] [phone] * HCG, Qualitative, Urine (01/16/2025 6:13 AM EDT) Pathologist [facility] [place] Urine NEGATIVE NEGATIVE [facility] Comment:This test was develo ped to detect early . Falsenegative results may occur after the 5th - 7th week ofpregnancy when using this test method. If clinicallyindicated, consider a serum hCG. 01/16/2025 6:13 AM EDT 01/16/2025 8:20 AM EDT us Generic External Data Provider LAB URINE ORDERAB LES Final Result Performing Organization Address [facility] Co de Phone Number [facility] [address] [place] [address] [phone] * (ABNORMAL) CBC auto differential (01/16/2025 5:53 AM EDT) [facility] White Blood Count 7.4 4.8 - 10.8 X10*3/uL [facility] Red Blood Count 4.06(L) 4.20 - 5.50 X10*6/uL [facility] Hemoglobin 11.7(L) 12.0 - 16.0 g/dl [facility] Hematocrit 34.7(L) 37.0 - 47.0 % [facility] Mean Corpuscular Volume 85.5 80.0 - 98.0 fL [facility] Mean Corpuscular Hemoglobin 28.8 27.0 - 33.0 pg [facility] Mean Corpuscular HGB Conc 33.7 31.0 - 35.0 g/dl [facility] Red Cell Distribution Width 12.6 11.0 - 16.0 % [facility] Platelet Count 224 160 - 400 X10*3/uL [facility] Mean Platelet Volume 10.7 9.4 - 12.3 fL [facility] Neutrophils Percent Auto 54.0 45 - 73 % [facility] Imm Gran Pct Auto 0.1 0.0 - 0.4 % [facility] Lymphocytes Percent Auto 36.7 20 - 40 % [facility] Monocytes Percent Auto 7.9 2 - 11 % [facility] Eosinophils Percent Auto 1.2 0 - 4 % [facility] Basophils Percent Auto 0.1 0 - 2 % [facility] NRBC Pct Auto 0.0 0.0 - 0.2 /100WBC [facility] Neutrophils Absolute Auto 4.0 2.0 - 8.3 x10*3/uL [facility] Imm Gran Abs Auto 0.01 0.00 - 0.03 X10*3/uL [facility] Lymphocytes Absolute Auto 2.7 1.2 - 4.9 X10*3/uL [facility] Monocytes Absolute Auto 0.6 0.1 - 1.2 X10*3/uL [facility] Eosinophils Absolute Auto 0.1 0.0 - 0.4 X10*3/uL [facility] Basophils Absolute Auto 0.0 0.0 - 0.2 X10*3/uL [facility] NRBC Abs Auto 0.000 0.0 - 0.012 X10*3/uL [facility] 01/16/2025 5:53 AM EDT 01/16/2025 6:10 AM EDT us Generic External Data Provider LAB BLOOD ORDERAB LES Final Result [facility] [address] [place] [phone] * Magnesium (01/16/2025 5:53 AM EDT) Magnesium 1.8 1.6 - 2.6 mg/dL [facility] 01/16/2025 5:53 AM EDT 01/16/2025 6:10 AM EDT us Generic External Data Provider LAB BLOOD ORDERAB LES Final Result [facility] [address] [place] [address] [phone] * Lipase (01/16/2025 5:53 AM EDT) Lipase 18 8 - 78 U/L [facility] 01/16/2025 5:53 AM EDT 01/16/2025 6:10 AM EDT us Generic External Data Provider LAB BLOOD ORDERAB LES Final Result Performing Organization Address [facility] Co de Phone Number [facility] [address] [place] [address] [phone] * (ABNORMAL) Comprehensive Metabolic Panel (01/16/2025 5:53 AM EDT) Sodium 139 135 - 145 mmol/L [facility] Potassium 3.4 3.3 - 5.1 mmol/L [facility] Chloride 107 96 - 108 mmol/L [facility] Carbon Dioxide 24 22 - 29 mmol/L [facility] Anion Gap 11(L) 12 - 20 [facility] Urea Nitrogen (BUN) 11 9 - 16 mg/dL [facility] Creatinine, Serum 0.68 0.5 - 1.4 mg/dL [facility] Creatinine Clr Calc Pharmacy 104.6 [facility] Comment:Provided height and weight: 160.02 cm,58.5 kg.eGFR (calculated from the MDRD study equation) and eCrCl(calculated from the Cockcroft-Gault equation) are based ondifferent parameters and may not yield comparable results.If eCrCl result is absurd, please check patient'sheight/weight. Estimated Glomerular Filt Rate >60 [facility] Comment:Chronic Kidney Disea se: Estimated GFR < 60 mL/min/1.40p7Gdkupr Kidney Disease: Estimated GFR < 15 mL/min/1.73m2 Glucose 85 60 - 115 mg/dL [facility] Calcium 9.1 8.4 - 10.2 mg/dL [facility] Bilirubin, Total 0.5 0.0 - 1.0 mg/dL [facility] Aspartate Amino Transferase 20 5 - 31 U/L [facility] Alanine Aminotransferase 17 0 - 31 U/L [facility] Total Protein 6.5 6.5 - 8.0 g/dL [facility] Albumin Level 4.3 3.5 - 5.0 g/dL [facility] Alkaline Phosphatase 42 39 - 117 U/L [facility] 01/16/2025 5:53 AM EDT 01/16/2025 6:10 AM EDT us Generic External Data Provider LAB BLOOD ORDERAB LES Final Result Performing Organization Address [facility]/State/[facility] Co de Phone Number [facility] [address] [place] [phone] * Pap Smear (07/07/2024 10:56 AM EDT) Swab 07/07/2024 10:5 6 AM EDT 07/08/2024 10:23 AM EDT Narrative [facility] - 07/19/2024 12:40 PM EST ----- ------- Name: Diaz Field ?Age/Sex: 23/F ? : 2000 Unit#: [id number] ?? Attend Dr: JOSIE RODRIGUEZ CNM ?Re07/07/24 ?Status: DEP REF ? [facility] ? Disch: ? ----- ------- SPEC : [id number] ?RECD: 07/08/24 ? STATUS: ??SOUT ? REQ NUM: [id number] ? AWILDA: 07/07/242 ? SUBM DR: JOSIE [...] END OF REPORT ? us Josie Rodriguez [facility] CYTOLOGY ORDERABLES F inal Result Performing Organization Address [facility]/ZIP Co de Phone Number [facility] [address] [place] [address] [phone] * HIV Ab/Ag ([facility]) (06/18/2023 12:07 PM EDT) HIV AB/AG Nonreactive Nonreactive [facility] Comment:HIV-1 p24 Ag and/or HIV-1/HIV-2 Ab not detected.A test result that is nonreactive does not exclude thepossibility of exposure to or infection with HIV-1 and/orHIV-2. Nonreactive results in this assay for individualswith prior exposure to HIV-1 and/or HIV-2 may be due toantigen and antibody levels that are below the limit ofdetection of this assay.The [employer]enovir [employer]arman[employer] HIV Ag/Ab Combo assay result andsupplemental assay results should be interpreted inconjunction with the patient's clinical presentation,history and other laboratory results. If the results areinconsistent with clinical evidence, additional testing issuggested to confirm the result. 06/18/2023 12:0 7 PM EDT 06/18/2023 12:56 PM EDT Cora Pisano MD LAB BLOOD ORDERAB LES Final Result Performing Organization Address [facility]/ZIP Co de Phone Number [facility] [address] [place] [phone] * Hepatitis C Antibody with Reflex to HCV, RNA, Quantitative, Real-Time PCR (06/18/2023 12:07 PM EDT) Hepatitis C Antibody Nonreactive Nonreactive [facility] Comment:Antibodies to HCV no t detected; does not exclude early acuteHCV infection. Blood Venous blood specimen / Unknown 06/18/2023 12:07 PM EDT 06/18/2023 12:56 PM EDT Cora Pisano MD LAB BLOOD ORDERAB LES Final Result [facility] [address] [place], [place] [phone] from Last 3 Months or Most Recently Relevant to Health Maintenance Insurance [facility] CAREPLUS DENTAL-[facility] MEDICAID STAND ADULT Care Teams Brand Analyst Relationship Specialty Start Date End Date Cora Jimenez MD [address] [place] [address] [phone] PCP - General Internal Medicine 07/17/23
--- OUTSIDE RECORDS SUMMARY | 2025-01-16 13:09 | XMS_ITS | Encounter Summary ---
Author Organization [employer] Address [address] [facility] 7t [place] [address] Care Team Providers Care Guest Service Representative Name Role Phone Cora Jimenez MD Primary Care Pro vider Encounter Details Date Type Department Care Team (Late st Contact Info) Description 06/10/2023 Abstract [facility] [address] [place], [place] [phone] Swati Villalpando Social History Tobacco Use Types [...] Description 06/05/2025 3:00 PM EDT Office Visit [facility] ADULT D[facility] [address] [place] [address] Vikram Hood documented as of this encounter Procedures Procedure Name Priority Date/Time Associated Diagnosis Comments PAP/HPV Routine 06/19/2021 documented in this encounter Results * Hm Pap Smear (06/19/2021) Pap Negative for intraephithelial lesion or malignancy Negative for intraephithelial lesion or malignancy, Other Historical Provider HEALTH MAINTENANCE Final Result documented in this encounter Visit Diagnoses Not on filedocumented in this encounter Care Teams Guest Service Representative Relationship Specialty Start Date End Date Cora Jimenez MD [address] [place] [phone] PCP - General Internal Medicine 07/17/23 documented as of this encounter
[2025-01-16 18:26] LABS: Bacterial Vaginosis PCR NEGATIVE (Negative); Candida Group PCR NOT DETECTED (Not Detect); Candida glab krusei PCR NOT DETECTED (Not Detect); Trichomonas vaginalis PCR NOT DETECTED (Not Detect)
[2025-01-16 19:00] LABS: CT PCR NOT DETECTED (Not Detect.); NG PCR NOT DETECTED (Not Detect.)
[2025-01-17 08:03] LABS: HBsAGNum1 0.31 S/CO (0.00-0.99); HIV AB/AG Nonreactive (Nonreactive); Hepatitis B Surface Antigen Negative (Negative); ~Hepatitis C Antibody Nonreactive (Nonreactive)
[2025-01-17 13:41] LABS: Syphilis Screen Nonreactive (Nonreactive)
== END 2025-01-16 12:51 | disposition home or self-care (01) ==
LOC: HO.LAB 12:50
PROVIDERS: Visit Provider Advanced Practice Midwife
DX: Z20.2 Contact with and (suspected) exposure to infections with a predominantly sexual mode of transmission (principal); Z97.5 Presence of (intrauterine) contraceptive device
CPT/HCPCS: 81515; 86780; 86803; 87340; 87389; 87491; 87591

== ENCOUNTER 2025-06-30 15:29 | Outpatient (REF) | payer OTHER, SELFPAY ==
--- OUTSIDE RECORDS SUMMARY | 2025-06-27 14:15 | XMS_ITS | Encounter Summary ---
Author Organization Boundary Address [address] [facility] [address] [place] [address] Care Team Providers Care Charging Operator Name Role Phone Cora Jimenez MD Primary Care Pro vider Reason for Referral * Imaging (Urgent) - Authorized Specialty Diagnoses / Procedures Referred By Fili t Referred To Contact Radiology Diagnoses Mass of upper outer quadrant of right breast Procedures BI US Breast Limited Right Josie Peñaloza CNM [address] [place] [address] Phone: tel: fax: [address] Phone: tel: fax: Referral ID Status Reason Start Date Expiration Date V isits Requested Visits Authorized [id number] Authorized 06/27/2025 06/27/2026 1 1 Reason for Visit * Reason Comments pap Encounter Details Date Type Department Care Team (Latest Contact Info) Description 06/27/2025 2:15 PM EDT Procedure Visit [facility] [address] [place], [place] [phone] Josie Peñaloza CNM [address], [place] [phone] Mass of upper outer quadrant of right [...] with others, in a hotel, in a penitentiary, living outside on the street, on a [...] in this encounter Progress Notes * Josie Peñaloza, SIOBHAN - 06/27/2025 2:15 PM EDT Subjective Patient ID: Diaz Field is a 24 y.o. female who presents for GUI DEVELOPER visit Pap NIL 06/2024. Pap NIL 06/2021. [...] SpO2 99% BMI 22.33 kg/m?? Physical Exam Fuse Assembler present: declines senior logistics manager. Constitutional: Appearance: Normal appearance. Chest: Breasts: Right: [...] Upcoming Encounters Date Type Department Care Team ([facility] st Contact Info) Description 12/05/2025 10:15 AM EDT Office Visit [facility] [address] [place] [address] Vikram Hood Scheduled Orders Name Type Priority Associated Diagnoses Orde r Schedule BI US Breast Limited Right Imaging Urgent Mass of upper outer quadrant of right breast Expected: 06/27/2025, Expires: 06/27/2026 documented as of this encounter Visit Diagnoses Diagnosis Mass of upper outer quadrant of right breast- Primary Checking of intrauterine device Labial cyst Other specified noninflammatory disorder of vulva and perineum documented in this encounter Additional Health Concerns Assessment Noted Time PHQ-9 Depression Total Score: 15 024 12:00 PM EDT documented as of this encounter Care Teams Charging Operator Relationship Specialty Start Date End Date Cora Jimenez MD [address] [place] [id number] PCP - General Internal Medicine 07/17/23 documented as of this encounter
--- OUTSIDE RECORDS SUMMARY | 2025-06-30 13:30 | XMS_ITS | Encounter Summary ---
Author Organization [employer] Address [address] [facility] 7t [place] [address] Care Team Providers Care Band Saw Operator Name Role Phone Cora Jimenez MD Primary Care Pro vider Reason for Referral * Imaging (Routine) - Authorized Specialty Diagnoses / Procedures Referred By Contleonela t Referred To Contact Radiology Diagnoses Left lower quadrant pain Procedures US Abdomen Complete Cora Jimenez MD [address] [place] [address] Phone: tel: fax: [address] Phone: tel: fax: Referral ID Status Reason Start Date Expiration Date V isits Requested Visits Authorized [id number] Authorized 06/30/2025 06/30/2026 1 1 Encounter Details Date Type Department Care Team (Late st Contact Info) Description 06/30/2025 1:30 PM EDT Office Visit [facility] MEDICINE [address] [place] [address] [phone] Cora Jimenez MD [address] [place] [address] [phone] Annual physical exam (Primary Dx); Left lower quadrant pain; Encounter for immunization Social History Tobacco Use Types Packs/Day Years [...] Author Not at all 06/30/2025 3:47 PM TIENT Renee Stewart MA * Thoughts that you would be better off or hurting yourself in some way Answer Date of Assessment Author Not at all 06/30/2025 3:47 PM TIENT Renee Stewart MA * Patient Health Questionnaire-9 Score Answer [...] Coto MA documented as of this encounter Plan of Treatment Upcoming Encounters Date Type Department Care Team (Late st Contact Info) Description 12/05/2025 10:15 AM EDT Office Visit [facility] [address] [place] [address] Vikram Hood Scheduled Orders Name Type Priority Associated Diagnoses Orde r Schedule Iron And Total Iron Binding Capacity Lab Routine Annual physical exam Expected: 06/30/2025 (Approximate), Expires: 06/30/2026 Ferritin Lab Routine Annual physical exam Expected: 06/30/2025 (Approximate), Expires: 06/30/2026 Chlamydia/Trichomonas/Neis seria gonorrhoeae, PCR, Urine Lab Routine Annual physical exam Ordered: 06/30/2025 Comprehensive Metabolic Panel Lab Routine Annual physical exam Expected: 06/30/2025 (Approximate), Expires: 06/30/2026 Hemoglobin A1c Lab Routine Annual physical exam Expected: 06/30/2025 (Approximate), Expires: 06/30/2026 Hepatitis B Core Antibody, Total Lab Routine Annual physical exam Expected: 06/30/2025 (Approximate), Expires: 06/30/2026 Hepatitis B Surface Antibody, Qualitative Lab Routine Annual physical exam Expected: 06/30/2025 (Approximate), Expires: 06/30/2026 Hepatitis B surface antigen, EIA Lab Routine Annual physical exam Expected: 06/30/2025 (Approximate), Expires: 06/30/2026 Hepatitis C Antibody with Reflex to HCV, RNA, Quantitative, Real-Time PCR Lab Routine Annual physical exam Expected: 06/30/2025 (Approximate), Expires: 06/30/2026 HIV-1/2 Antigen and Antibodies, Fourth Generation, with Reflexes Lab Routine Annual physical exam Expected: 06/30/2025 (Approximate), Expires: 06/30/2026 Syphilis Screen Lab Routine Annual physical exam Expected: 06/30/2025 (Approximate), Expires: 06/30/2026 TSH with Reflex to Free T4 Lab Routine Annual physical exam Expected: 06/30/2025 (Approximate), Expires: 06/30/2026 US Abdomen Complete Imaging Routine Left lower quadrant pain Expected: 06/30/2025, Expires: 06/30/2026 documented as of this encounter Procedures Procedure Name Priority Date/Time Associated Diagnosis Comments CBC WITH AUTO DIFFERENTIAL Routine 06/30/2025 3:34 PM EDT Annual physical exam documented in this encounter Results * CBC auto differential (06/30/2025 3:34 PM EDT) White Blood Count 7.0 4.8 - 10.8 X10*3/uL [facility] Red Blood Count 4.41 4.20 - 5.50 X10*6/uL [facility] Hemoglobin 12.8 12.0 - 16.0 g/dl [facility] Hematocrit 38.6 37.0 - 47.0 % [facility] Mean Corpuscular Volume 87.5 80.0 - 98.0 fL [facility] Mean Corpuscular Hemoglobin 29.0 27.0 - 33.0 pg [facility] Mean Corpuscular HGB Conc 33.2 31.0 - 35.0 g/dl [facility] Red Cell Distribution Width 13.0 11.0 - 16.0 % [facility] Platelet Count 237 160 - 400 X10*3/uL [facility] Mean Platelet Volume 11.1 9.4 - 12.3 fL [facility] Neutrophils Percent Auto 59.5 45 - 73 % [facility] Imm Gran Pct Auto 0.3 0.0 - 0.4 % [facility] Lymphocytes Percent Auto 32.9 20 - 40 % [facility] Monocytes Percent Auto 6.7 2 - 11 % [facility] Eosinophils Percent Auto 0.3 0 - 4 % [facility] Basophils Percent Auto 0.3 0 - 2 % [facility] NRBC Pct Auto 0.0 0.0 - 0.2 /100WBC [facility] Neutrophils Absolute Auto 4.2 2.0 - 8.3 x10*3/uL [facility] Imm Gran Abs Auto 0.02 0.00 - 0.03 X10*3/uL [facility] Lymphocytes Absolute Auto 2.3 1.2 - 4.9 X10*3/uL [facility] Monocytes Absolute Auto 0.5 0.1 - 1.2 X10*3/uL [facility] Eosinophils Absolute Auto 0.0 0.0 - 0.4 X10*3/uL [facility] Basophils Absolute Auto 0.0 0.0 - 0.2 X10*3/uL [facility] NRBC Abs Auto 0.000 0.0 - 0.012 X10*3/uL [facility] Blood Venous blood specimen / Unknown 06/30/2025 3:34 PM EDT 06/30/2025 4:07 PM EDT us Cora Pisano MD LAB BLOOD ORDERAB LES Final Result [facility] [address] [place] [phone] [phone] documented in this encounter Visit Diagnoses Diagnosis Annual physical exam- Primary Routine general medical examination at a health care facility Left lower quadrant pain Abdominal pain, left lower quadrant Encounter for immunization documented in this encounter Additional Health Concerns Assessment Noted Time PHQ-9 Depression Total Score: 8 06/30/20 25 3:47 PM EDT documented as of this encounter Care Teams Band Saw Operator Relationship Specialty Start Date End Date Cora Jimenez MD [address] [place] [address] PCP - General Internal Medicine 07/17/23 documented as of this encounter
[2025-06-30 16:11] LABS: MANUAL DIFF FLAG NO
[2025-06-30 16:15] LABS: Hematocrit 38.6 % (37.0-47.0); Hemoglobin 12.8 g/dl (12.0-16.0); Imm Gran Abs Auto 0.02 X10*3/uL (0.00-0.03); Imm Gran Pct Auto 0.3 % (0.0-0.4); Lymphocytes Absolute Auto 2.3 X10*3/uL (1.2-4.9); Mean Corpuscular HGB Conc 33.2 g/dl (31.0-35.0); Mean Corpuscular Hemoglobin 29.0 pg (27.0-33.0); Mean Corpuscular Volume 87.5 fL (80.0-98.0); NRBC Abs Auto 0.000 X10*3/uL (0.0-0.012); NRBC Pct Auto 0.0 /100WBC (0.0-0.2); Platelet Count 237 X10*3/uL (160-400); Red Blood Count 4.41 X10*6/uL (4.20-5.50); White Blood Count 7.0 X10*3/uL (4.8-10.8)
--- OUTSIDE RECORDS SUMMARY | 2025-06-30 16:58 | XMS_ITS | Encounter Summary ---
Author Organization [facility] Address [address] [facility] 7t [place] [address] Care Team Providers Care Manufacturing Team Member Name Role Phone Cora Jimenez MD Primary Care Pro vider Encounter Details Date Type Department Care Team (Latest Contact Info) Description 06/30/2025 Travel Social History Tobacco Use Types Packs/Day Years Used Date Smoking Tobacco: Never Smokeless Tobacco: Never Alcohol Use Standard Drinks/Week Comments Never 0 [...] with others, in a hotel, in a nursing home, living outside on the street, on a [...] AM EDT documented as of this encounter Functional Status * Over the [...] Assessment Author Several days 06/30/2025 3:47 PM TIENT Renee Stewart MA * Moving or speaking [...] Assessment Author Somewhat difficult 06/30/2025 3:47 PM EDT Cathie Stewart MA * Over the last [...] diff erent things 2 06/30/2025 3:47 PM EDT Cathie Stewart MA Trouble relaxing 2 06/30/2025 3:47 PM EDT Cathie Louis MA Being so restless that it is hard to sit still 1 06/30/2025 3:47 PM TIENT Cathie Stewart MA Becoming easily annoyed or irritable 3 06/30/2025 3:47 PM TIENT Cathie Stewart MA Feeling afraid as if somethi ng awful might happen 0 06/30/2025 3:47 PM EDT Cathie Stewart MA GUILLERMO-7 Total Score 11 06/30/2025 3:47 PM EDT Cathie Stewart MA documented as of this encounter Plan of Treatment Upcoming Encounters Date Type Department Care Team (Late st Contact Info) Description 12/05/2025 10:15 AM EDT Office Visit [facility] AD[facility] D[facility]AL [address] [place] [address] Vikram Hood documented as of this encounter Visit Diagnoses Not on filedocumented in this encounter Additional Health Concerns Assessment Noted Time PHQ-9 Depression Total Score: 8 06/30/20 25 3:47 PM EDT documented as of this encounter Care Teams Manufacturing Team Member Relationship Specialty Start Date End Date Cora Jimenez MD [address] [place] [phone] PCP - General Internal Medicine 07/17/23 documented as of this encounter
--- OUTSIDE RECORDS SUMMARY | 2025-06-30 16:58 | XMS_ITS | Clinical Summary ---
Author Organization [employer] Address [address] [facility] 7t [place] [address] Care Team Providers Care Lock Assembler Name Role Phone Cora Jimenez MD Primary Care Pro vider Allergies No known active allergies Medications * This document contains information received from the source organization and may not represent a complete record from that organization. Glycopyrronium Tosylate 2.4 % padsIndications: Hyperhidrosis of axilla Apply once daily 30 each 3 12/30/2024 Active escitalopram (Lexapro) 10 MG tablet Take 1 tablet (10 mg) by mouth Once per day. 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 Scalp lesion 06/29/2024 Chest discomfort 06/29/2024 Health care maintenance 06/19/2023 Depression 06/19/2023 Marijuana abuse 06/19/2023 Atopic dermatitis 06/11/2023 Seasonal allergic rhinitis 11/20/2015 Encounters Date Type Department Care Team Description 06/30/2025 1:30 PM EDT Office Visit [facility] MEDICINE [address] [place] [phone] Cora Jimenez MD Annual physical exam (Primary Dx); Left lower quadrant pain; Encounter for immunization 06/30/2025 Travel 06/29/2025 Telephone [facility] MED[facility] [address] [place] [address] Cora Jimenez MD chart prep 06/27/2025 2:15 PM EDT Procedure Visit [facility] MED[facility] [address] [place] [address] Josie Rodriguez CNM Mass of upper outer quadrant of right breast (Primary Dx); Checking of intrauterine device; Labial cyst 06/27/2025 Travel 06/26/2025 Travel 06/26/[address] [address] Josie Rodriguez CNM chart prep 06/23/2025 Patient Outreach [address] [phone] Cora Jimenez MD Care Coordination (CHW outreach for SDOH housing search-LVM ) 06/23/2025 Patient Outreach [address] [phone] Cora Jimenez MD Pre-visit Planning (SDOH Screening positive and Tobacco screening negative) 06/05/2025 3:00 PM EDT Office Visit [facility] ADULT DENTAL [address] [place] [address] Vikram Hood Dental calculus (Primary Dx) 06/05/[address] [phone] Cathie Stewart MA Appointment; Hepatic Disease 04/20/2025 Telephone [facility] [address] [place] [phone] Vannessa Sharma MA 04/20/2025 Telephone [facility] [address] [place] [phone] Vannessa Sharma MA June INSTRUMENT ENGINEER recall 04/17/[address] [address] Cora Jimenez MD oct recall from Last 3 Months Immunizations Immunization Administration Dates Next Due DTaP 12/04/2005, 2,10/08/2000,05/08,1999 HPV, Quadrivalent 10/18/2013,08/03/2012,07/29/20 11 Hep A, ped/adol, 2 dose 10/18/2013,06/24/2010 Hep B, Adolescent or Pediatric 10/08/2000,1999 Hib (HbOC) 01/05/2001,10/08/2000,05/08/2000 IPV 12/04/2005, 1,05/08/2000,11/05 Influenza injectable quadriv alent preservative free 06/18/2023,06/05/2016,12/06/2015 Influenza, IIV3, injectable 07/29/2011, 8 Influenza, Split (incl. katty fied surface antigen) 10/18/2013,08/03/2012 Influenza, seasonal, injecta ble, preservative free 06/30/2025 MMR 12/04/2005,01/05/2001 Meningococcal MCV4P ACYW-135 12/06/2015,08/03/20 12 [...] with others, in a hotel, in a halfway, living outside on the street, on a [...] Mass Index 22.37 06/30/2025 1:59 PM EDT Plan of Treatment Upcoming Encounters Date Type Department Care Team (Late st Contact Info) Description 12/05/2025 10:15 AM EDT Office Visit [facility] ADULT DENTAL [address] [place] [address] Vikram Hood Health Maintenance Due Date Last Done Comments Hepatitis B Vaccines (3 of 3 - 3-dose series) 12/03/2000 10/08/2000, 06/07/2000, 1999 COVID-19 Vaccine ( season) 2025 Dental Oral Exam 06/02/2025 11/29/2024, , 10/13/2017, Additional history exists Dental X-Ray: Bitewings 11/30/2025 11/30/19, 10/13/2017, 01/28/2016 Dental Prophylaxis 12/04/2025 06/05/2025, 0 11/29/2024, 04/19/2018, Additional history exists SDOH Screening 06/23/2026 06/23/2025 Disability Screening 06/26/2026 06/26/2025 Family Planning (PISQ) 06/27/2026 06/27/2025 Alcohol/Substance Use Screening 06/30/2026 06/30/2025 Depression Screening 06/30/2026 06/30/2025, 06/30/20 Tobacco Screening 06/30/2026 06/30/2025 Pap Smear 07/07/2027 07/07/2024, 06/19/2021 Dental X-Ray: [...] Years) and At-Risk Patients (6 to 49) Years Aged Out 04/07/2001, 02/05/2001 No longer eligibl e based on patient's age to complete this topic IPV Vaccines Completed 12/04/2005, 05/0 09/2000, 05/08/2000, Additional history exists HPV Vaccines Completed 10/18/2013, 07/09, 07/29/2011 Hepatitis A Vaccines Completed 10/18/2013, 06/24/20 10 Meningococcal Vaccine Completed 12/06/2015, 012 HIV Screening Completed 01/16/2025, 06/18/2023 Hepatitis C Screening Completed 01/16/2025, 023 Influenza Vaccine Completed 06/30/2025, , 06/05/2016, Additional history exists Meningococcal B Vaccine Aged Out No l onger eligible based on patient's age to complete this topic RSV under 20 months Aged Out No longe r eligible based on patient's age to complete this topic Rotavirus Vaccines Aged Out No longer eligible based on patient's age to complete this topic Procedures Procedure Name Priority Date/Time Associated Diagnosis Comments CBC WITH AUTO DIFFERENTIAL Routine 06/30/2025 3:34 PM EDT Annual physical exam ORAL HYGIENE INSTRUCTIONS Routine 06/05/2025 3:00 PM EDT CASE PRESENTATION, DETAILED AND EXTENSIVE TREATMENT PLANNING Routine 06/05/2025 3:00 PM EDT PROPHYLAXIS - ADULT Routine 06/05/2025 3 :00 PM EDT HEPATITIS C ANTIBODY Routine 01/16/2025 1:10 PM EDT HIV 1/2 ANTIGEN/ANTIBODY, FOURTH GENERATION W/RFL Routine 01/16/2025 1:10 PM EDT INTRAORAL - COMPLETE SERIES OF RADIOGRAPHIC IMAGES Routine 11/29/2024 8:00 AM EDT PERIODIC ORAL EVALUATION - ESTABLISHED PATIENT Routine 11/29/2024 8:00 AM EDT PAP SMEAR Routine 07/07/2024 10:56 AM EDT Cervical cancer screening from Last 3 Months or Most Recently Relevant to Health Maintenance Results * CBC auto differential (06/30/2025 3:34 PM EDT) White Blood Count 7.0 4.8 - 10.8 X10*3/uL [facility] Red Blood Count 4.41 4.20 - 5.50 X10*6/uL [facility] Hemoglobin 12.8 12.0 - 16.0 g/dl [facility] Hematocrit 38.6 37.0 - 47.0 % [facility] Mean Corpuscular Volume 87.5 80.0 - 98.0 fL [facility] Mean Corpuscular Hemoglobin 29.0 27.0 - 33.0 pg [facility] Mean Corpuscular HGB Conc 33.2 31.0 - 35.0 g/dl [facility] Red Cell Distribution Width 13.0 11.0 - 16.0 % [facility] Platelet Count 237 160 - 400 X10*3/uL [facility] Mean Platelet Volume 11.1 9.4 - 12.3 fL [facility] Neutrophils Percent Auto 59.5 45 - 73 % [facility] Imm Gran Pct Auto 0.3 0.0 - 0.4 % [facility] Lymphocytes Percent Auto 32.9 20 - 40 % [facility] Monocytes Percent Auto 6.7 2 - 11 % [facility] Eosinophils Percent Auto 0.3 0 - 4 % [facility] Basophils Percent Auto 0.3 0 - 2 % [facility] NRBC Pct Auto 0.0 0.0 - 0.2 /100WBC [facility] Neutrophils Absolute Auto 4.2 2.0 - 8.3 x10*3/uL [facility] Imm Gran Abs Auto 0.02 0.00 - 0.03 X10*3/uL [facility] Lymphocytes Absolute Auto 2.3 1.2 - 4.9 X10*3/uL [facility] Monocytes Absolute Auto 0.5 0.1 - 1.2 X10*3/uL [facility] Eosinophils Absolute Auto 0.0 0.0 - 0.4 X10*3/uL [facility] Basophils Absolute Auto 0.0 0.0 - 0.2 X10*3/uL [facility] NRBC Abs Auto 0.000 0.0 - 0.012 X10*3/uL [facility] Blood Venous blood specimen / Unknown 06/30/2025 3:34 PM EDT 06/30/2025 4:07 PM EDT us Cora Pisano MD LAB BLOOD ORDERAB LES Final Result Performing Organization Address City/[facility]/ZIP Co de Phone Number [facility] [address] [place] [phone] * Hepatitis C Ab (01/16/2025 1:10 PM EDT) Hepatitis C Antibody Nonreactive Nonreactive [facility] Comment:Antibodies to HCV no t detected; does not exclude early acuteHCV infection. 01/16/2025 1:10 PM EDT 01/16/2025 1:12 PM EDT us Generic External Data Provider LAB BLOOD ORDERAB LES Final Result Performing Organization Address [facility] Co de Phone Number [facility] [address] [place] [phone] * HIV-1/2 Antigen and Antibodies, Fourth Generation, with Reflexes (01/16/2025 1:10 PM EDT) Pathologist [facility] HIV AB/AG Nonreactive Nonreactive [facility] Comment:HIV-1 p24 Ag and/or HIV-1/HIV-2 Ab not detected.A test result that is nonreactive does not exclude thepossibility of exposure to or infection with HIV-1 and/orHIV-2. Nonreactive results in this assay for individualswith prior exposure to HIV-1 and/or HIV-2 may be due toantigen and antibody levels that are below the limit ofdetection of this assay.[employer] HIV Ag/Ab Combo assay result andsupplemental assay results should be interpreted inconjunction with the patient's clinical presentation,history and other laboratory results. If the results areinconsistent with clinical evidence, additional testing issuggested to confirm the result. 01/16/2025 1:10 PM EDT 01/16/2025 1:12 PM EDT us Generic External Data Provider LAB BLOOD ORDERAB LES Final Result [facility] [address] [place] [phone] * Pap Smear (07/07/2024 10:56 AM EDT) Swab 07/07/2024 10:5 6 AM EDT 07/08/2024 10:23 AM EDT Narrative [facility] - 07/19/2024 12:40 PM EST ----- ------- Name: Diaz Field Age/Sex: 23/F : 2000 Unit#: [id number] Attend Dr: JOSIE RODRIGUEZ CNM Re07/07/24 Status: DEP REF Location: HO.HHCLNP Disch: ----- ------- SPEC : [id number] RECD: 07/08/24 STATUS: RAY WICK NUM: [id number] AWILDA: 07/07/24-[address]: JOSIE RODRIGUEZ CNM ENTERED: 07/08/24 SP TYPE: Pap Smr OTHR DR: ORDERED: Pap Smear Addendum Addendum 1 Entered: 07/19/24 HPV High Risk: Negative HPV Genotyping 16: Negative HPV Genotyping 18: Negative Addendum Signed (signature on file) Vipin Jaime MD 07/19/241239 ----- ------- Interpretation Satisfactory for evaluation. No endocervical cells seen. Negative for intraepithelial lesion or malignancy. Clinical Information LMP: Unknown date Previous PAP test: Unknown date Material Received ThinPrep-Vaginal/Cervical ----- ------- Signed (signature on file) SANJAY Bonilla (ASCP) 07/11/241241 (signature on file) Vipin Jaime MD 07/19/241239 ----- ------- END OF REPORT Josie Rodriguez [facility] CYTOLOGY ORDERABLES F inal Result [facility] [address] [place] [phone] from Last 3 Months or Most Recently Relevant to Health Maintenance [place] [address] [place] [address] [place] Care Teams Lock Assembler Relationship Specialty Start Date End Date Cora Jimenez MD [address] [place] [phone] PCP - General Internal Medicine 07/17/23
--- OUTSIDE RECORDS SUMMARY | 2025-06-30 16:58 | XMS_ITS | Encounter Summary ---
Author Organization [employer] [facility] Address [address] [facility] [address] [place] [address] Care Team Providers Care Substation Operator Helper Name Role Phone Cora Jimenez MD Primary Care Pro vider Encounter Details Date Type Department Care Team (Late st Contact Info) Description 06/10/2023 Abstract [facility] MEDICINE [address] [place] [address] Swati Villalpando Social History Tobacco Use Types [...] Description 12/05/2025 10:15 AM EDT Office Visit [facility] ADULT DENTAL [address] [place] [address] Vikram Hood documented as of this encounter Procedures Procedure Name Priority Date/Time Associated Diagnosis Comments HM PAP/HPV Routine 06/19/2021 documented in this encounter Results * Hm Pap Smear (06/19/2021) Pap Negative for intraephithelial lesion or malignancy Negative for intraephithelial lesion or malignancy, Other us Historical Provider HEALTH MAINTENANCE Final Result documented in this encounter Visit Diagnoses Not on filedocumented in this encounter Care Teams Substation Operator Helper Relationship Specialty Start Date End Date Cora Jimenez MD [address] [place] [phone] PCP - General Internal Medicine 07/17/23 documented as of this encounter
--- OUTSIDE RECORDS SUMMARY | 2025-06-30 16:58 | XMS_ITS | Encounter Summary ---
Author Organization [employer] Address [address] [facility] [address] [place] [address] Care Team Providers Care Press Hand Name Role Phone Cora Jimenez MD Primary Care Pro vider Reason for Visit * Reason Onset Date Comments chart prep 06/26/2025 Encounter Details Date Type Department Care Team ([facility] st Contact Info) Description 06/26/2025 Telephone [facility] MEDICINE [address] [place] [address] Josie Peñaloza, TAMEKA [address] [place] [address] chart prep Social History Tobacco Use Types Packs/Day Years [...] with others, in a hotel, in a snf, living outside on the street, on a [...] AM EDT documented as of this encounter Miscellaneous Notes * Telephone Encounter - Jimbo Woodson MA - 06/26/2025 10:07 AM EDT Chart Prep Labs: not applicable Images: not applicable Referrals: not applicable Vaccines due: Covid, Flu, and Hep B Screenings: pap smear Overdue care gaps: Disability screen documented in this encounter Plan of Treatment Upcoming Encounters Date Type Department Care Team (Late st Contact Info) Description 12/05/2025 10:15 AM EDT Office Visit [facility] ADULT D[facility] [address] [place], [place] [phone] Vikram Hood documented as of this encounter Visit Diagnoses Not on filedocumented in this encounter Additional Health Concerns Assessment Noted Time PHQ-9 Depression Total Score: 15 024 12:00 PM EDT documented as of this encounter Care Teams Press Hand Relationship Specialty Start Date End Date Cora Jimenez MD [address] [place] [phone] PCP - General Internal Medicine 07/17/23 documented as of this encounter
--- OUTSIDE RECORDS SUMMARY | 2025-06-30 16:58 | XMS_ITS | Encounter Summary ---
Author Organization [employer] Address [address] [facility] [address]t [place] [address] Care Team Providers Care Cone Operator Name Role Phone Cora Jimenez MD Primary Care Pro vider Reason for Visit * Reason Onset Date Comments chart prep 06/29/2025 Encounter Details Date Type Department Care Team ([facility] st Contact Info) Description 06/29/2025 Telephone [facility] MED[facility]INE [address] [place] [address] Cora Jimenez MD [address] [place] [address] chart prep Social History Tobacco Use Types [...] the past 12 months, has t he Staff [employer]er, gas, oil or water company threatened to [...] encounter Miscellaneous Notes * Telephone Encounter - Cathie Stewart [place] - 06/29/2025 3:24 PM EDT Chart Prep Labs: done Images: US appointment 07/03/25 at 11 AM Screenings: Not Applicable Vaccines due: Covid Due, Hep B Due, and Flu Due Referrals: Not Applicable Overdue care gaps: Sbirt, PHQ9, and GAD7 documented in this encounter Plan of Treatment Upcoming Encounters Date Type Department Care Team (Late st Contact Info) Description 12/05/2025 10:15 AM EDT Office Visit [facility] [address] [place] [id number] Vikram Hood documented as of this encounter Visit Diagnoses Not on filedocumented in this encounter Additional Health Concerns Assessment Noted Time PHQ-9 Depression Total Score: 15 024 12:00 PM EDT documented as of this encounter Care Teams Cone Operator Relationship Specialty Start Date End Date Cora Jimenez MD [address] [place] [id number] PCP - General Internal Medicine 07/17/23 documented as of this encounter
--- OUTSIDE RECORDS SUMMARY | 2025-06-30 16:58 | XMS_ITS | Data Portability ---
Author Organization [facility], [address] Address [address] [place] [address] Assessment No assessment recorded. Plan of Treatment Reminders Order Date Submit Date Provider Last Modified By Organization Details Last Modified Time Details Appointments None record ed. Lab None record ed. Referral None record ed. Procedures None record ed. Surgeries None record ed. Imaging None record ed. Medication Orders None record ed. Patient TargetsNo targets recorded. Patient InstructionsNo instructions recorded. Reason for Referral None Reported. Procedures Surgical History Date Name Laterality Status Provider Name and Address Organization Details Recorded Time UDS Send Out Template completed [facility] 04/28/2024 13:01:23 Imaging Results None recorded. Procedure Notes None recorded. Medical Equipment None Reported. Medications Name Sig Start Date Stop Date Status Note LastModified by Organization Details LastModified Time metronidazol e 0.75 % (37.5 mg/5 gram) vaginal gel INSERT 1 APPLICATORF UL VAGINALLY EVERY DAY FOR 5 DAYS active Not Available Not Available N ot Available nitrofuranto in monohydrate/ macrocrystal s 100 mg capsule TAKE 1 CAPSULE BY MOUTH TWICE DAILY FOR 7 DAYS WITH A MEAL / FOOD active Not Available Not Available Not Available Vitals None Recorded Social History None recorded. Functional Status None recorded. Mental Status None recorded. Family History Nothing Reported. Medical History No medical history recorded. Gynecological HistoryNo gynecological history recorded. Obstetrics History GPAL:G 0 P 0 0 0 0 Past Encounters Encounter ID Performer Location Encounter Start Date Encounter Closed Date Diagnosis/Indication Diagnosis SNOMED-CT Code Diagnosis ICD10 Code Diagnosis IMO Codes Diagnosis Note [id number] [facility] [address] [address] [place] [address] 04/28/2024 12:41:43 04/28/2024 13:15:53 History and physical examination, occupation 847588028 Z02.1 Health Concerns Section Related Observation LastModified by Organization Detai ls LastModified Time None Recorded Concern Status LastModified by Organization Details LastModified Time None Recorded Advance Directives Directive None Recorded Payers Insurance Date Sequence Insurance Name Policy Number Policy Valente Covered Member ID Valente Member ID Guarantor Name 04/29/2024 OC-ESCREEN Anaisha Field [id number] Anaisha Field 04/28/2024 PAY AT TOS Anaisha Field FIRST ADVANTAGE DONNIE FIRST ADVANTAGE DONNIE Anaisha Field 04/28/2024 OC-PAY AT TIME OF SERVICE 2022 Anaisha Field FIRST ADVANTAGE DONNIE FIRST ADVANTAGE DONNIE Anaisha Field OBGyn Episode No OBEpisode recorded.
--- OUTSIDE RECORDS SUMMARY | 2025-06-30 16:58 | XMS_ITS | Encounter Summary ---
Author Organization [employer] Address [address] [facility] [address] [place] [address] Care Team Providers Care Class A Regional Truck Driver Name Role Phone Cora Jimenez MD Primary Care Pro vider Encounter Details Date Type Department Care Team (Latest Contact Info) Description 06/26/2025 Travel Social History Tobacco Use Types Packs/Day [...] with others, in a hotel, in a fdc, living outside on the street, on a [...] Description 12/05/2025 10:15 AM EDT Office Visit [facility] [address] [place] [address] Vikram Hood documented as of this encounter Visit Diagnoses Not on filedocumented in this encounter Additional Health Concerns Assessment Noted Time PHQ-9 Depression Total Score: 15 024 12:00 PM EDT documented as of this encounter Care Teams Class A Regional Truck Driver Relationship Specialty Start Date End Date Cora Jimenez MD [address] [place] [id number] PCP - General Internal Medicine 07/17/23 documented as of this encounter
--- OUTSIDE RECORDS SUMMARY | 2025-06-30 16:58 | XMS_ITS | Encounter Summary ---
Author Organization [employer] Address [address] [facility] [address]t [place] [address] Care Team Providers Care Hand Ii Cutter Name Role Phone Cora Jimenez MD Primary Care Pro vider Encounter Details Date Type Department Care Team (Latest Contact Info) Description 06/27/2025 Travel Social History Tobacco Use Types Packs/Day [...] with others, in a hotel, in a senior living, living outside on the street, on a [...] [facility] [address] [place] [address] Vikram Hood documented as of this encounter Visit Diagnoses Not on filedocumented in this encounter Additional Health Concerns Assessment Noted Time PHQ-9 Depression Total Score: 15 024 12:00 PM EDT documented as of this encounter Care Teams Hand Ii Cutter Relationship Specialty Start Date End Date Cora Jimenez MD [address] [place] [phone] PCP - General Internal Medicine 07/17/23 documented as of this encounter
[2025-06-30 18:49] LABS: Alanine Aminotransferase 21 U/L (0-31); Albumin Level 5.1 g/dL (3.5-5.0); Alkaline Phosphatase 47 U/L (39-117); Anion Gap 12 (12-20); Aspartate Amino Transferase 25 U/L (5-31); Blood Urea Nitrogen 10 mg/dL (9-16); Calcium 9.4 mg/dL (8.4-10.2); Carbon Dioxide 26 mmol/L (22-29); Chloride 108 mmol/L (96-108); Estimated Glomerular Filt Rate > 60; Iron 145 mcg/dL (30-160); Percent Iron Saturation 61 % (15-50); Potassium 3.7 mmol/L (3.3-5.1); Sodium 142 mmol/L (135-145); Total Iron Binding Capacity 238 mcg/dL (228-428); Total Protein 7.2 g/dL (6.5-8.0); Unsaturated Iron Binding 93 ug/dL
[2025-06-30 19:09] LABS: Ferritin 103 ng/mL (10-122)
[2025-07-01 03:34] LABS: Syphilis Screen Nonreactive (Nonreactive)
[2025-07-01 03:38] LABS: CT PCR Urine NOT DETECTED (Not Detect.); NG PCR Urine NOT DETECTED (Not Detect.)
[2025-07-01 04:28] LABS: HBS Num1 14.21 mIU/mL (0-7.99); HBc Num1 0.07 S/CO (0.00-0.79); HBsAGNum1 0.38 S/CO (0.00-0.99); HIV Num 1 0.07 S/CO (0.00-0.99); Hepatitis B Surface Antigen Negative (Negative); ~HepC Num1 0.09 S/CO (0.00-0.79); ~Hepatitis B Surface Antibody REACTIVE (Nonreactive); ~Hepatitis C Antibody Nonreactive (Nonreactive)
== END 2025-06-30 15:30 | disposition home or self-care (01) ==
LOC: HO.HHCL 15:29
PROVIDERS: PCP Student in an Organized Health Care Education/Training Program; Visit Provider Student in an Organized Health Care Education/Training Program
DX: Z00.00 Encounter for general adult medical examination without abnormal findings (principal); Z11.4 Encounter for screening for human immunodeficiency virus [HIV]; Z11.59 Encounter for screening for other viral diseases; Z20.2 Contact with and (suspected) exposure to infections with a predominantly sexual mode of transmission
CPT/HCPCS: 80053; 82728; 83036; 83540; 84443; 85025; 86704; 86706; 86780; 86803; 87340; 87389; 87491; 87591

== ENCOUNTER → 2025-07-03 11:00 | Outpatient (BNV) | payer OTHER, SELFPAY | PROVIDERS: PCP Student in an Organized Health Care Education/Training Program; Visit Provider Radiology Body Imaging | DX: N63.11 Unspecified lump in the right breast, upper outer quadrant (principal) | CPT/HCPCS: 76642 ==

== ENCOUNTER 2025-07-03 11:07 | Outpatient (REF) | payer OTHER, SELFPAY ==
--- OUTSIDE RECORDS SUMMARY | 2025-06-27 14:15 | XMS_ITS | Encounter Summary ---
Author Organization [employer] Address [address] [facility] 7t [place] [address] Care Team Providers Care Chief Of Party Name Role Phone Cora Jimenez MD Primary Care Pro vider Reason for Referral * Imaging (Urgent) - Authorized Specialty Diagnoses / Procedures Referred By Fili t Referred To Contact Radiology Diagnoses Mass of upper outer quadrant of right breast Procedures BI US Breast Limited Right Josie Rodriguez CNM [address] [place] [address] Phone: tel: fax: [address] Phone: tel: fax: Referral ID Status Reason Start Date Expiration Date V isits Requested Visits Authorized [id number] Authorized 06/27/2025 06/27/2026 1 1 Reason for Visit * Reason Comments pap Encounter Details Date Type Department Care Team (Latest Contact Info) Description 06/27/2025 2:15 PM EDT Procedure Visit [facility] [address] [place], [place] [phone] Josie Rodriguez CNM [address] [place], [place] [phone] Mass of upper outer quadrant of right breast (Primary Dx); Checking of intrauterine device; Labial cyst Social History Tobacco Use Types Packs/Day Years [...] What is your housing situation today? I do not have housing (Staying with others, in a hotel, in a mcc, living outside on the street, on a beach, in a car, or in a park 06/23/[address] you li ve. Do you have problems with any of the following? None of the above 06/23/2025 Food Insecurity Answer Date Recorded Within the past 12 months, y ou worried that your food would run out before you got money to buy more: Never True 06/23/2025 Within the past 12 months,th e food you bought just didn't last and you didn't have enough money to get more: Never True Transportation Answer Date Recorded In the past 12 months, has l ack of transportation kept you from medical appts, meetings, work or from getting things needed for daily living? No 06/23/2025 Utilities Answer Date Recorded In the past 12 months, has t he electric, gas, oil or water company threatened to shut off services in your home? No 06/23/2025 Depression Answer Date Recorded Patient Health Questionnaire-2 Score 4 06/28/2024 Internet Access Answer Date Recorded Internet Access Q1 Yes 06/23/2025 Internet Access Q2 Not on file 06/23/2025 Comments No Intention Date Recorded No desire to become (finding) 1 Sex and Gender Information Value Date Recorded Sex Assigned at Female 07/07/2022 10:18 AM EDT Legal Sex Female 10:18 AM EDT Gender Identity Female 07/07/2022 10:18 AM EDT Sexual Orientation Straight 07/07/2022 10 :18 AM EDT documented as of this encounter Last Filed Vital Signs Vital Sign Reading Time Taken Comments Blood Pressure 106/70 06/27/2025 2:44 PM EDT Pulse 89 06/27/2025 2:44 PM EDT Temperature 36.4 C (97.5 F) 06/27/2025 2:44 PM EDT Respiratory Rate 14 06/27/2025 2:44 PM EDT Oxygen Saturation 99% 06/27/2025 2:44 PM EDT Inhaled Oxygen Concentration - - Weight 53.6 kg (118 lb 3.2 oz) 06/27/2025 2:44 P M EDT Height - - Body Mass Index 22.33 12/30/2024 2:47 PM EDT documented in this encounter Progress Notes * Josie Rodriguez, SIOBHAN - 06/27/2025 2:15 PM EDT Subjective Patient ID: Diaz Field is a 24 y.o. female who presents for CURRICULUM AND ASSESSMENT DIRECTOR visit Pap NIL 06/2024. Pap NIL 06/2021. Received HPV and HBV vaccines. Mirena inserted 07/2023. Treated for trichomonas earlier this year. Retest negative 01/2025. Gonorrhea/Chlamydia/trichomonas, HIV, syphilis and Hep C negative 01/2025. 1 AMAB partner x 3 months, no safety concerns. Declines STI testing today as they both got tested before having sex together. Happy with IUD, not planning in the next year. Infrequent/light menses. Notes right breast mass that comes and goes, doesn't seem to be cyclical/monthly. No other breast symptoms. Noted right labial mass that she squeezed, didn't fully resolve. Would like breast and pelvic exam today. Review of Systems Genitourinary: Negative for dyspareunia, dysuria, frequency, genital sores, hematuria, menstrual problem, pelvic pain, urgency, vaginal bleeding, vaginal discharge and vaginal pain. No abnormal pap, no abnormal bleeding, no nipple discharge Objective BP 106/70 (BP Location: Left arm, Patient Position: Sitting, BP Cuff Size: Adult) Pulse 89 Temp97.5 ??F (36.4 ??C) (Oral) Resp 14 Wt 118 lb 3.2 oz (53.6 kg) LMP (LMP Unknown) SpO2 99% BMI 22.33 kg/m?? Physical Exam Steam Clothes Press Operator present: declines gastrointestinal technician. Constitutional: Appearance: Normal appearance. Chest: Breasts: Right: Mass and tenderness present. No swelling, bleeding, inverted nipple, nipple discharge or skin change. Left: Normal. No swelling, bleeding, inverted nipple, mass, nipple discharge, skin change or tenderness. Comments: Cystic tender mobile mass across right breast, upper outer quadrant, distinct from same area on left breast. Genitourinary: General: Normal vulva. Labia: Right: No rash, tenderness, lesion or injury. Left: No rash, tenderness, lesion or injury. Vagina: Normal. No signs of injury and foreign body. No vaginal discharge, erythema, tenderness, bleeding or lesions. Cervix: No cervical motion tenderness, discharge, friability, lesion, erythema, cervical bleeding or eversion. Uterus: Normal. Not enlarged and not tender. Adnexa: Right adnexa normal and left adnexa normal. Right: No mass, tenderness or fullness. Left: No mass, tenderness or fullness. Comments: IUD strings noted. Body of IUD nonpalpable BB sized mass under skin right labia majora near inner thigh, no redness, streaking or exudate. Lymphadenopathy: Upper Body: Right upper body: No supraclavicular or axillary adenopathy. Left upper body: No supraclavicular or axillary adenopathy. Neurological: Mental Status: She is alert. Psychiatric: Mood and Affect: Mood normal. Behavior: Behavior normal. Assessment/Plan Diagnoses and all orders for this visit: Mass of upper outer quadrant of right breast - BI US Breast Limited Right; Future Breast ultrasound as ordered. Will contact with results and plan. Let me know if not contacted about appointment in next week. Checking of intrauterine device Benign pelvic exam, happy with method. Remove/replace by 8 years from insertion, any time before then if desired. Labial cyst Avoid picking/squeezing. Use hot compresses for next week. Seek care if increased size, pain or redness. Should resolve on its own. documented in this encounter Plan of Treatment Upcoming Encounters Date Type Department Care Team ([facility] st Contact Info) Description 12/05/2025 10:15 AM EDT [facility] [address] [place] [address] Vikram Hood documented as of this encounter Procedures Procedure Name Priority Date/Time Associated Diagnosis Comments BI US BREAST LIMITED RIGHT Urgent 07/03/2025 11:15 AM EDT Mass of upper outer quadrant of right breast documented in this encounter Results * BI US Breast Limited Right (07/03/2025 11:15 AM EDT) Anatomical Region Laterality Modality Breast Right Ultrasound 07/03/2025 11:1 5 AM EDT Narrative 07/03/2025 11:45 AM EDT [facility] [address] [place] [address] Ultrasound Report Signed Patient: Diaz Field MR#: [id number] : 2000 Acct:[id number] Age/Sex: 24 / F ADM Date: 07/03/25 Loc: [facility] Attending Dr: Cora Pisano MD Ordering Physician: JOSIE RODRIGUEZ CNM Date of Service: 07/03/25 Procedure(s): US Breast RT Limited Mamm Only Accession Number(s): [id number] cc: Cora Jimenez MD; JOSIE RODRIGUEZ CNM Reason for Exam: cystic mass right breast upper outer quadrant EXAMINATION: US DIAGNOSTIC ULTRASOUND BREAST, RIGHT CLINICAL INFORMATION: Right breast 8-10 o'clock area of lump and pinching sensation, similar as in the prior study. COMPARISON: Right breast ultrasound on June 19, 2022 FINDINGS: Targeted ultrasound of the right breast was performed at the location of the clinical concern. The survey centered along the 8:00-10:00 axis did not reveal suspicious sonographic findings. Results are provided to the patient at time of visit by the technologist. US/US Breast RT Limited Mamm Only IMPRESSION: Right breast: Negative, no evidence of malignancy. No suspicious sonographic findings to accounts for patient's palpable concern. Clinical follow-up is recommended, independent of imaging findings. ASSESSMENT: Category 1: Negative Electronically signed by: Dexter Magana MD 07/03/2025 11:41 AM EDT Dictated By: Dexter Magana MD Signed By: <Electronically signed by Dexter Magana MD in OV> 07/03/25 1141 DD/ 1115 TD/TT: 07/03/25 1127 Disciplinary Hearing Officer: Procedure Note Ritater, Image - 07/03/2025 [facility] [address] [place], [place] [address] Ultrasound Report Signed Patient: Diaz Field [facility]#: [id number] : 2000Acct:[id number] Age/Sex: FADM Date: 07/03/25 Loc: SUSIE Attending Dr: Cora Pisano MD Ordering Physician: JOSIE RODRIGUEZ CNM Date of Service: 07/03/25 Procedure(s): US Breast RT Limited Mamm Only Accession Number(s): [id number] cc: Cora Jimenez MD; JOSIE RODRIGUEZ CNM Reason for Exam: cystic mass right breast upper outer quadrant EXAMINATION: US DIAGNOSTIC ULTRASOUND BREAST, RIGHT CLINICAL INFORMATION: Right breast 8-10 o'clock area of lump and pinching sensation, similar as in the prior study. COMPARISON: Right breast ultrasound on June 19, 2022 FINDINGS: Targeted ultrasound of the right breast was performed at the location of the clinical concern. The survey centered along the 8:00-10:00 axis did not reveal suspicious sonographic findings. Results are provided to the patient at time of visit by the technologist. US/US Breast RT Limited Mamm Only IMPRESSION: Right breast: Negative, no evidence of malignancy. No suspicious sonographic findings to accounts for patient's palpable concern. Clinical follow-up is recommended, independent of imaging findings. ASSESSMENT: Category 1: Negative Electronically signed by: Dexter Magana MD 07/03/2025 11:41 AM EDT Dictated By: Dexter Magana MD Signed By: <Electronically signed by Dexter Magana MD in OV> 07/03/25 1141 DD/ 1115 TD/TT: 07/03/25 1127 Disciplinary Hearing Officer: us Josie Rodriguez CNM IMG US PROCEDURES Edited Result - Final documented in this encounter Visit Diagnoses Diagnosis Mass of upper outer quadrant of right breast- Primary Checking of intrauterine device Labial cyst Other specified noninflammatory disorder of vulva and perineum documented in this encounter Additional Health Concerns Assessment Noted Time PHQ-9 Depression Total Score: 15 024 12:00 PM EDT documented as of this encounter Care Teams Chief Of Party Relationship Specialty Start Date End Date Cora Jimenez MD [address] [place] [phone] PCP - General Internal Medicine 07/17/23 documented as of this encounter
--- OUTSIDE RECORDS SUMMARY | 2025-06-30 13:30 | XMS_ITS | Encounter Summary ---
Author Organization [employer] Address [address] [facility] [address] [place] [address] Care Team Providers Care Human Resource Intern Name Role Phone Cora Jimenez MD Primary Care Pro vider Reason for Referral * Imaging (Routine) - Authorized Specialty Diagnoses / Procedures Referred By Contac t Referred To Contact Radiology Diagnoses Left lower quadrant pain Procedures US Abdomen Complete Cora Jimenez MD [address] [place] [address] Phone: tel: fax: [address] Phone: tel: fax: Referral ID Status Reason Start Date Expiration Date V isits Requested Visits Authorized [id number] Authorized 06/30/2025 06/30/2026 1 1 Encounter Details Date Type Department Care Team (Late st Contact Info) Description 06/30/2025 1:30 PM EDT Office Visit [facility] [address] [place] [address] [phone] Cora Jimenez MD [address] [place] [address] [phone] Annual physical exam (Primary Dx); Left lower quadrant pain; Encounter for immunization; Health care maintenance; Depression, unspecified depression type; Axillary hyperhidrosis; Left upper quadrant abdominal pain Social History Tobacco Use Types Packs/Day Years [...] Answer Date Recorded Patient Health Questionnaire-9 Score 8 06/30/2025 Patient Health Questionnaire-9 Score 8 06/30/2025 Last PHQ-9: Questionnaire Data Not on file 1 Housing Stability Answer Date Recorded What is your housing situation today? I do not have housing (Staying with others, in a hotel, in a fpc, living outside on the street, on a [...] Answer Date Recorded Patient Health Questionnaire-2 Score 2 06/30/2025 Internet Access Answer Date Recorded Internet Access Q1 Yes 06/23/2025 Internet Access Q2 Not on file 06/23/2025 Comments No Sex and Gender Information Value Date Recorded Sex Assigned at Female 07/07/2022 10:18 AM EDT Legal Sex Female 10:18 AM EDT Gender Identity Female 07/07/2022 10:18 AM EDT Sexual Orientation Straight 07/07/2022 10 :18 AM EDT documented as of this encounter Last Filed Vital Signs Vital Sign Reading Time Taken Comments Blood Pressure 108/54 06/30/2025 1:59 PM EDT Pulse 67 06/30/2025 1:59 PM EDT Temperature 36.4 C (97.5 F) 06/30/2025 1:59 PM EDT Respiratory Rate 20 06/30/2025 1:59 PM EDT Oxygen Saturation 99% 06/30/2025 1:59 PM EDT Inhaled Oxygen Concentration - - Weight 53.7 kg (118 lb 6.4 oz) 06/30/2025 1:59 P M EDT Height 154.9 cm (5' 1 ) 06/30/2025 1:59 PM EDT Body Mass Index 22.37 06/30/2025 1:59 PM EDT documented in this encounter Functional Status * Over the past 2 weeks, how often have you been bothered by any of the following problems? Question Answer Date of Assessment Author Patient Health Questionnaire -2 Score 2 06/30/2025 3:47 PM EDT Cathie Stewart MA * Little interest or pleasure in doing things Answer Date of Assessment Author Several days 06/30/2025 3:47 PM EDT Renee Stewart MA * Feeling down, depressed, or hopeless Answer Date of Assessment Author Several days 06/30/2025 3:47 PM EDT Renee Stewart MA * Trouble falling or staying asleep, or sleeping too much Answer Date of Assessment Author Not at all 06/30/2025 3:47 PM EDT Renee Stewart MA * Feeling tired or having little energy Answer Date of Assessment Author More than half the days 06/30/2025 3:47 PM EDT Cathie Louis MA * Poor appetite or overeating Answer Date of Assessment Author More than half the days 06/30/2025 3:47 PM EDT Cathie Louis MA * Feeling bad about yourself - or that you are a failure or have let yourself or your family down Answer Date of Assessment Author Several days 06/30/2025 3:47 PM EDT Renee Stewart MA * Trouble concentrating on things, such as reading the newspaper or watching television Answer Date of Assessment Author Several days 06/30/2025 3:47 PM EDT Renee Stewart MA * Moving or speaking so slowly that other people could have noticed? Or the opposite - being so fidgety or restless that you have been moving around a lot more than usual. Answer Date of Assessment Author Not at all 06/30/2025 3:47 PM Renee Coto MA * Thoughts that you would be better off or hurting yourself in some way Answer Date of Assessment Author Not at all 06/30/2025 3:47 PM Renee Coto MA * Patient Health Questionnaire-9 Score Answer Date of Assessment Author 8 06/30/2025 3:47 PM TIENT Renee Stewart MA * How difficult have these problems made it for you to do your work, take care of things at home, or get along with other people? Answer Date of Assessment Author Somewhat difficult 06/30/2025 3:47 PM TIENT Cathie Stewart MA * Over the last 2 weeks, how often have you been bothered by any of the following problems? Question Answer Date of Assessment Author Feeling nervous, anxious, or on edge 1 06/30/2025 3:47 PM EDT Cathie Stewart MA Not being able to stop or co ntrol worrying 2 06/30/2025 3:47 PM TIENT Cathie Stewart MA Worrying too much about diff erent things 2 06/30/2025 3:47 PM TIENT Cathie Stewart MA Trouble relaxing 2 06/30/2025 3:47 PM EDT Cathie Louis MA Being so restless that it is hard to sit still 1 06/30/2025 3:47 PM TIENT Cathie Stewart MA Becoming easily annoyed or irritable 3 06/30/2025 3:47 PM TIENT Cathie Stewart MA Feeling afraid as if somethi ng awful might happen 0 06/30/2025 3:47 PM Cathie Coto MA GUILLERMO-7 Total Score 11 06/30/2025 3:47 PM Cathie Coto MA documented as of this encounter Progress Notes * Cora Pisano MD - 06/30/2025 1:30 PM EDT Subjective Patient ID: Diaz Field is a 24 y.o. female who presents for Annual exam HPI 24 y o F Kenyan speaker w PMX of mild depression Comes for annual exam ,lost care here -reports having for past 2 y episodes of left side abdominal pain seems described more upper ,states usually with activity . States there was a times that had epigastric pain but not any longer ,denies any epigastric burning pain ,denies GERD,denies associated w N/V/D/C ,denies symptoms ---- -LMP: 06/20/2025 ------ Assessment and Plan: Health care maintenance -Annual exam done 06/2025 -Contraception: IUD placed on 08/2023 -Pap smear 06/2024 Neg/HPV Neg-- Repeat in 3 y w Josie Siu -Vaccines S/p hep pAx2, hepBx2-Immune ,HPVx3,meninococcal vaccinex2, MMRx2, Tdap 2022 , Varicella x2, COVID 19 none -refuse booster today..Flu vaccine today in office ----- -labs x annual exam today pt agreed to have STI testing including HIV to have for baseline ---will call pt w results --- F w [facility] to get help for housing -refuse today CM referral here Mild depression -PHQ9: 8<--15<----2 , GUILLERMO 11<-- 14 no SI , no ken no hallucinations history of antidepressants use but can not recall ,denies SE Marijuana couple times aday advised to decrease -BH referred today for further eval seen by Leigh Ann villalobos and for psychoTx referral as OP -start Lexapro start 5 mg 1 week then to increase to 10 mg daily 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 States there was a times that had epigastric pain but not any longer ,denies any epigastric burning pain ,denies GERD,denies associated w N/V/D/C ,denies symptoms Normal exam -Given chronicity of symptoms will start evaluation w abdominal US Review of Systems Constitutional: Negative. Negative for chills, fatigue and fever. HENT: Negative. Eyes: Negative. Respiratory: Negative. Cardiovascular: Negative. Gastrointestinal: Positive for abdominal pain. Genitourinary: Negative. Musculoskeletal: Negative. Skin: Axillary hyperhidrosis Neurological: Negative. Hematological: Negative. Psychiatric/Behavioral: Positive for behavioral problems. Negative for suicidal ideas. The patient is nervous/anxious. Objective BP 108/54 (BP Location: Left arm, Patient Position: Sitting, BP Cuff Size: Adult) Pulse 67 Temp97.5 ??F (36.4 ??C) (Temporal) Resp 20 Ht 5' 1 (1.549 m) Wt 118 lb 6.4 oz (53.7 kg) LMP 06/20/2025 (Approximate) SpO2 99% BMI 22.37 kg/m?? Physical Exam Vitals reviewed. Constitutional: Appearance: Normal appearance. HENT: Head: Normocephalic and atraumatic. Right Ear: Tympanic membrane and ear canal normal. Left Ear: Tympanic membrane and ear canal normal. Mouth/Throat: Mouth: Mucous membranes are moist. Pharynx: Oropharynx is clear. Eyes: Extraocular Movements: Extraocular movements intact. Pupils: Pupils are equal, round, and reactive to light. Cardiovascular: Rate and Rhythm: Normal rate and regular rhythm. Heart sounds: Normal heart sounds. No murmur heard. Pulmonary: Effort: Pulmonary effort is normal. Breath sounds: Normal breath sounds. Abdominal: General: Abdomen is flat. Bowel sounds are normal. There is no distension. Palpations: Abdomen is soft. There is no mass. Tenderness: There is no abdominal tenderness. There is no guarding or rebound. Musculoskeletal: General: Normal range of motion. Cervical back: Normal range of motion and neck supple. Skin: General: Skin is warm. Neurological: General: No focal deficit present. Mental Status: She is alert and oriented to person, place, and time. Mental status is at baseline. Psychiatric: Mood and Affect: Mood normal. Behavior: Behavior normal. Assessment/Plan Problem List Items Addressed This Visit Health care maintenance Depression Relevant Medications escitalopram (Lexapro) 10 MG tablet Axillary hyperhidrosis Abdominal pain Other Visit Diagnoses Annual physical exam - Primary Relevant Orders CBC auto differential (Completed) Iron And Total Iron Binding Capacity (Completed) Ferritin (Completed) Chlamydia/Trichomonas/Neisseria gonorrhoeae, PCR, Urine Comprehensive Metabolic Panel (Completed) Hemoglobin A1c (Completed) Hepatitis B Core Antibody, Total Hepatitis B Surface Antibody, Qualitative Hepatitis B surface antigen, EIA Hepatitis C Antibody with Reflex to HCV, RNA, Quantitative, Real-Time PCR HIV-1/2 Antigen and Antibodies, Fourth Generation, with Reflexes Syphilis Screen TSH with Reflex to Free T4 (Completed) Left lower quadrant pain Relevant Orders US Abdomen Complete Encounter for immunization Relevant Orders FLU VACCINE TRIVALENT (Fluarix) 19 yrs + (Completed) documented in this encounter Plan of Treatment Upcoming Encounters Date Type Department Care Team (Late st Contact Info) Description 12/05/2025 10:15 AM EDT Office Visit [facility] [address] [place] [address] Vikram Hood Scheduled Orders Name Type Priority Associated Diagnoses Orde r Schedule US Abdomen Complete Imaging Routine Left lower quadrant pain Expected: 06/30/2025, Expires: 06/30/2026 documented as of this encounter Procedures Procedure Name Priority Date/Time Associated Diagnosis Comments SYPHILIS SCREEN Routine 06/30/2025 3:34 PM EDT Annual physical exam TSH W/REFLEX TO FT4 Routine 06/30/2025 3 :34 PM EDT Annual physical exam CBC WITH AUTO DIFFERENTIAL Routine 06/30/2025 3:34 PM EDT Annual physical exam HEPATITIS C AB W/REFL TO HCV RNA, QN, PCR Routine 06/30/2025 3:34 PM EDT Annual physical exam IRON AND TOTAL IRON BINDING CAPACITY Routine 06/30/2025 3:34 PM EDT Annual physical exam HEPATITIS B SURFACE ANTIGEN, EIA Routine 06/30/2025 3:34 PM EDT Annual physical exam HEPATITIS B CORE AB TOTAL Routine 06/30/2025 3:34 PM EDT Annual physical exam HIV 1/2 ANTIGEN/ANTIBODY, FOURTH GENERATION W/RFL Routine 06/30/2025 3:34 PM EDT Annual physical exam HEPATITIS B SURFACE ANTIBODY, QUALITATIVE Routine 06/30/2025 3:34 PM EDT Annual physical exam HEMOGLOBIN A1C Routine 06/30/2025 3:34 PM EDT Annual physical exam FERRITIN Routine 06/30/2025 3:34 PM EDT Annual physical exam COMPREHENSIVE METABOLIC PANEL Routine 06/30/2025 3:34 PM EDT Annual physical exam CHLAMYDIA/TRICHOMONAS/ NEISSERIA GONORRHOEAE, PCR, URINE Routine 06/30/2025 1:34 PM EDT Annual physical exam documented in this encounter Results * TSH with Reflex to Free T4 (06/30/2025 3:34 PM EDT) TSH reflex Free T4 0.53 0.32 - 4.0 uIU/mL [facility] Blood 06/30/2025 3:34 PM EDT 06/30/2025 6:18 PM EDT us Cora Pisano MD LAB BLOOD ORDERAB LES Final Result [facility] [address] [place] [phone] * Syphilis Screen (06/30/2025 3:34 PM EDT) Syphilis Screen Nonreactive Nonreactive [facility] Blood 06/30/2025 3:34 PM EDT 06/30/2025 6:18 PM EDT us Cora Pisano MD LAB BLOOD ORDERAB LES Final Result Performing Organization Address [facility] Co de Phone Number [facility] [address] [place] [phone] * HIV-1/2 Antigen and Antibodies, Fourth Generation, with Reflexes (06/30/2025 3:34 PM EDT) HIV AB/AG Nonreactive Nonreactive [facility] Comment:HIV-1 p24 Ag and/or HIV-1/HIV-2 Ab not detected.A test result that is nonreactive does not exclude thepossibility of exposure to or infection with HIV-1 and/orHIV-2. Nonreactive results in this assay for individualswith prior exposure to HIV-1 and/or HIV-2 may be due toantigen and antibody levels that are below the limit ofdetection of this assay.The [employer] HIV Ag/Ab Combo assay result andsupplemental assay results should be interpreted inconjunction with the patient's clinical presentation,history and other laboratory results. If the results areinconsistent with clinical evidence, additional testing issuggested to confirm the result. Blood Venous blood specimen / Unknown 06/30/2025 3:34 PM EDT 06/30/2025 6:18 PM EDT us Cora Pisano MD LAB BLOOD ORDERAB LES Final Result Performing Organization Address [facility]/ZIP Co de Phone Number [facility] [address] [place] [address] [phone] * Hepatitis C Antibody with Reflex to HCV, RNA, Quantitative, Real-Time PCR (06/30/2025 3:34 PM EDT) Hepatitis C Antibody Nonreactive Nonreactive [facility] Comment:Antibodies to HCV no t detected; does not exclude early acuteHCV infection. Blood Venous blood specimen / Unknown 06/30/2025 3:34 PM EDT 06/30/2025 6:18 PM EDT us Cora Pisano MD LAB BLOOD ORDERAB LES Final Result Performing Organization Address [facility] Co de Phone Number [facility] [address] [place] [phone] * Hepatitis B surface antigen, EIA (06/30/2025 3:34 PM EDT) [facility] Hepatitis B Surface Ag Negative Negative [facility] Blood Venous blood specimen / Unknown 06/30/2025 3:34 PM EDT 06/30/2025 6:18 PM EDT us Cora Pisano MD LAB BLOOD ORDERAB LES Final Result Performing Organization Address [facility] Co de Phone Number [facility] [address] [place] [phone] * Hepatitis B Surface Antibody, Qualitative (06/30/2025 3:34 PM EDT) Pathologist [facility] ~Hepatitis B Surface Antibody REACTIVE Nonreactive [facility] Comment:REACTIVE: > 11.99 mI U/mL Blood Venous blood specimen / Unknown 06/30/2025 3:34 PM EDT 06/30/2025 6:18 PM EDT us Cora Pisano MD LAB BLOOD ORDERAB LES Final Result Performing Organization Address [facility] Co de Phone Number [facility] [address] [place] [phone] * Hepatitis B Core Antibody, Total (06/30/2025 3:34 PM EDT) Pathologist [facility] Hepatitis B Core Antibody Nonreactive Nonreactive [facility] Blood Venous blood specimen / Unknown 06/30/2025 3:34 PM EDT 06/30/2025 6:18 PM EDT us Cora Pisano MD LAB BLOOD ORDERAB LES Final Result Performing Organization Address [facility] Co de Phone Number [facility] [address] [place] [phone] * Hemoglobin A1c (06/30/2025 3:34 PM EDT) Hemoglobin A1c 5.1 <6.0 % [facility] Comment:Hemoglobin A1C Refer ence Range Adults: 4.8 - 6.0 % Non diabetic: < 6.0 % Goal: < 7.0 %Additional Action Suggested: > 8.0 %Note: Hemoglobin A1c results are invalid for patients with abnormal amounts of HbF. Blood transfusions may impact the HbA1c concentration in the patient sample. Estimated Average Glucose 100 mg/dL [facility] Comment:eAG = Estimated ave rage glucose which is %A1C expressed asaverage glucose, using the formula of the S3F-AxhuehcOptcnhq Glucose study (ADAG), Diabetes Care, Vol.31,#8,2007 Blood Venous blood specimen / Unknown 06/30/2025 3:34 PM EDT 06/30/2025 4:07 PM EDT us Cora Pisano MD LAB BLOOD ORDERAB LES Final Result Performing Organization Address City/[facility]/ZIP Co de Phone Number [facility] [address] [place] [phone] * (ABNORMAL) Comprehensive Metabolic Panel (06/30/2025 3:34 PM EDT) Sodium 142 135 - 145 mmol/L [facility] Potassium 3.7 3.3 - 5.1 mmol/L [facility] Chloride 108 96 - 108 mmol/L [facility] Carbon Dioxide 26 22 - 29 mmol/L [facility] Anion Gap 12 12 - 20 [facility] Urea Nitrogen (BUN) 10 9 - 16 mg/dL [facility] Creatinine, Serum 0.61 0.5 - 1.4 mg/dL [facility] Estimated Glomerular Filt Rate >60 [facility] Comment:Chronic Kidney Disea se: Estimated GFR < 60 mL/min/[id number] Kidney Disease: Estimated GFR < 15 mL/min/1.73m2 Glucose 84 60 - 115 mg/dL [facility] Calcium 9.4 8.4 - 10.2 mg/dL [facility] Bilirubin, Total 0.6 0.0 - 1.0 mg/dL [facility] Aspartate Amino Transferase 25 5 - 31 U/L [facility] Alanine Aminotransferase 21 0 - 31 U/L [facility] Total Protein 7.2 6.5 - 8.0 g/dL [facility] Albumin Level 5.1(H) 3.5 - 5.0 g/dL [facility] Alkaline Phosphatase 47 39 - 117 U/L [facility] Blood Venous blood specimen / Unknown 06/30/2025 3:34 PM EDT 06/30/2025 6:18 PM EDT us Cora Pisano MD LAB BLOOD ORDERAB LES Final Result Performing Organization Address [facility]/ZIP Co de Phone Number [facility] [address] [place] [phone] * Ferritin (06/30/2025 3:34 PM EDT) Ferritin 103 10 - 122 ng/mL [facility] Blood Venous blood specimen / Unknown 06/30/2025 3:34 PM EDT 06/30/2025 6:18 PM EDT us Cora Pisano MD LAB BLOOD ORDERAB LES Final Result Performing Organization Address [facility] Co de Phone Number [facility] [address] [place] [phone] * (ABNORMAL) Iron And Total Iron Binding Capacity (06/30/2025 3:34 PM EDT) Iron 145 30 - 160 mcg/dL [facility] Total Iron Binding Capacity 238 228 - 428 mcg/dL [facility] Percent Iron Saturation 61(H) 15 - 50 % [facility] Unsaturated Iron Binding 93 ug/dL [facility] Blood Venous blood specimen / Unknown 06/30/2025 3:34 PM EDT 06/30/2025 6:18 PM EDT us Cora Pisano MD LAB BLOOD ORDERAB LES Final Result [facility] [address] [place] [phone] * CBC auto differential (06/30/2025 3:34 PM EDT) Pathologist [facility] White Blood Count 7.0 4.8 - 10.8 X10*3/uL [facility] Red Blood Count 4.41 4.20 - 5.50 X10*6/uL [facility] Hemoglobin 12.8 12.0 - 16.0 g/dl [facility] Hematocrit 38.6 37.0 - 47.0 % [facility] Mean Corpuscular Volume 87.5 80.0 - 98.0 fL [facility] Mean Corpuscular Hemoglobin 29.0 27.0 - 33.0 pg [facility] Mean Corpuscular HGB Conc 33.2 31.0 - 35.0 g/dl [facility] Red Cell Distribution Width 13.0 11.0 - 16.0 % [facility] Platelet Count 237 160 - 400 X10*3/uL [facility] Mean Platelet Volume 11.1 9.4 - 12.3 fL [facility] Neutrophils Percent Auto 59.5 45 - 73 % [facility] Imm Gran Pct Auto 0.3 0.0 - 0.4 % [facility] Lymphocytes Percent Auto 32.9 20 - 40 % [facility] Monocytes Percent Auto 6.7 2 - 11 % [facility] Eosinophils Percent Auto 0.3 0 - 4 % [facility] Basophils Percent Auto 0.3 0 - 2 % [facility] NRBC Pct Auto 0.0 0.0 - 0.2 /100WBC [facility] Neutrophils Absolute Auto 4.2 2.0 - 8.3 x10*3/uL [facility] Imm Gran Abs Auto 0.02 0.00 - 0.03 X10*3/uL [facility] Lymphocytes Absolute Auto 2.3 1.2 - 4.9 X10*3/uL [facility] Monocytes Absolute Auto 0.5 0.1 - 1.2 X10*3/uL [facility] Eosinophils Absolute Auto 0.0 0.0 - 0.4 X10*3/uL [facility] Basophils Absolute Auto 0.0 0.0 - 0.2 X10*3/uL [facility] NRBC Abs Auto 0.000 0.0 - 0.012 X10*3/uL [facility] Blood Venous blood specimen / Unknown 06/30/2025 3:34 PM EDT 06/30/2025 4:07 PM EDT Cora Pisano MD LAB BLOOD ORDERAB LES Final Result [facility] [address] [place] [phone] * Chlamydia/Trichomonas/Neisseria gonorrhoeae, PCR, Urine (06/30/2025 1:34 PM EDT) CT PCR, Urine NOT DETECTED Not Detect. [facility] Comment:A not detected test result does not exclude the possibilityof infection because test results can be affected byimproper specimen collection, concurrent antibiotic therapy,or the number of organisms in the specimen which may bebelow the sensitivity of the test. As with many diagnostictests, results from the Xpert CT/NG assay should beinterpreted in conjunction with other laboratory andclinical data available to the clinician.The Xpert CT/NG assay should not be used for the evaluationof suspected sexual abuse or for other medico-legalindications. Additional testing is recommended in anycircumstance when false positive or false negative resultscould lead to adverse medical, social or psychologicalconsequences. NG PCR, Urine NOT DETECTED Not Detect. [facility] Comment:A not detected test result does not exclude the possibilityof infection because test results can be affected byimproper specimen collection, concurrent antibiotic therapy,or the number of organisms in the specimen which may bebelow the sensitivity of the test. As with many diagnostictests, results from the Xpert CT/NG assay should beinterpreted in conjunction with other laboratory andclinical data available to the clinician.The Xpert CT/NG assay should not be used for the evaluationof suspected sexual abuse or for other medico-legalindications. Additional testing is recommended in anycircumstance when false positive or false negative resultscould lead to adverse medical, social or psychologicalconsequences. Urine (Urine, Random) 06/30/2025 1:34 PM EDT 06/30/2025 4:12 PM EDT us Cora Pisano MD LAB URINE ORDERAB LES Final Result [facility] [address] [place] [phone] documented in this encounter Visit Diagnoses Diagnosis Annual physical exam- Primary Routine general medical examination at a health care facility Left lower quadrant pain Abdominal pain, left lower quadrant Encounter for immunization Health care maintenance Depression, unspecified depression type Axillary hyperhidrosis Left upper quadrant abdominal pain documented in this encounter Additional Health Concerns Assessment Noted Time PHQ-9 Depression Total Score: 8 06/30/20 25 3:47 PM EDT documented as of this encounter Care Teams Human Resource Intern Relationship Specialty Start Date End Date Cora Jimenez MD [address] [place] [phone] PCP - General Internal Medicine 07/17/23 documented as of this encounter
--- NOTE | ~2025-07-03 | US_ITS ---
EXAMINATION: US DIAGNOSTIC ULTRASOUND BREAST, RIGHT CLINICAL INFORMATION: Right breast 8-10 o'clock area of lump and pinching sensation, similar as in the prior study. COMPARISON: Right breast ultrasound on June 19, 2022 FINDINGS: Targeted ultrasound of the right breast was performed at the location of the clinical concern. The survey centered along the 8:00-10:00 axis did not reveal suspicious sonographic findings. Results are provided to the patient at time of visit by the technologist. US/US Breast RT Limited Mamm Only IMPRESSION: Right breast: Negative, no evidence of malignancy. No suspicious sonographic findings to accounts for patient's palpable concern. Clinical follow-up is recommended, independent of imaging findings. ASSESSMENT: Category 1: Negative Electronically signed by: Dexter Magana MD 07/03/2025 11:41 AM EDT
--- OUTSIDE RECORDS SUMMARY | 2025-07-03 14:09 | XMS_ITS | Encounter Summary ---
Author Organization [employer] Address [address] [facility] [address]t [place] [address] Care Team Providers Care Senior Chemical Process Engineer Name Role Phone Cora Jimenez MD Primary Care Pro vider Reason for Visit * Reason Onset Date Comments chart prep 06/29/2025 Encounter Details Date Type Department Care Team ([facility] st Contact Info) Description 06/29/2025 Telephone [facility] MED[facility]INE [address] [place] [address] Cora Jimenez MD [address] [place] [address] chart prep Social History Tobacco Use Types [...] with others, in a hotel, in a skilled nursing, living outside on the street, on a [...] the past 12 months, has t he [employer], gas, oil or water company threatened to [...] [facility] AD[facility] D[facility] [address] [place] [phone] Vikram Hood documented as of this encounter Visit Diagnoses Not on filedocumented in this encounter Additional Health Concerns Assessment Noted Time PHQ-9 Depression Total Score: 15 024 12:00 PM EDT documented as of this encounter Care Teams Senior Chemical Process Engineer Relationship Specialty Start Date End Date Cora Jimenez MD [address] [place] [address] PCP - General Internal Medicine 07/17/23 documented as of this encounter
--- OUTSIDE RECORDS SUMMARY | 2025-07-03 14:09 | XMS_ITS | Encounter Summary ---
Author Organization [facility] Address [address] [facility] [address] [place] [address] Care Team Providers Care Crab Steamer Name Role Phone Cora Jimenez MD Primary Care Pro vider Encounter Details Date Type Department Care Team (Late st Contact Info) Description 06/10/2023 Abstract [facility] MED[facility] [address] [place] [address] Swati Villalpando Social History Tobacco Use Types [...] Description 12/05/2025 10:15 AM EDT Office Visit [facility] D[facility] [address] [place] [address] Vikram Hood documented as of this encounter [...] on filedocumented in this encounter Care Teams Crab Steamer Relationship Specialty Start Date End Date Cora Jimenez MD [address] [place] [phone] PCP - General Internal Medicine 07/17/23 documented as of this encounter
--- OUTSIDE RECORDS SUMMARY | 2025-07-03 14:09 | XMS_ITS | Data Portability ---
Author Organization [facility], [address] Address [address] [place] [address] Assessment No assessment recorded. Plan of Treatment [...] ICD10 Code Diagnosis IMO Codes Diagnosis Note [id number] [facility] [address] [address] [place] [address] 04/28/2024 12:41:43 04/28/2024 13:15:53 History and physical examination, occupation [id number] Z02.1 Health Concerns Section Related Observation LastModified [...]
--- OUTSIDE RECORDS SUMMARY | 2025-07-03 14:09 | XMS_ITS | Encounter Summary ---
Author Organization [employer] Address [address] [facility] [address] [place] [address] Care Team Providers Care Phlebotomy Technologist Name Role Phone Cora Jimenez MD Primary [...] with others, in a hotel, in a group home, living outside on the street, on [...] [facility] [address] [place] [address] Vikram Hood documented as of this encounter Visit Diagnoses Not on filedocumented in this encounter Additional Health Concerns Assessment Noted Time PHQ-9 Depression Total Score: 8 06/30/20 25 3:47 PM EDT documented as of this encounter Care Teams Phlebotomy Technologist Relationship Specialty Start Date End Date Cora Jimenez MD [address] [place] [phone] PCP - General Internal Medicine 07/17/23 documented as of this encounter
--- OUTSIDE RECORDS SUMMARY | 2025-07-03 14:10 | XMS_ITS | Clinical Summary ---
Author Organization [employer] Address [address] [facility] 7[address] [place] [address] Care Team Providers Care Franchise Business Consultant Name Role Phone Cora Jimenez MD Primary [...] Active Problems Problem Noted Date Diagnosed Date Abdominal pain 06/30/2025 Axillary hyperhidrosis 06/29/2024 Health care maintenance 06/19/2023 Depression 06/19/2023 Marijuana abuse 06/19/2023 Atopic dermatitis 06/11/2023 Seasonal allergic rhinitis 11/20/2015 Resolved Problems Problem Noted Date Diagnosed Date Resolved Date Chest discomfort 06/29/2024 06/30/2025 Encounters Date Type Department Care Team Description 06/30/2025 1:30 PM EDT Office Visit [facility] MEDICINE [address] [place] [address] Cora Jimenez MD Annual physical exam (Primary Dx); Left lower quadrant pain; Encounter for immunization; Health care maintenance; Depression, unspecified depression type; Axillary hyperhidrosis; Left upper quadrant abdominal pain 06/30/2025 Results Follow-Up [facility] MEDICINE [address] [place] [address] Cora Jimenez MD CBC auto differential, Iron And Total Iron Binding Capacity, Ferritin, Additional followed-up results: 06/30/2025 Travel 06/29/[address] [address] Cora Jimenez MD chart prep 06/27/2025 2:15 PM EDT Procedure Visit [address] [address] Josie Rodriguez CNM Mass of upper outer quadrant of right breast (Primary Dx); Checking of intrauterine device; Labial cyst 06/27/2025 Travel 06/26/2025 Travel 06/26/[address] [address] Josie Rodriguez CNM chart prep 06/23/2025 Patient Outreach [address] [address] Cora Jimenez MD Care Coordination (CHW outreach for SDOH housing search-LVM ) 06/23/2025 Patient Outreach [address] [address] Cora Jimenez MD Pre-visit Planning (SDOH Screening positive and Tobacco screening negative) 06/05/2025 3:00 PM EDT Office Visit [facility] CH[facility] ADULT DENTAL [address] [place] [address] Vikram Hood Dental calculus (Primary Dx) 06/05/[address] [address] Cathie Stewart [place] Appointment; Hepatic Disease 04/20/2025 Telephone [facility] [address] [place] [phone] Vannessa Sharma MA 04/20/2025 Telephone [facility] [address] [place] [phone] Vannessa Sharma MA June [employer] recall 04/17/[address] [address] Cora Jimenez MD oct recall from Last [...] with others, in a hotel, in a assisted, living outside on the street, on a [...] Description 12/05/2025 10:15 AM EDT Office Visit [facility] ADULT DENTAL [address] [place] [address] Vikram Hood Health Maintenance Due Date Last [...] Vaccine Completed 12/06/2015, 012 HIV Screening Completed 06/30/2025, 01/05, 06/18/2023 Hepatitis C Screening Completed 06/30/2025 , 01/16/2025, 06/18/2023 Influenza Vaccine Completed 06/30/2025, , 06/05/2016, Additional [...] of upper outer quadrant of right breast TSH W/REFLEX TO FT4 Routine 06/30/2025 3:34 PM EDT Annual physical exam SYPHILIS SCREEN Routine 06/30/2025 3:34 PM EDT [...] 06/30/2025 3:34 PM EDT Annual physical exam CBC WITH AUTO DIFFERENTIAL Routine 06/30/2025 3:34 PM EDT Annual physical exam CHLAMYDIA/TRICHOMONAS/ NEISSERIA GONORRHOEAE, PCR, URINE Routine 06/30/2025 1:34 PM EDT Annual physical exam ORAL HYGIENE INSTRUCTIONS Routine 06/05/2025 3:00 PM EDT CASE PRESENTATION, DETAILED AND EXTENSIVE TREATMENT PLANNING Routine 06/05/2025 3:00 PM EDT PROPHYLAXIS - ADULT Routine 06/05/2025 3 :00 PM EDT INTRAORAL - COMPLETE SERIES OF RADIOGRAPHIC IMAGES Routine 11/29/2024 8:00 AM EDT PERIODIC ORAL EVALUATION - ESTABLISHED PATIENT Routine 11/29/2024 8:00 AM EDT PAP SMEAR Routine 07/07/2024 10:56 AM EDT Cervical cancer screening from Last 3 Months or Most Recently Relevant to Health Maintenance Results * BI US Breast Limited Right (07/03/2025 11:15 AM EDT) Anatomical Region Laterality Modality Breast Right Ultrasound 07/03/2025 11:1 5 AM EDT Narrative 07/03/2025 11:45 AM EDT [address] [place] [address] Ultrasound Report Signed Patient: Diaz Field MR#: [id number] : 2000 Acct:[id number] Age/Sex: 24 / F ADM Date: 07/03/25 Loc: HO.MAMMO Attending Dr: Cora Pisano MD Ordering Physician: JOSIE RODRIGUEZ CNM Date of Service: 07/03/25 Procedure(s): US Breast RT Limited Mamm Only Accession Number(s): [id number] cc: Cora Jimenez MD; JOSIE RODRIGUEZ CNM [...] 07/03/25 1141 DD/ 1115 TD/TT: 07/03/25 1127 Grain Sacker: Procedure Note Donotuseinterpreter, Image - 07/03/[address] [place] [address] Ultrasound Report Signed Patient: Diaz Field MMR#: [id number] : 2000Acct:[id number] Age/Sex: 24 / FADM Date: 07/03/25 Loc: HO.MAMMO Attending Dr: Cora Pisano MD Ordering Physician: JOSIE RODRIGUEZ CNM Date of Service: 07/03/25 Procedure(s): US Breast RT Limited Mamm Only Accession Number(s): [id number] cc: Cora Jimenez MD; JOSIE RODRIGUEZ CNM [...] 07/03/25 1141 DD/ 1115 TD/TT: 07/03/25 1127 Grain Sacker: us Josie Rodriguez CNM IMG US PROCEDURES Edited Result - Final * Syphilis Screen (06/30/2025 3:34 PM EDT) Syphilis Screen Nonreactive Nonreactive [facility] Blood 06/30/2025 3:34 PM EDT 06/30/2025 6:18 PM EDT oCra Pisano MD LAB BLOOD ORDERAB LES Final Result Performing Organization Address City/[facility]/ZIP Co de Phone Number [facility] [address] [place] [address] [phone] * TSH with Reflex to Free T4 (06/30/2025 3:34 PM EDT) Pathologist [facility] TSH reflex Free T4 0.53 0.32 - 4.0 uIU/mL [facility] Blood 06/30/2025 3:34 PM EDT 06/30/2025 6:18 PM EDT Cora Pisano MD LAB BLOOD ORDERAB LES Final Result Performing Organization Address [facility] Co de Phone Number [facility] [address] [place] [address] [phone] * CBC auto differential (06/30/2025 3:34 PM EDT) [facility] White Blood Count 7.0 4.8 - 10.8 X10*3/uL [facility] Red Blood Count 4.41 4.20 - 5.50 X10*6/uL [facility] Hemoglobin 12.8 12.0 - 16.0 g/dl [facility] Hematocrit 38.6 37.0 - 47.0 % [facility] Mean Corpuscular Volume 87.5 80.0 - 98.0 fL [facility] Mean Corpuscular Hemoglobin 29.0 27.0 - 33.0 pg [facility] Mean Corpuscular HGB Conc 33.2 31.0 - 35.0 g/dl [facility] Red Cell Distribution Width 13.0 11.0 - 16.0 % [facility] Platelet Count 237 160 - 400 X10*3/uL [facility] Mean Platelet Volume 11.1 9.4 - 12.3 fL [facility] Neutrophils Percent Auto 59.5 45 - 73 % [facility] Imm Gran Pct Auto 0.3 0.0 - 0.4 % [facility] Lymphocytes Percent Auto 32.9 20 - 40 % [facility] Monocytes Percent Auto 6.7 2 - 11 % [facility] Eosinophils Percent Auto 0.3 0 - 4 % [facility] Basophils Percent Auto 0.3 0 - 2 % [facility] NRBC Pct Auto 0.0 0.0 - 0.2 /100WBC [facility] Neutrophils Absolute Auto 4.2 2.0 - 8.3 x10*3/uL [facility] Imm Gran Abs Auto 0.02 0.00 - 0.03 X10*3/uL [facility] Lymphocytes Absolute Auto 2.3 1.2 - 4.9 X10*3/uL [facility] Monocytes Absolute Auto 0.5 0.1 - 1.2 X10*3/uL [facility] Eosinophils Absolute Auto 0.0 0.0 - 0.4 X10*3/uL [facility] Basophils Absolute Auto 0.0 0.0 - 0.2 X10*3/uL [facility] NRBC Abs Auto 0.000 0.0 - 0.012 X10*3/uL [facility] Blood Venous blood specimen / Unknown 06/30/2025 3:34 PM EDT 06/30/2025 4:07 PM EDT Cora Pisano MD LAB BLOOD ORDERAB LES Final Result [facility] [address] [place] [phone] * Hepatitis C Antibody with Reflex to HCV, RNA, Quantitative, Real-Time PCR (06/30/2025 3:34 PM EDT) Hepatitis C Antibody Nonreactive Nonreactive [facility] Comment:Antibodies to HCV no t detected; does not exclude early acuteHCV infection. Blood Venous blood specimen / Unknown 06/30/2025 3:34 PM EDT 06/30/2025 6:18 PM EDT Cora Pisano MD LAB BLOOD ORDERAB LES Final Result Performing Organization Address [facility] Co de Phone Number [facility] [address] [place] [phone] * (ABNORMAL) Iron And Total Iron Binding Capacity (06/30/2025 3:34 PM EDT) Iron 145 30 - 160 mcg/dL [facility] Total Iron Binding Capacity 238 228 - 428 mcg/dL [facility] Percent Iron Saturation 61(H) 15 - 50 % [facility] Unsaturated Iron Binding 93 ug/dL [facility] Blood Venous blood specimen / Unknown 06/30/2025 3:34 PM EDT 06/30/2025 6:18 PM EDT us Cora Pisano MD LAB BLOOD ORDERAB LES Final Result Performing Organization Address [facility] Co de Phone Number [facility] [address] [place] [phone] * Hepatitis B surface antigen, EIA (06/30/2025 3:34 PM EDT) Pathologist [facility] Hepatitis B Surface Ag Negative Negative [facility] Blood Venous blood specimen / Unknown 06/30/2025 3:34 PM EDT 06/30/2025 6:18 PM EDT us Cora Pisano MD LAB BLOOD ORDERAB LES Final Result Performing Organization Address [facility] Co de Phone Number [facility] [address] [place] [phone] * Hepatitis B Core Antibody, Total (06/30/2025 3:34 PM EDT) Hepatitis B Core Antibody Nonreactive Nonreactive [facility] Blood Venous blood specimen / Unknown 06/30/2025 3:34 PM EDT 06/30/2025 6:18 PM EDT Cora Pisano MD LAB BLOOD ORDERAB LES Final Result Performing Organization Address [facility]/ZIP Co de Phone Number [facility] [address] [place] [phone] * HIV-1/2 Antigen and Antibodies, Fourth Generation, with Reflexes (06/30/2025 3:34 PM EDT) Pathologist [facility] HIV AB/AG Nonreactive Nonreactive [facility] Comment:HIV-1 p24 Ag and/or HIV-1/HIV-2 Ab not detected.A test result that is nonreactive does not exclude thepossibility of exposure to or infection with HIV-1 and/orHIV-2. Nonreactive results in this assay for individualswith prior exposure to HIV-1 and/or HIV-2 may be due toantigen and antibody levels that are below the limit ofdetection of this assay.The [employer] HIV Ag/Ab Combo assay result andsupplemental assay results should be interpreted inconjunction with the patient's clinical presentation,history and other laboratory results. If the results areinconsistent with clinical evidence, additional testing issuggested to confirm the result. Blood Venous blood specimen / Unknown 06/30/2025 3:34 PM EDT 06/30/2025 6:18 PM EDT Cora Pisano MD LAB BLOOD ORDERAB LES Final Result Performing Organization Address [facility]/ZIP Co de Phone Number [facility] [address] [place] [phone] * Hepatitis B Surface Antibody, Qualitative (06/30/2025 3:34 PM EDT) Pathologist [facility] ~Hepatitis B Surface Antibody REACTIVE Nonreactive [facility] Comment:REACTIVE: > 11.99 mI U/mL Blood Venous blood specimen / Unknown 06/30/2025 3:34 PM EDT 06/30/2025 6:18 PM EDT Cora Pisano MD LAB BLOOD ORDERAB LES Final Result Performing Organization Address [facility]/ZIP Co de Phone Number [facility] [address] [place] [phone] * Hemoglobin A1c (06/30/2025 3:34 PM EDT) Hemoglobin A1c 5.1 <6.0 % [facility] Comment:Hemoglobin A1C Refer ence Range Adults: 4.8 - 6.0 % Non diabetic: < 6.0 % Goal: < 7.0 %Additional Action Suggested: > 8.0 %Note: Hemoglobin A1c results are invalid for patients with abnormal amounts of HbF. Blood transfusions may impact the HbA1c concentration in the patient sample. Estimated Average Glucose 100 mg/dL [facility] Comment:eAG = Estimated ave rage glucose which is %A1C expressed asaverage glucose, using the formula of the Q6F-XvreumpUjgzncv Glucose study (ADAG), Diabetes Care, Vol.31,#8,Apr. 2007 Blood Venous blood specimen / Unknown 06/30/2025 3:34 PM EDT 06/30/2025 4:07 PM EDT us Cora Pisano MD LAB BLOOD ORDERAB LES Final Result Performing Organization Address [facility] Co de Phone Number [facility] [address] [place] [phone] * Ferritin (06/30/2025 3:34 PM EDT) Ferritin 103 10 - 122 ng/mL [facility] Blood Venous blood specimen / Unknown 06/30/2025 3:34 PM EDT 06/30/2025 6:18 PM EDT us Cora Pisano MD LAB BLOOD ORDERAB LES Final Result Performing Organization Address [facility]/ZIP Co de Phone Number [facility] [address] [place] [phone] * (ABNORMAL) Comprehensive Metabolic Panel (06/30/2025 3:34 PM EDT) Pathologist [facility] Sodium 142 135 - 145 mmol/L [facility] Potassium 3.7 3.3 - 5.1 mmol/L [facility] Chloride 108 96 - 108 mmol/L [facility] Carbon Dioxide 26 22 - 29 mmol/L [facility] Anion Gap 12 12 - 20 [facility] Urea Nitrogen (BUN) 10 9 - 16 mg/dL [facility] Creatinine, Serum 0.61 0.5 - 1.4 mg/dL [facility] Estimated Glomerular Filt Rate >60 [facility] Comment:Chronic Kidney Disea se: Estimated GFR < 60 mL/min/1.23l1Cpiwgm Kidney Disease: Estimated GFR < 15 mL/min/1.73m2 Glucose 84 60 - 115 mg/dL [facility] Calcium 9.4 8.4 - 10.2 mg/dL [facility] Bilirubin, Total 0.6 0.0 - 1.0 mg/dL [facility] Aspartate Amino Transferase 25 5 - 31 U/L [facility] Alanine Aminotransferase 21 0 - 31 U/L [facility] Total Protein 7.2 6.5 - 8.0 g/dL [facility] Albumin Level 5.1(H) 3.5 - 5.0 g/dL [facility] Alkaline Phosphatase 47 39 - 117 U/L [facility] Blood Venous blood specimen / Unknown 06/30/2025 3:34 PM EDT 06/30/2025 6:18 PM EDT us Cora Pisano MD LAB BLOOD ORDERAB LES Final Result [facility] [address] [place] [address] [phone] * Chlamydia/Trichomonas/Neisseria gonorrhoeae, PCR, Urine (06/30/2025 1:34 PM EDT) Pathologist [facility] CT PCR, Urine NOT DETECTED Not Detect. [facility] Comment:A not detected test result [...] NG PCR, Urine NOT DETECTED Not Detect. [facility] Comment:A not detected test result [...] MD LAB URINE ORDERAB LES Final Result [facility] [address] [place] [phone] * Pap Smear (07/07/2024 10:56 AM EDT) Swab 07/07/2024 10:5 6 AM EDT 07/08/2024 10:23 AM EDT Narrative [facility] - 07/19/2024 12:40 PM EST ----- ------- Name: Diaz Field Age/Sex: 23/F : 2000 Unit#: [id number] Attend Dr: JOSIE RODRIGUEZ CNM Re07/07/24 Status: DEP [facility] ----- ------- SPEC : [id number] RECD: 07/08/24 STATUS: RAY WICK NUM: [id number] AWILDA: 07/07/[address] [facility] [address]: JOSIE RODRIGUEZ [facility] ENTERED: 07/08/24 SP TYPE: Pap Smr CESAR DR: ORDERED: Pap Smear Addendum Addendum 1 Entered: 07/19/24 HPV High Risk: Negative HPV Genotyping 16: Negative HPV Genotyping 18: Negative Addendum Signed (signature on file) Vipin Jaime MD 07/19/24 124 ----- ------- Interpretation Satisfactory for evaluation. No endocervical cells seen. Negative for intraepithelial lesion or malignancy. Clinical Information LMP: Unknown date Previous PAP test: Unknown date Material Received ThinPrep-Vaginal/Cervical ----- ------- Signed (signature on file) SANJAY Bonilla (ASCP) 07/11/24 1242 (signature on file) Vipin Jaime MD 07/19/24 1240 ----- ------- END OF REPORT Josie Rodriguez [facility] CYTOLOGY ORDERABLES F inal Result [facility] [address] [place] [phone] from Last 3 Months or Most Recently Relevant to Health Maintenance Insurance [facility] AD[place] Care Teams Franchise Business Consultant Relationship Specialty Start Date End Date Cora Jimenez MD [address] [place] [address] PCP - General Internal Medicine 07/17/23
--- OUTSIDE RECORDS SUMMARY | 2025-07-03 14:10 | XMS_ITS | Encounter Summary ---
Author Organization [employer] Address [address] [facility] [address] [place] [address] Care Team Providers Care Embossing Clerk Name Role Phone Cora Jimenez MD Primary Care Pro vider Encounter Details Date Type Department Care Team (Late st Contact Info) Description 06/30/2025 Results Follow-Up [facility] [address] [place] [address] Cora Jimenez MD [address] [place] [address] CBC auto differential, Iron And Total Iron Binding Capacity, Ferritin, Additional followed-up results: 10 Social History Tobacco Use Types Packs/Day Years [...] with others, in a hotel, in a jail, living outside on the street, on a [...] the past 12 months, has t he [employer], gas, oil or water company threatened to [...] to sit still 1 06/30/2025 3:47 PM EDT Cathie Stewart MA Becoming easily annoyed or irritable 3 06/30/2025 3:47 PM EDT Cathie Stewart MA Feeling afraid as if somethi ng awful might happen 0 06/30/2025 3:47 PM EDT Cathie Stewart MA GUILLERMO-7 Total Score 11 06/30/2025 3:47 PM EDT Cathie Stewart MA documented as of this encounter Miscellaneous Notes * Result Encounter Note - Cora Pisano MD - 06/30/2025 8:30 PM EDT Will inform result when all avaialble documented in this encounter Plan of Treatment Upcoming Encounters Date Type Department Care Team (Late st Contact Info) Description 12/05/2025 10:15 AM EDT Office Visit [facility] [address] [place] [address] Vikram Hood documented as of this encounter Visit Diagnoses Not on filedocumented in this encounter Additional Health Concerns Assessment Noted Time PHQ-9 Depression Total Score: 8 06/30/20 25 3:47 PM EDT documented as of this encounter Care Teams Embossing Clerk Relationship Specialty Start Date End Date Cora Jimenez MD [address] [place] [phone] PCP - General Internal Medicine 07/17/23 documented as of this encounter
== END 2025-07-03 11:08 | disposition home or self-care (01) ==
LOC: HO.MAMMO 11:07
PROVIDERS: PCP Student in an Organized Health Care Education/Training Program; Visit Provider Student in an Organized Health Care Education/Training Program
DX: N63.11 Unspecified lump in the right breast, upper outer quadrant (principal)
CPT/HCPCS: 76642